=== PATIENT | male | born 1950 ===

== ENCOUNTER → 2018-10-03 13:18 | Outpatient (CLI) | payer MEDICARE, SELFPAY ==
[2018-10-03 13:56] LABS: Add Manual Diff / Slide Review NO; Basophils Absolute Auto 100 /uL (0-100); Basophils Percent Auto 0.8 % (0-2); Eosinophils Absolute Auto 100 /uL (0-450); Hematocrit 41.2 % (41-53); Hemoglobin 13.7 g/dL (13.5-17.5); Lymphocytes Absolute Auto 2300 /uL (1100-4500); Lymphocytes Percent Auto 23.7 % (25-40); Mean Corpuscular HGB Conc 33.4 % (30-36); Mean Corpuscular Hemoglobin 29.2 PG (26-34); Mean Corpuscular Volume 87.5 fL (80-100); Monocytes Absolute Auto 800 /uL (0-900); Monocytes Percent Auto 8.2 % (3-14); Neutrophils Absolute Auto 6500 /uL (1500-7000); Neutrophils Percent Auto 66.3 % (50-75); Platelet Count 259 X10^3/uL (150-400); Red Cell Distribution Width 14.9 % (11.6-14.8); White Blood Cell Count 9.8 X10^3/uL (4.5-11.0)
[2018-10-03 15:31] LABS: Hemoglobin A1C% w Est Avg Glu 5.5 % (4.0-6.0)
[2018-10-03 15:42] LABS: Free T3, Triiodothyronine Free 5.22 pg/mL (2.77-5.27); Free T4, Direct Thyroxine 1.14 ng/dL (0.78-2.19)
[2018-10-03 15:55] LABS: Thyroid Stimulating Hormone 4.73 uIU/mL (0.47-4.68)
[2018-10-03 15:56] LABS: Alanine Aminotransferase 17 IU/L (21-72); Albumin 4.3 g/dL (3.5-5.0); Albumin Globulin Ratio 1.2 (1.0-2.8); Alkaline Phosphatase 105 U/L (38-126); Aspartate Aminotransferase 33 IU/L (17-59); BUN Creatinine Ratio 17.3 (6-22); Bilirubin Total 0.5 mg/dL (0.2-1.3); Blood Urea Nitrogen 19 mg/dL (9-20); Calcium 9.8 mg/dL (8.4-10.2); Carbon Dioxide 24 mmol/L (22-32); Chloride 95 mmol/L (98-107); Estimated Glomerular Filt Rate > 60.0 mL/min (>60); Globulin 3.5 g/dL (1.7-4.1); Glucose 121 mg/dL (80-110); HEMOLYSIS < 15 (0-50); Potassium 4.7 mmol/L (3.4-5.1); Sodium 134 mmol/L (137-145); Total Protein 7.8 g/dL (6.3-8.2)
== END ==
PROVIDERS: PCP Internal Medicine; Visit Provider Internal Medicine
DX: E11.9 Type 2 diabetes mellitus without complications (principal); E03.9 Hypothyroidism, unspecified; I10 Essential (primary) hypertension; F10.20 Alcohol dependence, uncomplicated
CPT/HCPCS: 36415; 80053; 83036; 84439; 84443; 84481; 85025

== ENCOUNTER → 2019-01-02 11:13 | Outpatient (CLI) | payer MEDICARE, SELFPAY ==
[2019-01-02 14:20] LABS: TSH w/ Reflex to FT4 4.22 uIU/mL (0.47-4.68)
== END ==
PROVIDERS: PCP Internal Medicine; Visit Provider Internal Medicine
DX: E03.9 Hypothyroidism, unspecified (principal)
CPT/HCPCS: 36415; 84443

== ENCOUNTER → 2019-05-14 10:44 | Outpatient (CLI) | payer MEDICARE, SELFPAY ==
[2019-05-14 11:40] LABS: Blood Urea Nitrogen 17 mg/dL (9-20); Calcium 10.1 mg/dL (8.4-10.2); Carbon Dioxide 29 mmol/L (22-32); Chloride 92 mmol/L (98-107); Cholesterol 223 mg/dL (140-199); Estimated Glomerular Filt Rate > 60.0 mL/min (>60); Glucose 89 mg/dL (80-110); HDL Cholesterol 52 mg/dL (40-60); HEMOLYSIS < 15 (0-50); LDL Cholesterol Calculated 142 mg/dL (<100); Sodium 133 mmol/L (137-145); Triglycerides 144 mg/dL (35-150)
[2019-05-14 11:49] LABS: Hemoglobin A1C% w Est Avg Glu 5.8 % (4.0-6.0)
== END ==
PROVIDERS: PCP Internal Medicine; Referring Provider Internal Medicine; Visit Provider Internal Medicine
DX: E11.9 Type 2 diabetes mellitus without complications (principal); I10 Essential (primary) hypertension
CPT/HCPCS: 36415; 80048; 80061; 83036

== ENCOUNTER → 2019-07-03 15:21 | Outpatient (CLI) | payer MEDICARE, SELFPAY ==
--- NOTE | 2019-07-03 | DI.US.S_ITS ---
PROCEDURE: US PERIPH VENOUS LOW EXTREM RT INDICATIONS: SWELLING IN RIGHT LOWER LEG TECHNIQUE: Real-time imaging, as well as color and pulse Doppler interrogation, were performed of the lower extremity deep veins from the inguinal ligament to the popliteal fossa. COMPARISON: None. FINDINGS: The common femoral, femoral and popliteal veins are normally compressible, and free of intraluminal thrombus. Color and pulse Doppler demonstrate normal phasic intraluminal flow. There is normal augmentation response to distal compression maneuver. IMPRESSION: Negative for deep venous thrombosis. Dictated by: Ji Modi M.D. on 07/03/2019 at 15:04 Approved by: Ji Modi M.D. on 07/03/2019 at 15:04
== END ==
PROVIDERS: PCP Internal Medicine; Referring Provider Physician Assistant; Visit Provider Physician Assistant
DX: M79.89 Other specified soft tissue disorders (principal)
CPT/HCPCS: 93971

== ENCOUNTER → 2020-01-09 08:05 | Outpatient (CLI) | payer MEDICARE, SELFPAY ==
[2020-01-09 09:58] LABS: TSH w/ Reflex to FT4 3.69 uIU/mL (0.47-4.68)
[2020-01-09 11:27] LABS: Cholesterol 166 mg/dL (140-199); HDL Cholesterol 47 mg/dL (40-60); LDL Cholesterol Calculated 100 mg/dL (<100); Triglycerides 95 mg/dL (35-150)
[2020-01-09 11:38] LABS: Alanine Aminotransferase 20 IU/L (<50); Albumin 4.4 g/dL (3.5-5.0); Albumin Globulin Ratio 1.2 (1.0-2.8); Alkaline Phosphatase 108 U/L (38-126); Aspartate Aminotransferase 27 IU/L (17-59); BUN Creatinine Ratio 15.5 (6-22); Bilirubin Total 0.6 mg/dL (0.2-1.3); Blood Urea Nitrogen 17 mg/dL (9-20); Calcium 9.4 mg/dL (8.4-10.2); Carbon Dioxide 27 mmol/L (22-32); Chloride 97 mmol/L (98-107); Estimated Glomerular Filt Rate > 60.0 mL/min (>60); Globulin 3.8 g/dL (1.7-4.1); Glucose 117 mg/dL (80-110); HEMOLYSIS < 15 (0-50); Potassium 4.2 mmol/L (3.4-5.1); Sodium 134 mmol/L (137-145); Total Protein 8.2 g/dL (6.3-8.2)
== END ==
PROVIDERS: PCP Internal Medicine; Referring Provider Internal Medicine; Visit Provider Internal Medicine
DX: E11.9 Type 2 diabetes mellitus without complications (principal); E03.9 Hypothyroidism, unspecified
CPT/HCPCS: 36415; 80053; 80061; 84443

== ENCOUNTER → 2020-01-30 12:11 | Outpatient (CLI) | payer MEDICARE, SELFPAY ==
[2020-01-30 13:08] LABS: Hemoglobin A1C% w Est Avg Glu 5.9 % (4.0-6.0)
== END ==
PROVIDERS: PCP Internal Medicine; Referring Provider Podiatrist; Visit Provider Podiatrist
DX: Z01.818 Encounter for other preprocedural examination (principal); R73.9 Hyperglycemia, unspecified
CPT/HCPCS: 36415; 83036; 93005

== ENCOUNTER → 2020-02-04 09:20 | Outpatient (CLI) | payer MEDICARE, SELFPAY ==
[2020-02-04 11:11] LABS: COVID19 -Nasal RAPID Negative (Negative)
== END ==
PROVIDERS: PCP Internal Medicine; Visit Provider Physician Assistant
DX: Z11.59 Encounter for screening for other viral diseases (principal)
CPT/HCPCS: 87635

== ENCOUNTER 2020-02-06 06:34 | Day surgery (SDC) | payer MEDICARE, SELFPAY ==
[2020-02-06] VITALS (7 sets, daily range): BP systolic 99–160; BP diastolic 65–98; PULSE 70–83; RESP 12–22; TEMP 36.2–36.7; O2SAT 96–99; BMI 37.0
[2020-02-06] MEDS: LACTATED RINGERS 1,000 ML 100 ML IV (07:10)
--- NOTE | 2020-02-06 07:43 | P.OP_ITS ---
Operative Date/Time/Diagnoses Date of procedure: 02/06/20 Time of procedure: 07:44 Pre-op diagnosis: Right second hammertoe with chronic ulceration Post-op diagnosis: same Procedure & Clinicians Procedure: Right second metatarsophalangeal joint amputation Same procedure as scheduled: Yes Indications: Ongoing wound to the right second rigid hammertoe. Conservative measures failed to heal it and surgical intervention is warranted. We spoke of the risks, potential complications and expected outcomes. Consent was signed and no contraindications to the procedure at this time. Surgeon: Abbey Martinez Click Yes if Unassisted: Yes Anesthesia Type: MAC +/- and Sedation Operative Notes Closure Type: primary Specimen(s): other (Second metatarsophalangeal deep culture performed on right foot) Estimated Blood Loss (mL): 10 Blood products transfused: none Tourniquet time (min): 11 Procedure in detail: The patient was brought to the operating room and placed on the operating table in the supine position. The tourniquet was placed about the right ankle. Well-padded, appropriately aligned. After induction of anesthesia the foot and ankle were prepped and draped in the usual aseptic manner. The tourniquet was inflated. After check of anesthesia a full-thickness circumfere ntial incision was made around the 2nd toe. This was then continued into the metatarsophalangeal joint linearly. The toe was carefully disarticulated. Deep swabs performed for culture at the metatarsophalangeal joint. The area was irrigated with copious amounts of normal sterile saline. No necrotic tissue or abscesses were noted. Skin and tissue was revised to allow for appropriate closure. Vessels were cauterized and ligated as necessary. 4-0 Vicryl was used subcutaneously for closure and 3-0, 4-0 nylon for the skin. The area was dressed with a sterile lightly compressive dressing. Complications: none Post-operative Condition: stable Disposition: PACU Plan for aftercare: Following a period of postoperative monitoring, the patient will be discharged to home on written and oral postoperative instructions including keeping the dressing dry and intact, avoiding significant ambulation on the foot, and elevating the foot when seated home. DVT prevention techniques have been reviewed. For the 1st postoperative visit the dressing will be changed and close to the 3rd postoperative week we will likely remove the sutures.
--- NOTE | 2020-02-06 07:43 | PM.PREOP ---
Pre-operative Note COVID-19 COVID-19 status: Negative Result date/Date tested (Pos, Neg/Pending): 02/04/20 Interval Note History & Physical reviewed/Exam performed by Physician: Yes Changes to H&P: No
[2020-02-06] MEDS: CEFAZOLIN 2 GM/100 ML FROZ.PIGGY IV (08:16)
--- NOTE | 2020-02-06 08:19 | SUR.OPER ---
Supine on padded OR bed, head on pillow, arms secured on padded arm boards at <90 degrees abduction, legs uncrossed, right leg under control of surgeon, bump under right hip, safety belt at abdomen, tape over blanket over left legs.
[2020-02-06] MEDS: LIDOCAINE 2% INJ MDV 20 ML INJ (08:33)
[2020-02-06] MEDS: BUPIVACAINE 0.5% (PF) VIAL 30 ML INJ (08:34)
== END 2020-02-06 09:40 | disposition home or self-care (01) ==
LOC: OR 06:37
PROVIDERS: PCP Internal Medicine; Referring Provider Podiatrist; Visit Provider Podiatrist
PROC: (CPT 28820; principal; 2020-02-06 07:45)
DX: E11.621 Type 2 diabetes mellitus with foot ulcer (principal); L97.522 Non-pressure chronic ulcer of other part of left foot with fat layer exposed; M20.41 Other hammer toe(s) (acquired), right foot; E11.49 Type 2 diabetes mellitus with other diabetic neurological complication; L60.3 Nail dystrophy; Z79.84 Long term (current) use of oral hypoglycemic drugs; K21.9 Gastro-esophageal reflux disease without esophagitis; I10 Essential (primary) hypertension; E78.5 Hyperlipidemia, unspecified; E03.9 Hypothyroidism, unspecified; G47.33 Obstructive sleep apnea (adult) (pediatric)
CPT/HCPCS: 28820; 87070; 87205; J0690; J2250; J2405; J2704; J3010

== ENCOUNTER → 2020-05-23 10:15 | Outpatient (CLI) | payer MEDICARE, SELFPAY ==
[2020-05-23] MEDS: COVID-19 VACC, Ad26(JANSSEN)/PF 0.5 ML IM (10:25)
== END ==
PROVIDERS: PCP Internal Medicine; Visit Provider Internal Medicine
DX: Z23 Encounter for immunization (principal)
CPT/HCPCS: 0031A; 91303

== ENCOUNTER → 2020-06-30 06:41 | Outpatient (CLI) | payer OTHER, SELFPAY ==
--- NOTE | 2020-06-30 06:59 | DI.CT.S_ITS ---
PROCEDURE: CT SINUS SCREEN WO CON INDICATIONS: Cough, post-nasal drip TECHNIQUE: Noncontrast 3.0 mm axial images acquired from the frontal sinuses to the mid-sella, with coronal and sagittal reformats. For radiation dose reduction, the following was used: automated exposure control, adjustment of mA and/or kV according to patient size. COMPARISON: None. FINDINGS: Image quality: Excellent. Maxillary Sinuses: No bony remodeling or destruction. There is minimal to mild mucosal thickening seen within the inferior aspect of the right maxillary sinus. Ethmoid Air Cells: No bony remodeling or destruction. Sinuses are clear. Sphenoid Sinuses: No bony remodeling or destruction. Sinuses are clear. Frontal Sinuses: No bony remodeling or destruction. Sinuses are clear. Ostiomeatal Complexes: Ostiomeatal complexes are patent, yet there constitutionally narrowed, with bilateral Yasmeen cells. Miscellaneous: Visualized intra-orbital contents are normal. No veronika bullosa or paradoxical turbinate curvature. There is moderate leftward nasal septal deviation seen, with a leftward directed bony nasal septal spur. Incidental note is made of hyperostosis frontalis. This is not considered to be pathologic in a woman of this age. IMPRESSION: Minimal to mild mucosal thickening seen within the inferior right maxillary sinus. Narrowed ostiomeatal complexes, with bilateral Yasmeen cells. Moderate leftward nasal septal deviation, with a leftward directed bony nasal septal spur. Dictated by: Ji Modi M.D. on 06/30/2020 at 10:15 Approved by: Ji Modi M.D. on 06/30/2020 at 10:17
== END ==
PROVIDERS: PCP Internal Medicine; Referring Provider Otolaryngology; Visit Provider Otolaryngology
DX: J32.4 Chronic pansinusitis (principal); R05 Cough; R09.82 Postnasal drip; J34.2 Deviated nasal septum
CPT/HCPCS: 70486

== ENCOUNTER 2020-10-08 17:16 | Inpatient (IN) | payer OTHER, SELFPAY ==
[2020-10-08] VITALS (13 sets, daily range): BP systolic 76–136; BP diastolic 51–68; PULSE 79–98; RESP 18; TEMP 36.8; O2SAT 91–98; BMI 39.0
[2020-10-08 19:18] LABS: Add Manual Diff / Slide Review NO; Basophils Absolute Auto 200 /uL (0-100); Basophils Percent Auto 1.3 % (0-2); Eosinophils Absolute Auto 100 /uL (0-450); Eosinophils Percent Auto 0.6 % (2-4); Hematocrit 37.5 % (41-53); Hemoglobin 12.5 g/dL (13.5-17.5); Lymphocytes Absolute Auto 2600 /uL (1100-4500); Lymphocytes Percent Auto 15.7 % (25-40); Mean Corpuscular HGB Conc 33.3 % (30-36); Mean Corpuscular Hemoglobin 28.9 PG (26-34); Mean Corpuscular Volume 86.7 fL (80-100); Monocytes Absolute Auto 1100 /uL (0-900); Monocytes Percent Auto 6.4 % (3-14); Neutrophils Absolute Auto 12800 /uL (1500-7000); Platelet Count 248 X10^3/uL (150-400); Red Blood Cell Count 4.32 X10^6/uL (4.5-5.9); Red Cell Distribution Width 14.1 % (11.6-14.8); White Blood Cell Count 16.8 X10^3/uL (4.5-11.0)
[2020-10-08 19:20] LABS: Lactate (Lactic Acid) 1.8 mmol/L (0.7-2.1)
[2020-10-08 19:22] LABS: Alanine Aminotransferase 19 IU/L (<50); Albumin 4.2 g/dL (3.5-5.0); Albumin Globulin Ratio 1.2 (1.0-2.8); Alkaline Phosphatase 89 U/L (38-126); Aspartate Aminotransferase 25 IU/L (17-59); BUN Creatinine Ratio 16.5 (6-22); Bilirubin Total 0.8 mg/dL (0.2-1.3); Blood Urea Nitrogen 18 mg/dL (9-20); Calcium 9.2 mg/dL (8.4-10.2); Carbon Dioxide 20 mmol/L (22-32); Chloride 91 mmol/L (98-107); Estimated Glomerular Filt Rate > 60.0 mL/min (>60); Globulin 3.4 g/dL (1.7-4.1); Glucose 125 mg/dL (80-110); HEMOLYSIS < 15 (0-50); Lipase 80 U/L (23-300); Potassium 4.7 mmol/L (3.4-5.1); Sodium 125 mmol/L (137-145); Total Protein 7.6 g/dL (6.3-8.2)
[2020-10-08 19:38] LABS: Procalcitonin 0.08 ng/mL (<0.5)
--- NOTE | 2020-10-08 21:37 | ED_ITS ---
HPI - Wound/Laceration General Chief Complaint: Wound/Laceration Stated Complaint: sent for injection Time Seen by Provider: 10/08/20 21:13 Source: patient Mode of arrival: Ambulatory Limitations: no limitations History of Present Illness HPI narrative: Patient sent in by his static balancer Dr. Martinez. Seen in the off ice today. Has chronic wound infection to the great toe. Ulceration. With dressing changes. However today has red streaking to the proximal half of the leg. Anteriorly. No fever chills. Patient has decreased sensation from the diabetic neuropathy. Related Data Home Medications Medication Instructions Recorded Confirmed insulin human U-100 NPH-regulr 20 unit SUBCUT BID 06/02/18 10/09/20 70-30 mix 100 unit/mL subcutaneous susp (Novolin 70/30 U-100 Insulin) levothyroxine 25 mcg capsule 25 mcg PO DAILY 06/02/18 10/09/20 metformin 500 mg tablet 500 mg PO BID 06/02/18 10/09/20 omeprazole 20 mg tablet,delayed 20 mg PO DAILY 06/02/18 10/09/20 release Respironics Dreamstation CPAP #1 ea 10/09/18 10/09/20 atorvastatin 20 mg tablet 20 mg PO DAILY 02/06/20 10/09/20 lisinopril 20 mg tablet 20 mg PO DAILY 02/06/20 10/09/20 Allergies Allergy/AdvReac Type Severity Reaction Status Date / Time No Known Drug Allergies Allergy Verified 02/06/20 06:47 Review of Systems Review of Systems Narrative: GENERAL: Denies chills, fatigue, malaise, fever, sweats. HEENT: Denies sinus pain, ear pain, sore throat RESPIRATORY: Denies dyspnea, cough CARDIOVASCULAR: Denies chest pain, palpitations GASTROINTESTINAL: Denies nausea, vomiting, abdominal pain : Denies dysuria, frequency, hematuria MUSCULOSKELETAL: denies muscle or bony pain SKIN: Complains of rash/skin wound. 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) Hypertension Insomnia due to medical condition Nocturnal hypoxemia Obesity (BMI 30-39.9) Obstructive sleep apnea, adult Snoring Type 2 diabetes mellitus without complications Surgical History Amputated toe of right foot H/O partial thyroidectomy History of bowel resection Family History Other Diabetes mellitus Family history of bowel cancer Social History marital status: household members: spouse Smoking Status: Former smoker alcohol intake: current Smoking Status: Former smoker alcohol intake frequency: 0-2 drinks per day Substance Use Type: does not use Exam Narrative Exam Narrative: GENERAL: in no distress, not toxic not dyspneic HEAD: Normocephalic. EXTREMITIES: Examination right lower extremity. There is a wound to the tip of the great toe. Small amount of bone exposure seen. No oozing or discharge. Patient has chronic decreased sensation due to diabetic neuropathy. No foul odor. Dressing removed. There is red streaking up the dorsum of the foot radiating up to proximal leg. Does not involve the knee. No abscess NEURO: AOx4. SKIN: Warm and dry PSYCH: Not anxious, is cooperative Initial Vital Signs Initial Vital Signs: Vital Signs Temperature 98.3 F 10/08/20 17:33 Pulse Rate 98 H 10/08/20 17:33 Respiratory Rate 18 10/08/20 17:33 Blood Pressure 119/67 10/08/20 17:33 Pulse Oximetry 96 10/08/20 17:33 Course Course Course Narrative: No new issues during course of stay Orders Ordered: Atorvastatin Calcium (Atorvastatin 20 Mg Tablet) 20 mg PO DAILY [facility] Last Admin: 10/11/20 08:32 Dose: 20 mg Documented by: Admin: 10/10/20 09:48 Dose: 20 mg Documented by: Admin: 10/09/20 08:39 Dose: 20 mg Documented by: DEBRA Dextrose (Dextrose 50 % In Water 25 Gm/50 Ml Syringe) 25 gm IV PRN PRN PRN Reason: Hypoglycemia Enoxaparin Sodium (Enoxaparin 40 Mg/0.4 Ml Syringe) 40 mg SUBCUT DAILY [facility] Last Admin: 10/11/20 08:33 Dose: 40 mg Documented by: Admin: 10/10/20 15:32 Dose: 40 mg Documented by: DEBRA Hydromorphone HCl (Hydromorphone 0.5 Mg Inj) 0.5 mg IV Q6H PRN PRN Reason: Pain, Moderate (4-6) Vancomycin HCl (Vancomycin) 1,250 mg in 250 mls @ 250 mls/hr IV Q12H [facility] Last Admin: 10/11/20 08:33 Dose: 250 mls/hr Documented by: Infusion: 10/10/20 23:28 Dose: 250 mls/hr Documented by: Admin: 10/10/20 21:41 Dose: 250 mls/hr Documented by: Infusion: 10/10/20 10:45 Dose: 250 mls/hr Documented by: Admin: 10/10/20 09:45 Dose: 250 mls/hr Documented by: Infusion: 10/09/20 21:22 Dose: 250 mls/hr Documented by: Admin: 10/09/20 20:22 Dose: 250 mls/hr Documented by: Infusion: 10/09/20 09:40 Dose: 0 mls/hr Documented by: Admin: 10/09/20 08:39 Dose: 250 mls/hr Documented by: DEBRA Sodium Chloride (Normal Saline 0.9%) 250 mls @ 21 mls/hr IV Q24H PRN PRN Reason: Flush Last Admin: 10/10/20 22:54 Dose: 21 mls/hr Documented by: MEAGAN Insulin Human Isoph/Insulin Regular (Insulin Nph/Reg 70-30 100 Unit/Ml 3ml Vial) 20 unit SUBCUT BIDAC [facility] Last Admin: 10/11/20 08:31 Dose: 20 unit Documented by: DEBRA Cosigned by: FLORESITA Insulin Human Lispro (Insulin Lispro 100 Unit/Ml 3ml Vial) [facility]; Protocol Last Admin: 10/11/20 08:32 Dose: Not Given Documented by: Admin: 10/10/20 20:30 Dose: Not Given Documented by: Admin: 10/10/20 16:45 Dose: 2 unit Documented by: MEAGAN Cosigned by: HERBER Admin: 10/10/20 12:06 Dose: 1 unit Documented by: DEBRA Cosigned by: HOA Admin: 10/10/20 09:44 Dose: 1 unit Documented by: DEBRA Cosigned by: ALISHA Admin: 10/09/20 20:23 Dose: 1 unit Documented by: MELVIN Cosigned by: HERBER Admin: 10/09/20 16:18 Dose: 1 unit Documented by: MELVIN Cosigned by: HERBER Ketorolac Tromethamine (Ketorolac 30 Mg/Ml Vial) 30 mg IV Q6HR PRN PRN Reason: Pain, Severe (7-10), fever Stop: 10/14/20 01:01 Levothyroxine Sodium (Levothyroxine 25 Mcg Tablet) 25 mcg PO 0600 [facility] Last Admin: 10/11/20 05:59 Dose: 25 mcg Documented by: Admin: 10/10/20 06:00 Dose: 25 mcg Documented by: Admin: 10/09/20 07:07 Dose: 25 mcg Documented by: JAY Lisinopril (Lisinopril 20 Mg Tablet) 20 mg PO DAILY [facility] Last Admin: 10/11/20 08:32 Dose: 20 mg Documented by: DEBRA Magnesium Hydroxide (Magnesium Hydroxide 30 Ml Udc) 30 ml PO DAILY PRN PRN Reason: Reflux Naloxone HCl (Naloxone 0.4 Mg/Ml Vial) 0.2 mg IV Q2MIN PRN PRN Reason: Opiate Reversal Ondansetron HCl (Ondansetron 4 Mg/2 Ml Inj) 4 mg IV Q8HR PRN PRN Reason: Nausea And Vomiting Pantoprazole Sodium (Pantoprazole Dr 20 Mg Tablet) 20 mg PO 0600 [facility] Last Admin: 10/11/20 05:59 Dose: 20 mg Documented by: VILMA Sennosides (Sennosides 8.6 Mg Tablet) 17.2 mg PO BEDTIME [facility] Last Admin: 10/10/20 21:18 Dose: Not Given Documented by: Admin: 10/09/20 20:22 Dose: 17.2 mg Documented by: MELVIN Sodium Biphosphate/Sodium Phosphate (Fleets Enema) [address] PRN PRN PRN Reason: Constipation Sodium Chloride (Sodium Chloride 0.9% Flush) 10 ml IV PRN PRN PRN Reason: Flush Sodium Chloride (Sodium Chloride 0.9% Flush) 10 ml IV BID [facility] Last Admin: 10/11/20 08:33 Dose: 10 ml Documented by: Admin: 10/10/20 21:41 Dose: 10 ml Documented by: Admin: 10/10/20 09:45 Dose: 10 ml Documented by: DEBRA Discontinued Medications Vancomycin HCl (Vancomycin) 1,000 mg in 200 mls @ 200 mls/hr IV NOW ONE Stop: 10/08/20 22:42 Last Infusion: 10/08/20 23:39 Dose: 0 mls/hr Documented by: Admin: 10/08/20 21:54 Dose: 200 mls/hr Documented by: ARACELI Sodium Chloride (Normal Saline 0.9%) 1,000 mls @ 125 mls/hr IV CONT [facility] Last Admin: 10/09/20 13:17 Dose: 125 mls/hr Documented by: Infusion: 10/09/20 11:26 Dose: 125 mls/hr Documented by: Admin: 10/09/20 03:26 Dose: 125 mls/hr Documented by: JAY Sodium Chloride (Normal Saline 0.9%) 1,000 mls @ 1,000 mls/hr IV BOLUS ONE Stop: 10/09/20 04:19 Last Admin: 10/09/20 03:35 Dose: Not Given Documented by: ANDRESRSTA Sodium Chloride (Normal Saline 0.9%) 1,000 mls @ 1,000 mls/hr IV BOLUS ONE Stop: 10/09/20 03:19 Last Admin: 10/09/20 03:34 Dose: Not Given Documented by: AHARSTA Sodium Chloride (Normal Saline 0.9%) 1,000 mls @ 1,000 mls/hr IV BOLUS ONE Stop: 10/09/20 02:17 Last Infusion: 10/09/20 03:26 Dose: 0 mls/hr Documented by: Admin: 10/09/20 02:10 Dose: 1,000 mls/hr Documented by: TOBY Insulin Human Lispro (Insulin Lispro 100 Unit/Ml 3ml Vial) 0 unit SUBCUT ACHS [facility]; Protocol Insulin Human Lispro (Insulin Lispro 100 Unit/Ml 3ml Vial) 0 unit SUBCUT Q6H [facility]; Protocol Last Admin: 10/09/20 12:10 Dose: 1 unit Documented by: DEBRA Cosigned by: TORI Admin: 10/09/20 06:39 Dose: 1 unit Documented by: JAY Cosigned by: TOBY Pantoprazole Sodium (Pantoprazole 40 Mg Vial) 20 mg IV DAILY [facility] Stop: 10/11/20 08:59 Last Admin: 10/10/20 09:45 Dose: 20 mg Documented by: Admin: 10/09/20 08:39 Dose: 20 mg Documented by: DEBRA Pantoprazole Sodium (Pantoprazole Dr 20 Mg Tablet) 20 mg PO DAILY [facility] Vancomycin HCl (Vancomycin Per Pharmacy) 1 request MISC NOW ONE Stop: 10/09/20 01:11 Last Admin: 10/09/20 02:32 Dose: Not Given Documented by: TOBY Vancomycin HCl (Vancomycin Trough) 1 request MIS 2030 [facility] Stop: 10/10/20 20:31 Last Admin: 10/10/20 21:14 Dose: Not Given Documented by: MEAGAN Reevaluation(s) Reevaluation #1: Patient understands need for admission to hospital Time: 21:51 Consultations Consultation #1: Spoke with Orthopedics Dr. Mcneil, on-call for Dr. Martinez. Patient to be admitted to hospitalist. Scheduled for MRI with and without contrast for the foot tomorrow. Keep patient NPO tomorrow, she will speak with Dr. Martinez as far as debridement of toe Time: 21:51 Consultation #2: Spoke with hospitalist, nurse practitioner, will admit Time: 00:46 Vital Signs Vital signs: Vital Signs - 8 hr 10/08/20 17:33 Temperature 98.3 F Pulse Rate 98 H Respiratory Rate 18 Blood Pressure 119/67 Pulse Oximetry 96 MDM - Wound/Laceration Differential Diagnosis Differential diagnosis: Likely other (Diabetic foot wound infection. Osteo myelitis) Lab Data Result diagrams: 10/10/20 11:05 10/10/20 11:05 Labs: Lab Results 10/08/20 10/08/20 10/08/20 Range/Units 18:58 18:58 18:58 WBC 16.8 H (4.5-11.0) X10^3/uL RBC 4.32 L (4.5-5.9) X10^6/uL Hgb 12.5 L (13.5-17.5) g/dL Hct 37.5 L (41-53) % MCV 86.7 (80-100) fL MCH 28.9 (26-34) PG MCHC 33.3 (30-36) % RDW 14.1 (11.6-14.8) % Plt Count 248 (150-400) X10^3/uL Neut % (Auto) 76.0 H (50-75) % Lymph % (Auto) 15.7 L (25-40) % [place] % (Auto) 6.4 (3-14) % Eos % (Auto) 0.6 L (2-4) % Baso % (Auto) 1.3 (0-2) % Neut # (Auto) 54834 H (5000-8854) /uL Lymph # (Auto) 2600 (3825-8536) /uL [place] # (Auto) 1100 H (0-900) /uL Eos # (Auto) 100 (0-450) /uL Baso # (Auto) 200 H (0-100) /uL ESR (0-15) MM/HR Sodium 125 L (137-145) mmol/L Potassium 4.7 (3.4-5.1) mmol/L Chloride 91 L (98-107) mmol/L Carbon Dioxide 20 L (22-32) mmol/L BUN 18 (9-20) mg/dL Creatinine 1.09 (0.66-1.25) mg/dL Estimated GFR > 60.0 (>60) mL/min BUN/Creatinine Ratio 16.5 (6-22) Glucose 125 H (80-110) mg/dL Hemoglobin A1c (4.0-6.0) % Lactate 1.8 (0.7-2.1) mmol/L Calcium 9.2 (8.4-10.2) mg/dL Magnesium (1.6-2.3) mg/dL Total Bilirubin 0.8 (0.2-1.3) mg/dL AST 25 (17-59) IU/L ALT 19 (<50) IU/L Alkaline Phosphatase 89 (38-126) U/L C-Reactive Protein (<1.0) mg/dL Total Protein 7.6 (6.3-8.2) g/dL Albumin 4.2 (3.5-5.0) g/dL Globulin 3.4 (1.7-4.1) g/dL Albumin/Globulin Ratio 1.2 (1.0-2.8) Lipase 80 (23-300) U/L Procalcitonin 0.08 (<0.5) ng/mL SARS-CoV-2 (PCR) (Negative) 10/08/20 10/08/20 10/08/20 Range/Units 18:58 18:58 18:58 WBC (4.5-11.0) X10^3/uL RBC (4.5-5.9) X10^6/uL Hgb (13.5-17.5) g/dL Hct (41-53) % MCV (80-100) fL MCH (26-34) PG MCHC (30-36) % RDW (11.6-14.8) % Plt Count (150-400) X10^3/uL Neut % (Auto) (50-75) % Lymph % (Auto) (25-40) % [place] % (Auto) (3-14) % Eos % (Auto) (2-4) % Baso % (Auto) (0-2) % Neut # (Auto) (0878-3385) /uL Lymph # (Auto) (1574-3347) /uL [place] # (Auto) (0-900) /uL Eos # (Auto) (0-450) /uL Baso # (Auto) (0-100) /uL ESR 37 H (0-15) MM/HR Sodium (137-145) mmol/L Potassium (3.4-5.1) mmol/L Chloride (98-107) mmol/L Carbon Dioxide (22-32) mmol/L BUN (9-20) mg/dL Creatinine (0.66-1.25) mg/dL Estimated GFR (>60) mL/min BUN/Creatinine Ratio (6-22) Glucose (80-110) mg/dL Hemoglobin A1c (4.0-6.0) % Lactate (0.7-2.1) mmol/L Calcium (8.4-10.2) mg/dL Magnesium 1.7 (1.6-2.3) mg/dL Total Bilirubin (0.2-1.3) mg/dL AST (17-59) IU/L ALT (<50) IU/L Alkaline Phosphatase (38-126) U/L C-Reactive Protein 8.1 H (<1.0) mg/dL Total Protein (6.3-8.2) g/dL Albumin (3.5-5.0) g/dL Globulin (1.7-4.1) g/dL Albumin/Globulin Ratio (1.0-2.8) Lipase (23-300) U/L Procalcitonin (<0.5) ng/mL SARS-CoV-2 (PCR) (Negative) 10/08/20 10/08/20 Range/Units 18:58 21:45 WBC (4.5-11.0) X10^3/uL RBC (4.5-5.9) X10^6/uL Hgb (13.5-17.5) g/dL Hct (41-53) % MCV (80-100) fL MCH (26-34) PG MCHC (30-36) % RDW (11.6-14.8) % Plt Count (150-400) X10^3/uL Neut % (Auto) (50-75) % Lymph % (Auto) (25-40) % [place] % (Auto) (3-14) % Eos % (Auto) (2-4) % Baso % (Auto) (0-2) % Neut # (Auto) (7531-6700) /uL Lymph # (Auto) (9250-6910) /uL [place] # (Auto) (0-900) /uL Eos # (Auto) (0-450) /uL Baso # (Auto) (0-100) /uL ESR (0-15) MM/HR Sodium (137-145) mmol/L Potassium (3.4-5.1) mmol/L Chloride (98-107) mmol/L Carbon Dioxide (22-32) mmol/L BUN (9-20) mg/dL Creatinine (0.66-1.25) mg/dL Estimated GFR (>60) mL/min BUN/Creatinine Ratio (6-22) Glucose (80-110) mg/dL Hemoglobin A1c 6.5 H (4.0-6.0) % Lactate (0.7-2.1) mmol/L Calcium (8.4-10.2) mg/dL Magnesium (1.6-2.3) mg/dL Total Bilirubin (0.2-1.3) mg/dL AST (17-59) IU/L ALT (<50) IU/L Alkaline Phosphatase (38-126) U/L C-Reactive Protein (<1.0) mg/dL Total Protein (6.3-8.2) g/dL Albumin (3.5-5.0) g/dL Globulin (1.7-4.1) g/dL Albumin/Globulin Ratio (1.0-2.8) Lipase (23-300) U/L Procalcitonin (<0.5) ng/mL SARS-CoV-2 (PCR) Negative (Negative) Imaging Data US - DVT: Radiologist's Impression: Read by overnight radiologist negative for DVT. MDM Narrative Medical decision making narrative: Appropriate for admission for IV therapy as well as orthopedic consult. White count noted. Not toxic. Discharge Plan Departure Patient Disposition: Admitted as Observation Clinical Impression: Complicated wound infection Admit Date/Time: 10/09/20 00:48 Admit Provider: Cathy Castillo
--- NOTE | 2020-10-08 21:44 | DI.US.S_ITS ---
PROCEDURE: US PERIPH VENOUS LOW EXTREM RT INDICATIONS: PAIN, EDEMA TECHNIQUE: Real-time imaging, as well as color and pulse Doppler interrogation, were performed of the lower extremity deep veins from the inguinal ligament to the popliteal fossa. COMPARISON: None. FINDINGS: The common femoral, femoral and popliteal veins are normally compressible, and free of intraluminal thrombus. Color and pulse Doppler demonstrate normal phasic intraluminal flow. There is normal augmentation response to distal compression maneuver. IMPRESSION: No evidence of deep vein thrombosis involving the right lower extremity. Dictated by: Monika Bishop MD, PhD on 10/09/2020 at 8:37 Approved by: Monika Bishop MD, PhD on 10/09/2020 at 8:37
[2020-10-08] MEDS: VANCOMYCIN 1,000 MG/200 ML PIGGYBACK 200 MG IV (21:54)
[2020-10-08 22:17] LABS: Erythrocyte Sedimentation Rate 37 MM/HR (0-15)
[2020-10-08 22:31] LABS: C-Reactive Protein Quant 8.1 mg/dL (<1.0)
[2020-10-08 22:48] LABS: COVID19 - ADMIT (NP swab/PCR) Negative (Negative)
[2020-10-09] VITALS (14 sets, daily range): BP systolic 118–145; BP diastolic 58–88; PULSE 75–95; RESP 17–18; TEMP 35.6–36.6; O2SAT 92–99; BMI 39.6
--- NOTE | 2020-10-09 01:10 | DI.MRI.S_ITS ---
PROCEDURE: MR FOOT RT WO/W CON INDICATIONS: Rt great toe DM ulceration r/o Osteo TECHNIQUE: Noncontrast coronal T1 spin echo and STIR, sagittal T1 spin echo with fat saturation and STIR, axial T1 spin echo and T2 fast spin echo with fat saturation. After the administration of contrast, axial/sagittal/coronal T1 spin echo with fat saturation through the right foot. COMPARISON: [facility], MR, FOOT W&WO CONTRAST, 01/21/2016, 19:24. [facility], CR, XR TOE(S) RIGHT, 10/08/2020, 15:56. FINDINGS: Image quality: Exam is severely motion degraded. Incidentally noted amputation of the 2nd toe at the level of the MTP joint. No abnormal intraosseous enhancement. There is preservation of the fat signal intensity on T1 weighted pulse sequences of the great toe. However the axial T1 weighted pulse sequences are severely motion degraded. There is severe 1st MTP and great toe interphalangeal joint degeneration. Marginal erosion involving the medial aspect of the 1st metatarsal head. Sesamoid signal intensity within normal limits. Soft tissues: Great toe soft tissue swelling is present. No definite rim enhancing fluid collection to suggest abscess. Grossly unremarkable appearance of the flexor and extensor tendons where visualized. Muscle signal intensity is within normal limits. IMPRESSION: Motion degraded examination however no specific marrow signal changes within the great toe to suggest osteomyelitis. No suspicious marrow enhancement or soft tissue abscess seen. Great toe soft tissue swelling/cellulitis. Incidentally noted marginal erosion at the medial aspect of the 1st metatarsal head. Dictated by: Marco Macedo M.D. on 10/09/2020 at 11:31 Approved by: Marco Macedo M.D. on 10/09/2020 at 11:41
[2020-10-09 01:43] LABS: Magnesium 1.7 mg/dL (1.6-2.3)
--- NOTE | 2020-10-09 01:52 | PM.HP.1 ---
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 Patient states that this began 1 month ago with some mild redness at the base of the nail than approximately 4 days ago on Tuesday noted increased redness with splitting open of the ulceration to the medial side of the right great toe. He was seen by his fill plant operator Dr. Martinez yesterday for his Right great toe chronic wound infection/ulceration and dressing change,. Today he presented with new onset red streaking medial calf mid-shaft, worsening erythema/ inflammation and was sent to the ED by Dr. Martinez. Patient denies fever, body aches, chills, nausea, vomiting, dizziness, weakness, chest pain, or shortness of breath. Patient also denies hemataemesis, hematochezia, or hematuria. Patient has a history hypothyroidism, hyperlipidemia, insulin-dependent type 2 diabetes with polyneuropathy, essential hypertension, history of alcohol abuse, alcohol hepatitis, liver disease, diverticulosis with Ralph's esophagus, EVERT, and obesity. Patient's vitals upon admit were stable BP 119/67 common HR 98, R 18, O2 saturation 96% on room air. It should be noted after reviewing patient's vital signs in the chart in 2019 on last admit systolic blood pressures ran between 135-160 predominantly staying in the 150-160 range. Suggesting that patient's blood pressure today is likely reflecting the development of early sepsis possibly resulting from osteomyelitis. Patient's WBCs were elevated at 16.8 with a left shift neutrophils 12,800, ESR 37, CRP 8.1, lipase and procalcitonin were both unremarkable. HGB 12.5 HCT 37.5, hyponatremia mild at 1:25 a.m., chloride 91, HC03 of 20, and a glucose of 125. Patient's Sofa score: 1 upon admit. Vascular ultrasound leg and foot negative for DVT. Dr. Underwood orthopedic/ taking call for Dr. Martinez (fill plant operator) consulted on the case. Dr. Mcneil recommended patient be admitted for MRI with and without contrast of the right foot, NPO for possible surgical I&D tomorrow. Patient started on vancomycin per pharmacy in ED. Patient admitted for right foot great toe diabetic wound ulceration. Patient History Medical History Acquired hypothyroidism Allergic rhinosinusitis Diverticulosis Excessive daytime sleepiness GERD (gastroesophageal reflux disease) History of alcohol dependence History of alcoholic hepatitis History of thyrotoxicosis (~1971) Hypertension Insomnia due to medical condition Nocturnal hypoxemia Obesity (BMI 30-39.9) Obstructive sleep apnea, adult Snoring Type 2 diabetes mellitus without complications Surgical History (Updated 10/09/20 @ 02:13 by HALEY Carbajal-LILLI) Amputated toe of right foot H/O partial thyroidectomy History of bowel resection Family & Social History Family History Other Diabetes mellitus Family history of bowel cancer Social History: household members spouse, patient is mostly retired but 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 Safety & Behavioral: Feels Safe in Current Yes Environment Tobacco & Substance use: Smoking Status Former smoker alcohol intake current alcohol intake frequency 0-2 drinks per day Substance Use Type does not use Meds Home Medications and Allergies Home Medications Medication Instructions Recorded Confirmed Type insulin human U-100 NPH-regulr 20 unit SUBCUT BID 06/02/18 10/09/20 History 70-30 mix 100 unit/mL subcutaneous susp (Novolin 70/30 U-100 Insulin) levothyroxine 25 mcg capsule 25 mcg PO DAILY 06/02/18 10/09/20 History metformin 500 mg tablet 500 mg PO BID 06/02/18 10/09/20 History omeprazole 20 mg tablet,delayed 20 mg PO DAILY 06/02/18 10/09/20 History release Respironics Dreamstation CPAP #1 ea 10/09/18 10/09/20 History atorvastatin 20 mg tablet 20 mg PO DAILY 02/06/20 10/09/20 History lisinopril 20 mg tablet 20 mg PO DAILY 02/06/20 10/09/20 History Allergies Allergy/AdvReac Type Severity Reaction Status Date / Time No Known Drug Allergies Allergy Verified 02/06/20 06:47 Review of Systems Review of Systems Narrative: All systems reviewed with the patient and are negative except otherwise documented. Exam Vital Signs (past 8 hours): - 10/08/20 19:18 10/08/20 19:30 10/08/20 20:00 Temperature Pulse Rate 91 H 90 87 Respiratory Rate Blood Pressure 109/59 L 112/62 Pulse Oximetry 95 92 93 10/08/20 20:30 10/08/20 21:00 10/08/20 21:30 Temperature Pulse Rate 84 88 86 Respiratory Rate Blood Pressure 121/58 L 118/62 116/56 L Pulse Oximetry 91 93 94 10/08/20 22:00 10/08/20 22:30 10/08/20 22:31 Temperature Pulse Rate 84 79 79 Respiratory Rate Blood Pressure 116/59 L 76/51 L Pulse Oximetry 94 97 95 10/08/20 22:35 10/08/20 23:00 10/08/20 23:30 Temperature Pulse Rate 81 83 89 Respiratory Rate Blood Pressure 133/66 136/68 100/53 L Pulse Oximetry 98 97 93 10/09/20 00:00 10/09/20 00:30 10/09/20 01:00 Temperature Pulse Rate 95 H 94 H 93 H Respiratory Rate Blood Pressure 118/71 129/59 L 127/58 L Pulse Oximetry 97 94 95 10/09/20 01:20 Temperature 97.7 F Pulse Rate 82 Respiratory Rate 18 Blood Pressure 122/78 Pulse Oximetry 97 Oxygen Delivery Method Room Air Oxygen Flow Rate 0 Narrative Exam Narrative: General: Patient is a well-developed, well-nourished in no distress at this time. HEENT: Normocephalic, atraumatic, extraocular muscles intact, oral pharynx is clear and mucous membranes are moist. Neck is supple and symmetric, trachea is midline, no adenopathy, no thyroid enlargement, nontender, no masses palpated. Negative for JVD Chest: Normal AP diameter and contour without kyphoscoliosis, no nasal flaring, retractions, or tachypneic labored Lungs: Auscultation of all lung mejia are clear without adventitious sounds, wheezes, rhonchi, or rales. Cardio: S1 & S2 with regular rate and rhythm without murmur, rubs, or gallops, no carotid bruit, no cardiac pulsations present. Abdomen: Soft nontender, negative for organomegaly, or masses. Bowel sounds are present in all 4 quadrants without guarding or rebound, no CVA tenderness. Musculoskeletal: Muscle strength and tone are equal within normal limits, no deformity, crepitus, effusions, cyanosis, clubbing or edema present. Full range of motion intact radial and pedal pulses are normal. With the exception of right lower extremity- There is a wound to the tip of the great toe, medial side. Small amount of bone exposure seen, appears as bloody exposed tissue without oozing or discharge. Patient has chronic decreased sensation due to diabetic polyneuropathy No foul odor. There is red streaking up the dorsum of the foot radiating up to medial proximal leg. Does not involve the knee. No abscess. Erythema around the base of the right toe has decreased fom Dr. Balderas markings yesterday, red streaking remains up to midshaft marking. patient has no pain with palpation, pedal pulse intact, pt able to feel sensation of touch. Skin: Warm dry and intact without rashes, ulcerations or petechiae. see right extremity above. Neuro: Alert and orientated x3, sensation to touch intact, no gross deficits noted of cranial nerves. Psych: Patient has a well-kept appearance, appropriate affect, mental status attitude thought context and judgment are appropriate for age. Objective Labs Result Diagrams: 10/09/20 06:03 10/08/20 18:58 Labs: Laboratory Results - last 24 hr 10/08/20 10/08/20 10/08/20 18:58 18:58 18:58 WBC 16.8 H RBC 4.32 L Hgb 12.5 L Hct 37.5 L MCV 86.7 MCH 28.9 MCHC 33.3 RDW 14.1 Plt Count 248 Neut % (Auto) 76.0 H Lymph % (Auto) 15.7 L [place] % (Auto) 6.4 Eos % (Auto) 0.6 L Baso % (Auto) 1.3 Neut # (Auto) 65690 H Lymph # (Auto) 2600 [place] # (Auto) 1100 H Eos # (Auto) 100 Baso # (Auto) 200 H ESR Sodium 125 L Potassium 4.7 Chloride 91 L Carbon Dioxide 20 L BUN 18 Creatinine 1.09 Estimated GFR > 60.0 BUN/Creatinine Ratio 16.5 Glucose 125 H Lactate 1.8 Calcium 9.2 Magnesium Total Bilirubin 0.8 AST 25 ALT 19 Alkaline Phosphatase 89 C-Reactive Protein Total Protein 7.6 Albumin 4.2 Globulin 3.4 Albumin/Globulin Ratio 1.2 Lipase 80 Procalcitonin 0.08 SARS-CoV-2 (PCR) 10/08/20 10/08/20 10/08/20 18:58 18:58 18:58 WBC RBC Hgb Hct MCV MCH MCHC RDW Plt Count Neut % (Auto) Lymph % (Auto) [place] % (Auto) Eos % (Auto) Baso % (Auto) Neut # (Auto) Lymph # (Auto) [place] # (Auto) Eos # (Auto) Baso # (Auto) ESR 37 H Sodium Potassium Chloride Carbon Dioxide BUN Creatinine Estimated GFR BUN/Creatinine Ratio Glucose Lactate Calcium Magnesium 1.7 Total Bilirubin AST ALT Alkaline Phosphatase C-Reactive Protein 8.1 H Total Protein Albumin Globulin Albumin/Globulin Ratio Lipase Procalcitonin SARS-CoV-2 (PCR) 10/08/20 21:45 WBC RBC Hgb Hct MCV MCH MCHC RDW Plt Count Neut % (Auto) Lymph % (Auto) [place] % (Auto) Eos % (Auto) Baso % (Auto) Neut # (Auto) Lymph # (Auto) [place] # (Auto) Eos # (Auto) Baso # (Auto) ESR Sodium Potassium Chloride Carbon Dioxide BUN Creatinine Estimated GFR BUN/Creatinine Ratio Glucose Lactate Calcium Magnesium Total Bilirubin AST ALT Alkaline Phosphatase C-Reactive Protein Total Protein Albumin Globulin Albumin/Globulin Ratio Lipase Procalcitonin SARS-CoV-2 (PCR) Negative Assessment & Plan Assessment & Plan narrative: 1. Wound ulceration to right great toe, secondary to insulin-dependent type 2 diabetes with polyneuropathy, with decreased blood pressure from baseline, with a history of osteomyelitis of right 2nd metatarsal joint resulting in amputation, acute on chronic, present on admission, nonpurulent -rule out osteomyelitis, gas gangrene necrotizing fasciitis. Staph, MRSA, sepsis, septic shock, ELINOR, -patient presented with red streaking up leg and with progressive worsening clinical findings and signs/symptoms. -blood & wound cultures pending -ESR:37 and CRP:8.1 are elevated -suspicion is high for osteomyelitis ordered: MRI with & without contrast Tomorrow -elevate affected leg, ice as tolerated, manage pain. -lower leg ultrasound in the ED negative for DVT-may consider CT with contrast to rule out abscess or deep infection. -monitor for hyponatremia elevated CPK &/or AST -wells criteria score: 4.5 , Sofa score: 0 -patient for observation, vital signs q.4 hours, intake and output monitored Q shift, weight measure daily. -diet: NPO for possible surgery tomorrow -monitor for SBP<100, MAP <65, urine output <65 cc/hr -IV fluids: 1L Bolus NS x2 ordered: BP 119/67, HR 98, R 18, O2 saturation 96% on room air. It should be noted after reviewing patient's vital signs in the chart in 2019 on last admit systolic blood pressures ran between 135-160 predominantly staying in the 150-160 range. Suggesting that patient's blood pressure today is likely reflecting the development of early sepsis possibly resulting from osteomyelitis. -vancomycin in the ED, ordered vancomycin per pharmacy (WBCs 16.8/neutrophils 12,800) -daily labs ordered CBC, CMP IN AM:PT/INR, Lactate -PT Evaluation -patient to be evaluated by Dr. Underwood in a.m. after consulting with Dr. Martinez podiatry-patient likely to go to surgery tomorrow for I&D -patient admitted under diabetic protocol, monitor for hyperglycemia, BS checks q.6 hours while NPO then ACHS -patient placed on low-dose sliding scale, A1c ordered -holding patient's NPH, and metformin while NPO 2. Mild hyponatremia, acute, present on admission -as evidence by sodium 125-1 L bolus NS x3 -Monitor for fluid overload-Lungs/edema/SOB. -monitor for worsening hyponatremia-signs & symptoms 3. Hypothyroidism, surgical secondary to thyroidectomy, chronic, present on admission -TSH ordered in a.m. -continue patient's levothyroxine 4. Hypertension, essential, chronic, present on admission -due to patient's decreased blood pressure and concern for sepsis will hold lisinopril at this time. 5. Hyperlipidemia secondary to diabetes, chronic, present on admission -Continue patient's Lipitor 6. GERD with Ralph's esophagus, chronic, present on admission, stability unknown -patient placed on IV Protonix x2 days while NPO, will continue patient's omeprazole postoperatively 7. Sleep apnea, chronic CPAP use, chronic, present on admission -ordered respiratory consult for possible CPAP evaluation 8. Obesity as evidence by BMI 39.7, acute on chronic, present on admission -consideration will be given to dietary counseling. Code status: Full code COVID PCR: Negative COVID vaccination: Dipesh & Dipesh May 2020 Designated surrogate decision maker: Sherice Mendez () DVT/VTE prophylaxis: Medication held for surgery, SCDs(on Left ONLY) Estimated length of stay: Less than 2 midnights Scores GCS [place] coma scale eye opening: Spontaneous Liya coma scale verbal response: Orientated Liya coma scale motor response: Obey commands [place] coma scale total score: 15 SOFA PaO2/FIO2: >=400 mmHg Platelets: >= 150 Bilirubin: < 1.2 mg/dL Hypotension: MAP >= 70 mmHg Liya Coma Scale: 15 Renal: < 1.2 mg/dL SOFA Score: 0 Wells' Criteria for PE Clinical signs and symptoms of DVT: Yes PE is #1 Dx or equally likely: No Heart rate > 100: No Immobilization at least 3 days or surg in previous 4 weeks: Yes History of PE or DVT: No Hemoptysis: No Malignancy w/Treatment within 6 months or palliative: No Wells' PE Score total: 4.5 Quality MIPS - Admit I confirm the patient?s Advance Care Plan is present, Code status is documented, Surrogate decision maker is in patient?s record [If Yes, STOP here]: Yes
[2020-10-09 02:04] LABS: Hemoglobin A1C% w Est Avg Glu 6.5 % (4.0-6.0)
[2020-10-09] MEDS: SODIUM CHLORIDE 0.9% 1,000 ML 1000 ML IV (02:10)
[2020-10-09] MEDS: SODIUM CHLORIDE 0.9% 1,000 ML 125 ML IV ×2 (03:26→13:17)
[2020-10-09 06:36] LABS: Add Manual Diff / Slide Review NO; Basophils Absolute Auto 100 /uL (0-100); Eosinophils Absolute Auto 200 /uL (0-450); Eosinophils Percent Auto 1.6 % (2-4); Hematocrit 36.7 % (41-53); Hemoglobin 12.2 g/dL (13.5-17.5); Lymphocytes Absolute Auto 1900 /uL (1100-4500); Lymphocytes Percent Auto 15.4 % (25-40); Mean Corpuscular HGB Conc 33.3 % (30-36); Mean Corpuscular Hemoglobin 28.8 PG (26-34); Mean Corpuscular Volume 86.7 fL (80-100); Monocytes Absolute Auto 1100 /uL (0-900); Monocytes Percent Auto 8.8 % (3-14); Neutrophils Absolute Auto 9000 /uL (1500-7000); Neutrophils Percent Auto 73.2 % (50-75); Platelet Count 260 X10^3/uL (150-400); Red Blood Cell Count 4.24 X10^6/uL (4.5-5.9); Red Cell Distribution Width 13.9 % (11.6-14.8); White Blood Cell Count 12.3 X10^3/uL (4.5-11.0)
[2020-10-09] MEDS: INSULIN LISPRO 100 UNIT/ML 3ML VIAL SUBCUT ×4 (06:39→20:23)
[2020-10-09 06:40] LABS: INR 1.1 (0.9-1.3); Prothrombin Time 12.6 SECONDS (10.1-12.7)
[2020-10-09 06:44] LABS: Lactate (Lactic Acid) 0.7 mmol/L (0.7-2.1)
[2020-10-09 06:46] LABS: Alanine Aminotransferase 16 IU/L (<50); Albumin 3.6 g/dL (3.5-5.0); Albumin Globulin Ratio 1.1 (1.0-2.8); Alkaline Phosphatase 88 U/L (38-126); Aspartate Aminotransferase 21 IU/L (17-59); Bilirubin Total 0.9 mg/dL (0.2-1.3); Blood Urea Nitrogen 23 mg/dL (9-20); Calcium 8.9 mg/dL (8.4-10.2); Carbon Dioxide 23 mmol/L (22-32); Chloride 95 mmol/L (98-107); Estimated Glomerular Filt Rate > 60.0 mL/min (>60); Globulin 3.4 g/dL (1.7-4.1); Glucose 148 mg/dL (80-110); HEMOLYSIS < 15 (0-50); Potassium 4.6 mmol/L (3.4-5.1); Sodium 126 mmol/L (137-145)
--- NOTE | 2020-10-09 07:06 | P.CONS_ITS ---
History of Present Illness Consult details Date Patient Seen: 10/09/20 Time Patient Seen: 07:07 Chief complaint: Right great toe ulcer with infection, diabetes Reason for consult: Possible need for surgical intervention diabetic foot ulcer Requesting provider: Seb Gonzales Narrative: Hunter is a 70-year-old diabetic male on long-term insulin most recent hemoglobin A1c last week 6.3 previously in the high 5s. He is a diabetic neuropathic and has multiple toe diabetic infection in. He is primarily cared for regarding his feet with Dr. Martinez supervisor intermediates at [facility]. He previously had a right 2nd toe amputation with her last year for infection. He has had a callus along the medial aspect of his great toe for a while now and had some paring of this about a month ago. 3-4 days ago he noticed that the area split open and had increasing redness over the last 2 days. He was seen in clinic by Dr. Martinez yesterday noted to have cellulitis at the ulcer site as well as streaking up the medial tibia. He was sent to the emergency room for evaluation likely IV antibiotics. X-rays were taken in the office yesterday do not show any obvious bony destruction. In the emergency room white count was 17 and CRP was 8.1. He was started on vancomycin wound cultures and blood cultures were taken. Wound culture demonstrated Gram- positive cocci. Was admitted to the hospitalist service. Overnight they have noted improvement in his cellulitis demarcation. White count this morning is 12 . He remains afebrile. His is a former nurse an occupational therapist. Meds Home Medications and Allergies Home Medications Medication Instructions Recorded Confirmed Type insulin human U-100 NPH-regulr 20 unit SUBCUT BID 06/02/18 10/09/20 History 70-30 mix 100 unit/mL subcutaneous susp (Novolin 70/30 U-100 Insulin) levothyroxine 25 mcg capsule 25 mcg PO DAILY 06/02/18 10/09/20 History metformin 500 mg tablet 500 mg PO BID 06/02/18 10/09/20 History omeprazole 20 mg tablet,delayed 20 mg PO DAILY 06/02/18 10/09/20 History release Respironics Dreamstation CPAP #1 ea 10/09/18 10/09/20 History atorvastatin 20 mg tablet 20 mg PO DAILY 02/06/20 10/09/20 History lisinopril 20 mg tablet 20 mg PO DAILY 02/06/20 10/09/20 History Allergies Allergy/AdvReac Type Severity Reaction Status Date / Time No Known Drug Allergies Allergy Verified 02/06/20 06:47 Review of Systems Review of Systems Narrative: Positive for high blood pressure. Diabetes and neuropathy. Denies current fevers chills nausea or vomiting. Endorses swelling and redness of the great toe. Exam Vital Signs (past 8 hours): - 10/08/20 23:30 10/09/20 00:00 10/09/20 00:30 Temperature Pulse Rate 89 95 H 94 H Respiratory Rate Blood Pressure 100/53 L 118/71 129/59 L Pulse Oximetry 93 97 94 10/09/20 01:00 10/09/20 01:20 10/09/20 03:52 Temperature 97.7 F Pulse Rate 93 H 82 91 H Respiratory Rate 18 17 Blood Pressure 127/58 L 122/78 Pulse Oximetry 95 97 96 10/09/20 04:19 10/09/20 06:20 Temperature 97.9 F Pulse Rate 89 Respiratory Rate 18 Blood Pressure 145/85 H Pulse Oximetry 95 95 Oxygen Delivery Method Room Air Oxygen Flow Rate 0 Narrative Exam Narrative: Alert oriented male lying in bed. HEENT normocephalic atraum atic Respiratory unlabored on room air Heart regular rate and rhythm No acute distress Moving bilateral upper and lower extremities without limitation. Right lower extremity demonstrates great toe a medial callus with central ulceration at the medial distal phalanx. There is no exposed bone. . The central as soft ulceration. No purulence drainage. There are small but 1 cm bulla the plantar aspect of the distal phalanx pulp. This is drain today thin cloudy fluid. No deeper abscess apparent. Arthritic flexed and hallux valgus interphalangeus deformity of the great toe. Previous 2nd toe amputation site well healed. There are lesser hammertoes. Palpable dorsalis pedis pulse. There is stocking-glove neuropathy. Faint erythematous streaking along the medial tibia with in the demarcation sites. There is also a demarcation along the dorsum of the foot where the erythema extended off the great toe yesterday erythema has receded within this adjust to the great toe. There is no fluc tuance with the exception of a small bulla. There is some red flags from the contralateral sock over the medial ulceration. This was sterilized and then pared down again using a blade to clean up the area revealing the callus with central ulceration. No obvious bone involvement.. Demonstrates active dorsiflexion and plantar flexion. Objective Imaging Right toes x-ray: My impression: Right toes x-ray AP oblique and lateral from [facility] office on 10/08/2000 demonstrates the previous 2nd toe amputation through the metatarsophalangeal joint. There are degenerative changes throughout the toes and midfoot. There is a hallux valgus interphalangeus deformity of the right great toe with soft tissue irregularity along the medial aspect of the distal phalanx consistent with the location of the callus and ulcer. There is no clear osteolysis. There hammertoe deformities and interdigital and midfoot degenerative changes. Labs Result Diagrams: 10/09/20 06:03 10/09/20 06:03 Labs: Laboratory Results - last 24 hr 10/08/20 10/08/20 10/08/20 18:58 18:58 18:58 WBC 16.8 H RBC 4.32 L Hgb 12.5 L Hct 37.5 L MCV 86.7 MCH 28.9 MCHC 33.3 RDW 14.1 Plt Count 248 Neut % (Auto) 76.0 H Lymph % (Auto) 15.7 L [place] % (Auto) 6.4 Eos % (Auto) 0.6 L Baso % (Auto) 1.3 Neut # (Auto) 85290 H Lymph # (Auto) 2600 [place] # (Auto) 1100 H Eos # (Auto) 100 Baso # (Auto) 200 H ESR PT INR Sodium 125 L Potassium 4.7 Chloride 91 L Carbon Dioxide 20 L BUN 18 Creatinine 1.09 Estimated GFR > 60.0 BUN/Creatinine Ratio 16.5 Glucose 125 H Hemoglobin A1c Lactate 1.8 Calcium 9.2 Magnesium Total Bilirubin 0.8 AST 25 ALT 19 Alkaline Phosphatase 89 C-Reactive Protein Total Protein 7.6 Albumin 4.2 Globulin 3.4 Albumin/Globulin Ratio 1.2 Lipase 80 Procalcitonin 0.08 SARS-CoV-2 (PCR) 10/08/20 10/08/20 10/08/20 18:58 18:58 18:58 WBC RBC Hgb Hct MCV MCH MCHC RDW Plt Count Neut % (Auto) Lymph % (Auto) [place] % (Auto) Eos % (Auto) Baso % (Auto) Neut # (Auto) Lymph # (Auto) [place] # (Auto) Eos # (Auto) Baso # (Auto) ESR 37 H PT INR Sodium Potassium Chloride Carbon Dioxide BUN Creatinine Estimated GFR BUN/Creatinine Ratio Glucose Hemoglobin A1c Lactate Calcium Magnesium 1.7 Total Bilirubin AST ALT Alkaline Phosphatase C-Reactive Protein 8.1 H Total Protein Albumin Globulin Albumin/Globulin Ratio Lipase Procalcitonin SARS-CoV-2 (PCR) 10/08/20 10/08/20 10/09/20 18:58 21:45 06:03 WBC 12.3 H RBC 4.24 L Hgb 12.2 L Hct 36.7 L MCV 86.7 MCH 28.8 MCHC 33.3 RDW 13.9 Plt Count 260 Neut % (Auto) 73.2 Lymph % (Auto) 15.4 L [place] % (Auto) 8.8 Eos % (Auto) 1.6 L Baso % (Auto) 1.0 Neut # (Auto) 9000 H Lymph # (Auto) 1900 [place] # (Auto) 1100 H Eos # (Auto) 200 Baso # (Auto) 100 ESR PT INR Sodium Potassium Chloride Carbon Dioxide BUN Creatinine Estimated GFR BUN/Creatinine Ratio Glucose Hemoglobin A1c 6.5 H Lactate Calcium Magnesium Total Bilirubin AST ALT Alkaline Phosphatase C-Reactive Protein Total Protein Albumin Globulin Albumin/Globulin Ratio Lipase Procalcitonin SARS-CoV-2 (PCR) Negative 10/09/20 10/09/20 10/09/20 06:03 06:03 06:03 WBC RBC Hgb Hct MCV MCH MCHC RDW Plt Count Neut % (Auto) Lymph % (Auto) [place] % (Auto) Eos % (Auto) Baso % (Auto) Neut # (Auto) Lymph # (Auto) [place] # (Auto) Eos # (Auto) Baso # (Auto) ESR PT 12.6 INR 1.1 Sodium 126 L Potassium 4.6 Chloride 95 L Carbon Dioxide 23 BUN 23 H Creatinine 0.96 Estimated GFR > 60.0 BUN/Creatinine Ratio 24.0 H Glucose 148 H Hemoglobin A1c Lactate 0.7 Calcium 8.9 Magnesium Total Bilirubin 0.9 AST 21 ALT 16 Alkaline Phosphatase 88 C-Reactive Protein Total Protein 7.0 Albumin 3.6 Globulin 3.4 Albumin/Globulin Ratio 1.1 Lipase Procalcitonin SARS-CoV-2 (PCR) Assessment & Plan Assessment and plan (1) Diabetic foot ulcer associated with diabetes mellitus due to underlying condition: Status: Acute Assessment & Plan narrative: Patient has a right diabetic foot ulcer distal phalanx medial sign. This was a callus with a central ulceration. There is exposed fat layer. There was no clear underlying bone involvement. Will get MRI with and without contrast today to assess for osteomyelitis as this can help us determine duration of antibiotics. I do not see any clear abscess or indication for surgical debridement at this time but the MRI will be helpful in that. Patient may eat breakfast today will get MRI throughout the day and would not have any surgical intervention prior to 530 or 6:00 p.m. some making him NPO after breakfast would be appropriate. Based on the appearance of the MRI and his response to IV antibiotics throughout the day would consider debridement versus observation and IV antibiotic treatment until the cultures are returned then these antibiotics can be narrowed and at outpatient therapy initiated. The patient understands and agrees with the plan. Time Spent With Patient Time with patient: 15-24 minutes
[2020-10-09] MEDS: LEVOTHYROXINE 25 MCG TABLET PO (07:07)
[2020-10-09 07:15] LABS: TSH w/ Reflex to FT4 3.56 uIU/mL (0.47-4.68)
--- NOTE | 2020-10-09 07:20 | PM.PROC.1 ---
Procedures Date/Time Date of procedure: 10/09/20 Time of procedure: 07:20 General Procedure description: Excisional debridement/callus paring right great toe diabetic ulcer x 1. Area was prepped with chlorhexidine. Consent was obtained. A 15 blade was used to Pare down surrounding callus remove callus and expose central area of ulceration. No purulence was noted. A separate superficial bulla plantar distal phalanx right great toe was drained. Xeroform dressing was placed followed by gauze and Cintia wrap. Patient tolerated procedure well. Complications: none
[2020-10-09] MEDS: ATORVASTATIN 20 MG TABLET PO (08:39)
[2020-10-09] MEDS: PANTOPRAZOLE 40 MG VIAL 20 MG IV (08:39)
[2020-10-09] MEDS: VANCOMYCIN 1,250 MG/250 ML PIGGYBACK 250 MG IV ×2 (08:39→20:22)
--- NOTE | 2020-10-09 10:06 | PC.NURSE ---
Patient off unit for MRI. Wrist watch removed and left in room. Patient saline locked for transfer. RLE remains dressed with gauze, CDI, patient denies pain.
--- NOTE | 2020-10-09 11:48 | CM.DANOTE ---
Discharge Planning/Care Management DCP: assessment: case received, EMR reviewed and met with pt. Intoduced self and role. Pt is a 70 year old male who admitted early this morning after many hours in the ER to care of hospitalist team. Consulting: Dr. Yajaira Brown PCP: Dr. Jennifer Jones Signal Operator Technical: Dr. Martinez Payer: [facility] Pt is admitted for R great toe ulcer infection. He is a long time Insulin dependent diabetic and with severe neuropathy in his feet. He confirms that Dr. Brown was at beside early this morning to examine the area and did some debridement. MRI is next for today and then he says Dr. Brown will decide from their the POC. He states amputation of the toe is being considered. Pt does confirm that he has a history of osteomylitis in another toe in 2019 which resulted in an amputation. He says he has never needed IV antibiotics in any setting but the hospital. P: POC remains in process. Pt says he is well supported by his who has worked in the past as an RN and OT. She is not currently working. DCP team will be following. CM Discharge Assessment Start: 10/09/20 11:45 Freq: Status: Active Protocol: Document 10/09/20 11:46 ITV (Rec: 10/09/20 11:47 ITV [id number]) Discharge Planning Assessment Advance Directives? No History Provided By Patient,Medical Record Prior Living Arrangements Apartment/Condo Household Members spouse Independent with ADL's Yes Is patient alert and oriented? Yes Review Status In Process
--- NOTE | 2020-10-09 13:47 | PT-IP ANOTE ---
per Dr. Ac during rounds: PT eval on hold pending MRI result to determine if pt is needing surgery. will f/u.
--- NOTE | 2020-10-09 18:18 | PM.CALLCOV.1 ---
Call Coverage Note Note Narrative of Care Provided: 70-year-old male admitted to the hospital for right lower extremity cellulitis, MRI showed no evidence of osteomyelitis. The erythema of the right lower extremity improving. Anticipate no surgical intervention at this time. Will continue IV antibiotics with anticipation of switching to oral within 1-2 days.
[2020-10-09] MEDS: SENNOSIDES 8.6 MG TABLET 17.2 MG PO (20:22)
[2020-10-10] VITALS (9 sets, daily range): BP systolic 141–161; BP diastolic 73–89; PULSE 17–78; RESP 16–20; TEMP 36.1–36.4; O2SAT 96–99
[2020-10-10] MEDS: LEVOTHYROXINE 25 MCG TABLET PO (06:00)
[2020-10-10] MEDS: INSULIN LISPRO 100 UNIT/ML 3ML VIAL SUBCUT ×3 (09:44→16:45)
[2020-10-10] MEDS: SODIUM CHLORIDE 0.9% FLUSH 10 ML IV ×2 (09:45→21:41)
[2020-10-10] MEDS: VANCOMYCIN 1,250 MG/250 ML PIGGYBACK 250 MG IV ×2 (09:45→21:41)
[2020-10-10] MEDS: PANTOPRAZOLE 40 MG VIAL 20 MG IV (09:45)
[2020-10-10] MEDS: ATORVASTATIN 20 MG TABLET PO (09:48)
--- NOTE | 2020-10-10 10:28 | PT.IIE ---
Current Diagnoses Diabetes mellitus due to underlying condition with foot ulcer (10/09/20) Non-pressure chronic ulcer of other part of unspecified foot with unspecified severity (10/09/20) Surgical History (Last Reviewed 10/09/20 @ 07:11 by Johana Brown MD) Amputated toe of right foot Medical History (Last Reviewed 10/09/20 @ 07:11 by Johana Brown MD) Acquired hypothyroidism Allergic rhinosinusitis Diverticulosis Excessive daytime sleepiness GERD (gastroesophageal reflux disease) History of alcohol dependence History of alcoholic hepatitis History of thyrotoxicosis (~1970) Hypertension Insomnia due to medical condition Nocturnal hypoxemia Obesity (BMI 30-39.9) Obstructive sleep apnea, adult Snoring Type 2 diabetes mellitus without complications Physical Therapy Inpatient Evaluation/Re-Eval M1 PT/OT-IP Prior Functional Status Start: 10/10/20 13:56 Freq: NEEDED Status: Active Protocol: Document 10/10/20 10:28 AB (Rec: 10/10/20 14:10 AB [email or web address]) Medical Review Prior Functional Status Medical History Reviewed Yes Communication able to make needs known Mobility and Gait pt stated that he is independent with all mobilities and ambulation without AD Social History Household Members spouse Living Arrangements Apartment/Condo Number of Floors (Floors) One Floor Number of Stairs To Enter/Railing? 2nd level condo with an elevator to enter Home Environment Standard Height Toilet,Tub/ Shower,Elevator Home Equipment Front Wheel Walker,Four Wheel Walker,Straight Cane,Manual Wheelchair,Tub Transfer Bench, Hand Held Shower,Grab Bars Near Toilet,Grab Bars In Shower Employment Status [employer] Employed Additional Social History Comment pt stated that spouse is a retired nurse/OT pt stated that he works once a week at a [employer]. M2 PT-IP Current Condition Start: 10/10/20 13:56 Freq: NEEDED Status: Active Protocol: Document 10/10/20 10:28 AB (Rec: 10/10/20 14:10 AB [email or web address]) Physical Therapy Current Condition Current Condition Evaluation Date 10/10/20 Treatment Diagnosis R great toe ulcer; difficulty in walking Onset Date 10/09/20 M3 PT-IP Subjective Start: 10/10/20 13:56 Freq: NEEDED Status: Active Protocol: Document 10/10/20 10:28 AB (Rec: 10/10/20 14:10 [email or web address]) Subjective Physical Therapy Visit Type Type Initial Evaluation Visit Start Time 10:28 Visit Stop Time 10:51 Total Visit Minutes 23 Notes Pt was on hold for PT eval yesterday pending MRI result. MRI result is unremarkable for osteomyelitis. Doctor cleared pt for PT eval. Number of DECOMMISSIONING WELL SITE MANAGER Visits 0 Physical Therapy Visit Comments Patient Comments pt agreed to do PT Therapy Pain Assessment Pain Present Pain Present Denied Pain M4 PT-IP Mobility and Gait Start: 10/10/20 13:56 Freq: NEEDED Status: Active Protocol: Document 10/10/20 10:28 AB (Rec: 10/10/20 14:10 [email or web address]) PT-Bed Mobility Assessment Supine to Sit Supine to Sit Standby Assistance Sit to Supine Sit to Supine Standby Assistance PT-Transfer Assessment Sit to and From Stand Sit to and from Stand Independent Equipment Transfer Assistive Device None,Gait Belt Orthotic/Prosthetic Devices or Brace: No Comments Mobility Comments pt supine in bed. demonstrated supine to sit SBA with increase time needed to complete task. assisted pt with donning of diabetic shoes . pt stated that he has a long handled shoe horn at home that he uses to put his shoes on. pt completed sit to stand independent and ambulated in room without AD mod I ~ 50 ft. presents with antalgic gait with increase lateral trunk lurching towards the R but without LOB. pt stated that he has been ambulating to the toilet by himself without difficulty. pt requested to go back to bed and completed sit to supine SBA. positioned in bed. call light and table placed within reach. pt is at OF and informed pt that no further PT intervention needed at this time and pt agreed. informed nurse. Gait Assessment Gait Gait Assistance Required: Independent Distance (Feet) 50 Able to Maintain Weight Bearing Status Yes During Gait Assistive Devices Assistive Device None,Gait Belt Orthotic/Prosthetic Devices or Brace: No Gait Deviations General Gait Pattern Antalgic,Wide Based Gait Factors Limiting Gait Function Factors Limiting Gait Function Decreased Activity Tolerance PT-Balance Assessment Sitting Balance and Reactions Static Sitting Balance Ability Normal Dynamic Sitting Balance Ability Normal Standing Balance and Reactions Static Standing Balance Ability Good Dynamic Standing Balance Ability Good Device Used without AD M5 PT-IP Objective Assessments Start: 10/10/20 13:56 Freq: NEEDED Status: Active Protocol: Document 10/10/20 10:28 AB (Rec: 10/10/20 14:10 AB [id number]) Orientation Orientation/Cognition Level of Alertness Alert Orientation Name,Age,Birthday,Month,Date, Year,Day of Week,Place, Situation Language Function Ability No Deficits Noted Safety Awareness Understands Safety Issues Memory Description No Deficits Noted Gross Range of Motion Lower Extremity ROM Assessment Within Functional Limits Strength Lower Extremity Strength Assessment Within Functional Limits Coordination Assessment Gross Coordination Gross Coordination WNL Sensation Assessment Sensation Gross Sensation Right LE Impaired,Left LE Impaired Light Touch Impaired Proprioception (Position) Impaired Sensation Description Numbness Comments Sensation Comments stated that he can feel light touch but not pain and that he has to look down on his feet during ambulation for balance Muscle Tone Muscle Tone WNL Yes M6 PT-IP Treatment Start: 10/10/20 13:56 Freq: NEEDED Status: Active Protocol: Document 10/10/20 10:28 AB (Rec: 10/10/20 14:10 AB [email or web address]) Physical Therapy Treatment Education Education Provided Safety M7 PT-IP Assessment and Plan Start: 10/10/20 13:56 Freq: NEEDED Status: Active Protocol: Document 10/10/20 10:28 AB (Rec: 10/10/20 14:10 AB [email or web address]) PT Summary Assessment and Plan Potential Rehabilitation Potential Good Status of Condition at Evaluation Stable Summary Impairments Pain,ROM,Strength,Balance, Coordination,Sensation,Tone, Cognition,Bed Mobility, Transfers,Gait,Activity Tolerance Progress Towards Goals Safe For Discharge Assessment Summary PT eval completed. no further PT intervention indicated at this time. Pt is at [facility] and will have his spouse to assist him as needed. Frequency of Treatment Frequency Of Treatment Discharge Recommendations To Nursing Amount of Assist Needed Standby Assistance Discharge Recommendations PT Discharge Recommendations Home Transportation Needs at Discharge Private Vehicle
--- NOTE | 2020-10-10 10:28 | PC.NURSE ---
Patient resting in bed this AM. RLE elevated. Dressing intact with minimal shadow drainage. Patient denies pain, endorses lack of sensation bilaterally, CMS intact, minimal erythema noted. Patient saline locked except for intermittent abx. Tolerating. Refuses LLE SCD, would like to ambulate independently. Patient instructed to call before getting OOB if he feels dizzy or lightheaded. Patient verbalizes understanding. Patient denies difficulty with urination, reports last BM was 10/09, BS active x 4. Patient denies further needs at this time. Call light in reach.
[2020-10-10 11:20] LABS: Add Manual Diff / Slide Review NO; Basophils Absolute Auto 100 /uL (0-100); Basophils Percent Auto 1.3 % (0-2); Eosinophils Absolute Auto 300 /uL (0-450); Eosinophils Percent Auto 2.3 % (2-4); Hematocrit 36.3 % (41-53); Hemoglobin 11.9 g/dL (13.5-17.5); Lymphocytes Absolute Auto 2200 /uL (1100-4500); Lymphocytes Percent Auto 18.6 % (25-40); Mean Corpuscular HGB Conc 32.9 % (30-36); Mean Corpuscular Hemoglobin 28.6 PG (26-34); Mean Corpuscular Volume 86.8 fL (80-100); Monocytes Absolute Auto 900 /uL (0-900); Monocytes Percent Auto 7.4 % (3-14); Neutrophils Absolute Auto 8200 /uL (1500-7000); Neutrophils Percent Auto 70.4 % (50-75); Platelet Count 294 X10^3/uL (150-400); Red Blood Cell Count 4.18 X10^6/uL (4.5-5.9); White Blood Cell Count 11.7 X10^3/uL (4.5-11.0)
--- NOTE | 2020-10-10 11:21 | CM.DPNOTE ---
DCP: continued: case discussed in Team Rounds with Dr. Ac. She stated that culture/sensitivities are still pending and should know what antibiotic will be needed for d/c on Tuesday/10/11 (expected to be oral). Pt today is up independently in his room per his request and RN ok. P: remains home with when stable for same.
[2020-10-10 11:26] LABS: BUN Creatinine Ratio 20.9 (6-22); Blood Urea Nitrogen 18 mg/dL (9-20); Calcium 9.3 mg/dL (8.4-10.2); Carbon Dioxide 23 mmol/L (22-32); Chloride 99 mmol/L (98-107); Estimated Glomerular Filt Rate > 60.0 mL/min (>60); Glucose 194 mg/dL (80-110); HEMOLYSIS < 15 (0-50); Potassium 4.6 mmol/L (3.4-5.1); Sodium 130 mmol/L (137-145)
--- NOTE | 2020-10-10 12:14 | P.PN_ITS ---
Subjective Subjective Date Patient Seen: 10/10/20 Time Patient Seen: 12:16 Interval history: Hospital day 2 or diabetic great toe infection, ulcer right foot and cellulitis. Cellulitic Demarcation on the skin have improved considerably on the IV antibiotics. Pain is controlled. No fevers or chills. No pain. Exam Vital Signs (past 8 hours): - 10/10/20 05:45 10/10/20 09:00 Temperature 96.9 F L 97.2 F L Pulse Rate 71 69 Respiratory Rate 20 18 Blood Pressure 152/81 H 142/87 H Pulse Oximetry 99 98 Oxygen Delivery Method Room Air Oxygen Flow Rate 0 Narrative Exam Narrative: Alert oriented male no acute distress lying in bed. HEENT exam normocephalic atraumatic. Musculoskeletal examination demonstrates right foot with up status post 2nd toe amputation. Great toe with erythema to the MTP joint. Previous marked outlined over the dorsum of the foot are resolved. There is still some faint erythema the medial tibia but within margin lines. There is a medial distal phalanx soft tissue ulcer. No drainage no malodor. Thick callused tissue. Brisk capillary refill. Neuropathy. Objective Labs Result Diagrams: 10/10/20 11:05 10/10/20 11:05 Labs: Laboratory Results - last 24 hr 10/10/20 10/10/20 11:05 11:05 WBC 11.7 H RBC 4.18 L Hgb 11.9 L Hct 36.3 L MCV 86.8 MCH 28.6 MCHC 32.9 RDW 14.0 Plt Count 294 Neut % (Auto) 70.4 Lymph % (Auto) 18.6 L [place] % (Auto) 7.4 Eos % (Auto) 2.3 Baso % (Auto) 1.3 Neut # (Auto) 8200 H Lymph # (Auto) 2200 [place] # (Auto) 900 Eos # (Auto) 300 Baso # (Auto) 100 Sodium 130 L Potassium 4.6 Chloride 99 Carbon Dioxide 23 BUN 18 Creatinine 0.86 Estimated GFR > 60.0 BUN/Creatinine Ratio 20.9 Glucose 194 H Calcium 9.3 PFSH Medical History Acquired hypothyroidism Allergic rhinosinusitis Diverticulosis Excessive daytime sleepiness GERD (gastroesophageal reflux disease) History of alcohol dependence History of alcoholic hepatitis History of thyrotoxicosis (~1971) Hypertension Insomnia due to medical condition Nocturnal hypoxemia Obesity (BMI 30-39.9) Obstructive sleep apnea, adult Snoring Type 2 diabetes mellitus without complications Surgical History Amputated toe of right foot H/O partial thyroidectomy History of bowel resection Family History Other Diabetes mellitus Family history of bowel cancer Social History marital status: household members: spouse Smoking Status: Former smoker alcohol intake: current Assessment & Plan Assessment and plan (1) Diabetic foot ulcer associated with diabetes mellitus due to underlying condition: Status: Acute Assessment & Plan narrative: Right foot great toe diabetic ulcer soft tissue involvement no evidence of osteomyelitis on MRI Recommend continue IV antibiotics until species and sensitivities come back. Appears to be Staph on culture. But not yet final. Appearance is improving. May require a couple more days of IV but if there is an available oral antibiotics once cultures are final can consider transition to oral antibiotics which should continue 2-4 weeks. Alternative would be PICC line and home infusions IV antibiotics for the same duration. If the patient is discharged he does have a appointment scheduled with Dr. Martinez on Tuesday--but if he is still inpatient this can be rescheduled. Encourage consultation and establishing care with [facility] [place] care COVID-19 COVID-19 status: Negative Time Spent With Patient Time with patient: less than 15 minutes Quality VTE Deep Vein Thrombosis/Pulmonary Embolism Present on Admission: No
[2020-10-10] MEDS: ENOXAPARIN 40 MG/0.4 ML SYRINGE SUBCUT (15:32)
--- NOTE | 2020-10-10 17:11 | P.PN_ITS ---
Subjective Subjective Interval history: 70-year-old male with type 2 diabetes admitted to the hospital for cellulitis of the right lower extremity. Patient reports diarrhea, this started with antibiotic therapy Exam Vital Signs (past 8 hours): - 10/10/20 12:56 10/10/20 14:00 10/10/20 15:44 Temperature 97 F L 97.6 F Pulse Rate 68 75 Respiratory Rate 18 18 Blood Pressure 148/88 H 161/73 H Pulse Oximetry 96 98 98 Oxygen Delivery Method Room Air Oxygen Flow Rate 0 Narrative Exam Narrative: Pleasant gentleman in no acute distress Resp Other: Lungs clear to auscultation Cardio Other: Cardiac exam: Regular rate and rhythm normal S1-S2 GI Other: Abdomen obese soft nontender nondistended Extrem Other: Extremity right foot, great toe with incision no erythema, the right leg shows decreasing erythema, decreasing edema, there is no warmth, or streaking. There is overall improvement of the cellulitis of the right lower extremity Objective Labs Result Diagrams: 10/10/20 11:05 10/10/20 11:05 Labs: Laboratory Results - last 24 hr 10/10/20 10/10/20 11:05 11:05 WBC 11.7 H RBC 4.18 L Hgb 11.9 L Hct 36.3 L MCV 86.8 MCH 28.6 MCHC 32.9 RDW 14.0 Plt Count 294 Neut % (Auto) 70.4 Lymph % (Auto) 18.6 L [place] % (Auto) 7.4 Eos % (Auto) 2.3 Baso % (Auto) 1.3 Neut # (Auto) 8200 H Lymph # (Auto) 2200 [place] # (Auto) 900 Eos # (Auto) 300 Baso # (Auto) 100 Sodium 130 L Potassium 4.6 Chloride 99 Carbon Dioxide 23 BUN 18 Creatinine 0.86 Estimated GFR > 60.0 BUN/Creatinine Ratio 20.9 Glucose 194 H Calcium 9.3 PFSH Medical History Acquired hypothyroidism Allergic rhinosinusitis Diverticulosis Excessive daytime sleepiness GERD (gastroesophageal reflux disease) History of alcohol dependence History of alcoholic hepatitis History of thyrotoxicosis (~1970) Hypertension Insomnia due to medical condition Nocturnal hypoxemia Obesity (BMI 30-39.9) Obstructive sleep apnea, adult Snoring Type 2 diabetes mellitus without complications Surgical History Amputated toe of right foot H/O partial thyroidectomy History of bowel resection Family History Other Diabetes mellitus Family history of bowel cancer Social History marital status: household members: spouse Smoking Status: Former smoker alcohol intake: current Quality VTE Deep Vein Thrombosis/Pulmonary Embolism Present on Admission: No
--- NOTE | 2020-10-10 20:40 | PC.NURSE ---
Addendum entered by Shelby Brian R.N. 10/10/20 22:19: Vanco trough therapeutic. IV leaks with flush and was discontinued to right ac. New site established right hand and iv vancomycin infusing as ordered. Pt reports one loose stool this evening shift and several on dayshift and pt reports informed Dr. Ac during rounds. This singer songwriter offered pt yogurt, which pt declined. Explained rationale for eating probiotic when on antibiotics. Declines scd to left leg. Original Note: Pt in bed alert, awake, and conversant with staff. Is up ad farhad to bathroom. Admits to baseline neuropathy to feet BL. Denies pain. Gauze and kerlix dressing intact to right foot. Pt is s/p amputation single toe right foot in remote history. Capillary refill to right great toe is < 2 sec. Refuses scd to left leg per dayshift report. ANNMARIE Castillo in to see patient this evening shift.
[2020-10-10] MEDS: SODIUM CHLORIDE 0.9% 250 ML 21 ML IV (22:54)
[2020-10-11] VITALS (7 sets, daily range): BP systolic 150–160; BP diastolic 90–96; PULSE 66–70; RESP 16–18; TEMP 35.9–36.7; O2SAT 96–98
[2020-10-11 01:50] LABS: Vancomycin Peak 19.9 ug/mL (20-40)
[2020-10-11] MEDS: LEVOTHYROXINE 25 MCG TABLET PO (05:59)
[2020-10-11] MEDS: PANTOPRAZOLE DR 20 MG TABLET PO (05:59)
--- NOTE | 2020-10-11 08:11 | PC.NURSE ---
Addendum entered by Donna Velasquez R.N. 10/11/20 13:46: Patient given discharge instructions regarding medication, f/u appointment, wound care referral and s/s of worsening condition. Patient verbalized understanding. IV removed. Patient tolerated. ABX script given to patient. Patient is awaiting ride. Will continue to monitor. Addendum entered by Donna Velasquez R.N. 10/11/20 13:08: Re wrapped R great toe, pharmacy notified patient will be discharged and would like education regarding new PO ABX. Patient eating lunch, denies further needs at this time. Original Note: Patient resting in bed with RLE elevated. Denies pain. Wound on great toe minimally wrapped with wound SPECIAL SERVICE OFFICER for visualization per patient. LLE, non pitting edema, minimal erythema, decreasing from previous nursing assessment. Patient still having loose stools r/t abx. MD aware. Patient voiding. Lungs CTA. Pulses equal. Call light in reach. Patient denies needs at this time.
[2020-10-11] MEDS: INSULIN NPH/REG 70-30 100 UNIT/ML 3ML VIAL 20 UNIT SUBCUT (08:31)
[2020-10-11] MEDS: lisinopriL 20 MG TABLET PO (08:32)
[2020-10-11] MEDS: ATORVASTATIN 20 MG TABLET PO (08:32)
[2020-10-11] MEDS: ENOXAPARIN 40 MG/0.4 ML SYRINGE SUBCUT (08:33)
[2020-10-11] MEDS: SODIUM CHLORIDE 0.9% FLUSH 10 ML IV (08:33)
[2020-10-11] MEDS: VANCOMYCIN 1,250 MG/250 ML PIGGYBACK 250 MG IV (08:33)
--- NOTE | 2020-10-11 09:46 | P.DS_ITS ---
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 Patient states that this began 1 month ago with some mild redness at the base of the nail than approximately 4 days ago on Tuesday noted increased redness with splitting open of the ulceration to the medial side of the right great toe. He was seen by his order processing clerk Dr. Martinez yesterday for his Right great toe chronic wound infection/ulceration and dressing change,. Today he presented with new onset red streaking medial calf mid-shaft, worsening erythema/ inflammation and was sent to the ED by Dr. Martinez. Patient denies fever, body aches, chills, nausea, vomiting, dizziness, weakness, chest pain, or shortness of breath. Patient also denies hemataemesis, hematochezia, or hematuria. Patient has a history hypothyroidism, hyperlipidemia, insulin-dependent type 2 diabetes with polyneuropathy, essential hypertension, history of alcohol abuse, alcohol hepatitis, liver disease, diverticulosis with Ralph's esophagus, EVERT, and obesity. Patient's vitals upon admit were stable BP 119/67 common HR 98, R 18, O2 saturation 96% on room air. It should be noted after reviewing patient's vital signs in the chart in 2019 on last admit systolic blood pressures ran between 135-160 predominantly staying in the 150-160 range. Suggesting that patient's blood pressure today is likely reflecting the development of early sepsis possibly resulting from osteomyelitis. Patient's WBCs were elevated at 16.8 with a left shift neutrophils 12,800, ESR 37, CRP 8.1, lipase and procalcitonin were both unremarkable. HGB 12.5 HCT 37.5, hyponatremia mild at 1:25 a.m., chloride 91, HC03 of 20, and a glucose of 125. Patient's Sofa score: 1 upon admit. Vascular ultrasound leg and foot negative for DVT. Dr. Underwood orthopedic/ taking call for Dr. Martinez (order processing clerk) consulted on the case. Dr. Mcneil recommended patient be admitted for MRI with and without contrast of the right foot, NPO for possible surgical I&D tomorrow. Patient started on vancomycin per pharmacy in ED. Patient admitted for right foot great toe diabetic wound ulceration. Discharge Providers Provider Date of admission: 10/09/20 00:48 Discharge Date: 10/11/20 Primary care physician: Delfino Jones MD Consults: 10/09/20 01:08 Consult to Physical Therapy Evaluate & Treat Comment: right great toe wound-poss osteo Physician Instructions: Evaluate and Treat 10/09/20 02:42 Consult to Respiratory Therapy Evaluate & Treat Comment: Cpap EVERT Physician Instructions: Evaluate and treat Discharge provider: Bill Ariza MD Summary Hospital Course Discharge Diagnosis: 1. Diabetic infected R great toe with leg cellulitis 2. Mild hyponatremia 3. Hypothyroidism 4. Hypertension 5. Hyperlipidemia 6. Insulin dependent diabetes 7. GERD 8. Sleep apnea 9. Obesity, BMI 39 Hospital Course: Mr. Mendez was admitted with a wound on his right great toe. He initially had infection from that wound up his leg. He was started on IV antibiotics and he improved significantly. He still had some erythema primarily to the toe on day of discharge. He had no pain due to neuropathy. He had wound cultures that showed MSSA. He will be discharged on a prolonged course of keflex for the infection for a total course of 10 days. He already has an appointment with podiatry with Dr. Martinez early this week, who can extend antibiotics as cilnically indicated. MRI was negative for osteomyelitis. He declined wound clinic at this time. Exam Vital Signs (past 8 hours): Oxygen Delivery Method Room Air Oxygen Flow Rate 0 Narrative Exam Narrative: GEN: Pleasant gentleman in no acute distress Resp: Lungs clear to auscultation Cardio: Regular rate and rhythm with no murmurs GI: soft nontender nondistended Extrem: right foot, great toe with erythema, the right leg shows decreasing erythema, decreasing edema. There is overall improvement of the cellulitis of the right lower extremity Objective Labs Result Diagrams: 10/10/20 11:05 10/10/20 11:05 [facility] Medical History Acquired hypothyroidism Allergic rhinosinusitis Diverticulosis Excessive daytime sleepiness GERD (gastroesophageal reflux disease) History of alcohol dependence History of alcoholic hepatitis History of thyrotoxicosis (~1970) Hypertension Insomnia due to medical condition Nocturnal hypoxemia Obesity (BMI 30-39.9) Obstructive sleep apnea, adult Snoring Type 2 diabetes mellitus without complications Surgical History Amputated toe of right foot H/O partial thyroidectomy History of bowel resection Family History Other Diabetes mellitus Family history of bowel cancer Social History marital status: household members: spouse Smoking Status: Former smoker alcohol intake: current Discharge Plan Discharge Plan Patient Disposition: Home Health Service Provider Discharge Comment: Mr. Mendez came in with a foot infection (cellulitis). He did not have any evidence that the infection was in the bone. He did not need surgery. He will be sent home with an additional two weeks of antibiotics and he should follow closely with his primary doctor and order processing clerk to make sure he continues to improve. He has an appointment with Dr. Martinez this coming week and should keep it. He should follow up with [facility] as well. He will be sent with home health to help with wound care. Discharge orders & Medications Prescriptions: New cephalexin 500 mg capsule 500 mg PO QID Qty: 56 RF: 0 Continued atorvastatin 20 mg Tablet 20 mg PO DAILY RF: 0 lisinopril 20 mg Tablet 20 mg PO DAILY RF: 0 metformin 500 mg tablet 500 mg PO BID RF: 0 Novolin 70/30 U-100 Insulin 100 unit/mL (70-30) suspension 20 unit SUBCUT BID RF: 0 omeprazole 20 mg tablet,delayed release (DR/EC) 20 mg PO DAILY RF: 0 levothyroxine 25 mcg capsule 25 mcg PO DAILY RF: 0 No Action (DME) Respironics Dreamstation CPAP Qty: 1 RF: 0 Follow up/Referrals: Abbey Martinez DPM [Physician] - (toe infection, MRI negative for osteo, d/c with two weeks oral abx) Isidoro Galvin MD [Physician] - (diabetes, toe infection) Delfino Jones MD [Primary Care Provider] - Diet/Activity/Treatments Diet: Carb-consistent/Diabetic Discharge Data Primary Care Provider: Delfino Jones Quality VTE Deep Vein Thrombosis/Pulmonary Embolism Present on Admission: No MIPS - DC The patient has current or prior documentation of left ventricular ejection fraction (LVEF) less than 40%, or moderate or severely depressed left ventricular systolic function.: No
--- NOTE | 2020-10-11 11:19 | CM.DPC ---
Addendum entered by Merlyn Wall R.N. 10/11/20 15:01: Patient is discharging home today on oral antibiotics. He is having a friend pick him up. Gave patient a copy of his IMM. Original Note: DCP Cont: Discussed patient during team rounds. Culture is still pending, to determine which antibiotics that patient will be discharge on. He is currently on Vancomycin. P: DCP to continue to follow for any needs. Plan is home when stable, but have not yet determined which medication that patient will be discharged on. Merlyn Wall RN/Mail Sorting Supervisor
[2020-10-11] MEDS: INSULIN LISPRO 100 UNIT/ML 3ML VIAL SUBCUT (12:27)
[2020-10-11] MEDS: cephALEXin 250 MG CAPSULE 500 MG PO (13:19)
== END 2020-10-11 14:06 | disposition home health service (06) | DRG 638 ==
LOC: ED 21:53 → AC 10-09 01:44
PROVIDERS: Internal Medicine; Admitting Provider Nurse Practitioner Family; Emergency Provider Emergency Medicine; PCP Internal Medicine; Referring Provider Emergency Medicine; Visit Provider Nurse Practitioner Family
DX: E11.621 Type 2 diabetes mellitus with foot ulcer (principal); L97.516 Non-pressure chronic ulcer of other part of right foot with bone involvement without evidence of necrosis; E87.1 Hypo-osmolality and hyponatremia; L03.031 Cellulitis of right toe; E11.42 Type 2 diabetes mellitus with diabetic polyneuropathy; Z68.39 Body mass index [BMI] 39.0-39.9, adult; I10 Essential (primary) hypertension; E66.9 Obesity, unspecified; E89.0 Postprocedural hypothyroidism; E78.5 Hyperlipidemia, unspecified; K21.9 Gastro-esophageal reflux disease without esophagitis; G47.30 Sleep apnea, unspecified; Z20.822 Contact with and (suspected) exposure to COVID-19; Z79.4 Long term (current) use of insulin; Z89.421 Acquired absence of other right toe(s)
CPT/HCPCS: 36415; 73720; 80048; 80053; 80202; 82962; 83036; 83605; 83690; 83735; 84145; 84443; 85025; 85610; 85651; 86140; 87040; 87070; 87075; 87077; 87147; 87186; 87205; 87635; 93971; 94760; 96365; 96366; 97161; 99284; C9803; C9113; J1650; J1815

== ENCOUNTER → 2020-10-21 14:19 | Outpatient (CLI) | payer OTHER, SELFPAY ==
[2020-10-09 01:44] VITALS: BMI 39.6
== END ==
PROVIDERS: Family Provider Internal Medicine; PCP Internal Medicine; Referring Provider Internal Medicine; Visit Provider Family Medicine
DX: E11.621 Type 2 diabetes mellitus with foot ulcer (principal); L97.512 Non-pressure chronic ulcer of other part of right foot with fat layer exposed; L03.115 Cellulitis of right lower limb; L08.9 Local infection of the skin and subcutaneous tissue, unspecified; E11.40 Type 2 diabetes mellitus with diabetic neuropathy, unspecified; M20.11 Hallux valgus (acquired), right foot; Z87.891 Personal history of nicotine dependence; Z79.4 Long term (current) use of insulin
CPT/HCPCS: 11042; 87070; 87075; 87205; 99204; 99213

== ENCOUNTER → 2020-10-28 11:23 | Outpatient (CLI) | payer OTHER, SELFPAY ==
[2020-10-09 01:44] VITALS: BMI 39.6
== END ==
PROVIDERS: Family Provider Internal Medicine; PCP Internal Medicine; Referring Provider Internal Medicine; Visit Provider Family Medicine
DX: E11.621 Type 2 diabetes mellitus with foot ulcer (principal); L97.515 Non-pressure chronic ulcer of other part of right foot with muscle involvement without evidence of necrosis; R60.0 Localized edema; L53.8 Other specified erythematous conditions; L03.115 Cellulitis of right lower limb; L08.9 Local infection of the skin and subcutaneous tissue, unspecified
CPT/HCPCS: 11042; 87070; 87075; 87077; 87186; 87205; 99213

== ENCOUNTER → 2020-10-28 11:30 | Outpatient (CLI) | payer OTHER, SELFPAY ==
[2020-10-09 01:44] VITALS: BMI 39.6
[2020-10-28 12:14] LABS: Add Manual Diff / Slide Review NO; Basophils Absolute Auto 100 /uL (0-100); Basophils Percent Auto 0.7 % (0-2); Eosinophils Absolute Auto 200 /uL (0-450); Eosinophils Percent Auto 1.8 % (2-4); Hematocrit 39.3 % (41-53); Hemoglobin 12.8 g/dL (13.5-17.5); Lymphocytes Absolute Auto 2500 /uL (1100-4500); Lymphocytes Percent Auto 22.5 % (25-40); Mean Corpuscular HGB Conc 32.5 % (30-36); Mean Corpuscular Hemoglobin 28.3 PG (26-34); Mean Corpuscular Volume 86.8 fL (80-100); Monocytes Absolute Auto 700 /uL (0-900); Monocytes Percent Auto 6.1 % (3-14); Neutrophils Absolute Auto 7700 /uL (1500-7000); Neutrophils Percent Auto 68.9 % (50-75); Platelet Count 312 X10^3/uL (150-400); Red Blood Cell Count 4.53 X10^6/uL (4.5-5.9); Red Cell Distribution Width 14.2 % (11.6-14.8); White Blood Cell Count 11.2 X10^3/uL (4.5-11.0)
[2020-10-28 12:32] LABS: BUN Creatinine Ratio 18.5 (6-22); Blood Urea Nitrogen 17 mg/dL (9-20); C-Reactive Protein Quant 2.1 mg/dL (<1.0); Calcium 9.5 mg/dL (8.4-10.2); Carbon Dioxide 24 mmol/L (22-32); Chloride 97 mmol/L (98-107); Estimated Glomerular Filt Rate > 60.0 mL/min (>60); Glucose 160 mg/dL (80-110); HEMOLYSIS < 15 (0-50); Potassium 4.9 mmol/L (3.4-5.1); Sodium 133 mmol/L (137-145)
[2020-10-28 12:49] LABS: Erythrocyte Sedimentation Rate 38 MM/HR (0-15)
== END ==
PROVIDERS: Family Provider Internal Medicine; PCP Internal Medicine; Referring Provider Family Medicine; Visit Provider Family Medicine
DX: L97.512 Non-pressure chronic ulcer of other part of right foot with fat layer exposed (principal); L08.9 Local infection of the skin and subcutaneous tissue, unspecified; E11.621 Type 2 diabetes mellitus with foot ulcer; L97.515 Non-pressure chronic ulcer of other part of right foot with muscle involvement without evidence of necrosis; R60.0 Localized edema; L53.8 Other specified erythematous conditions; L03.115 Cellulitis of right lower limb
CPT/HCPCS: 11042; 36415; 80048; 85025; 85651; 86140; 87070; 87077; 87186; 87205

== ENCOUNTER → 2020-11-03 10:35 | Outpatient (CLI) | payer OTHER, SELFPAY ==
[2020-10-09 01:44] VITALS: BMI 39.6
== END ==
PROVIDERS: Family Provider Internal Medicine; PCP Internal Medicine; Referring Provider Internal Medicine; Visit Provider Family Medicine
DX: E11.621 Type 2 diabetes mellitus with foot ulcer (principal); L97.512 Non-pressure chronic ulcer of other part of right foot with fat layer exposed; L08.9 Local infection of the skin and subcutaneous tissue, unspecified; L84 Corns and callosities
CPT/HCPCS: 11042; 99213

== ENCOUNTER → 2020-11-07 16:01 | Outpatient (CLI) | payer OTHER, SELFPAY ==
[2020-10-09 01:44] VITALS: BMI 39.6
--- NOTE | 2020-11-07 | DI.MRI.S_ITS ---
PROCEDURE: MR FOOT RT WO/W CON INDICATIONS: Type 2 diabetes mellitus with foot ulcer TECHNIQUE: Noncontrast sagittal T1 spin echo and T2 fast spin echo with fat saturation, long-axis T1 spin echo and T2 fast spin echo with fat saturation; short-axis T1 spin echo, proton density fast spin echo, and T2 fast spin echo with fat saturation through the forefoot. Post-contrast short axis, long axis, and sagittal T1 spin echo with fat saturation through the forefoot. COMPARISON: [facility], CR, XR TOE(S) RIGHT, 10/08/2020, 15:56. [facility], MR, MR FOOT RT WO/W CON, 10/09/2020, 9:54. FINDINGS: Image quality: Excellent. Amputation of the 2nd toe at the level of the MTP joint. There is enhancement and marrow signal change involving the medial 1st metatarsal head with T2 hyperintensity and loss of the normal marrow fat signal intensity on T1 weighted pulse sequences which is suspicious for osteomyelitis. This appears new since 09/20/19. There is also overlying cortical loss. Severe great toe interphalangeal joint degeneration. Diffuse muscle atrophy. Diffuse circumferential subcutaneous edema. There is great toe soft tissue swelling. Medial hallux sesamoids appear grossly normal. Mild 1st-2nd intermetatarsal bursitis. No discrete abscess. IMPRESSION: Interval development of medial 1st metatarsal head marrow signal changes and enhancement since 10/09/20, highly suspicious for osteomyelitis. Dictated by: Marco Macedo M.D. on 11/07/2020 at 17:05 Approved by: Marco Macedo M.D. on 11/07/2020 at 17:10
== END ==
PROVIDERS: Family Provider Internal Medicine; PCP Internal Medicine; Referring Provider Family Medicine; Visit Provider Family Medicine
DX: E11.621 Type 2 diabetes mellitus with foot ulcer (principal); L03.115 Cellulitis of right lower limb; Z89.421 Acquired absence of other right toe(s)
CPT/HCPCS: 73720; A9579

== ENCOUNTER → 2020-11-10 11:25 | Outpatient (CLI) | payer OTHER, SELFPAY ==
[2020-10-09 01:44] VITALS: BMI 39.6
== END ==
PROVIDERS: Family Provider Internal Medicine; PCP Internal Medicine; Referring Provider Internal Medicine; Visit Provider Family Medicine
DX: E11.621 Type 2 diabetes mellitus with foot ulcer (principal); L97.512 Non-pressure chronic ulcer of other part of right foot with fat layer exposed; R60.0 Localized edema; L08.9 Local infection of the skin and subcutaneous tissue, unspecified
CPT/HCPCS: 11042; 99214

== ENCOUNTER → 2020-11-18 12:14 | Outpatient (CLI) | payer OTHER, SELFPAY ==
[2020-10-09 01:44] VITALS: BMI 39.6
== END ==
PROVIDERS: PCP Internal Medicine; Referring Provider Internal Medicine; Visit Provider Family Medicine
DX: E11.621 Type 2 diabetes mellitus with foot ulcer (principal); L97.511 Non-pressure chronic ulcer of other part of right foot limited to breakdown of skin; M86.671 Other chronic osteomyelitis, right ankle and foot; B95.62 Methicillin resistant Staphylococcus aureus infection as the cause of diseases classified elsewhere
CPT/HCPCS: 11042

== ENCOUNTER → 2020-11-26 15:01 | Outpatient (CLI) | payer OTHER, SELFPAY ==
[2020-10-09 01:44] VITALS: BMI 39.6
== END ==
PROVIDERS: PCP Internal Medicine; Referring Provider Internal Medicine; Visit Provider Family Medicine
DX: E11.621 Type 2 diabetes mellitus with foot ulcer (principal); L97.511 Non-pressure chronic ulcer of other part of right foot limited to breakdown of skin; M86.171 Other acute osteomyelitis, right ankle and foot; M20.11 Hallux valgus (acquired), right foot; Z79.2 Long term (current) use of antibiotics; B95.7 Other staphylococcus as the cause of diseases classified elsewhere; L84 Corns and callosities
CPT/HCPCS: 11042

== ENCOUNTER → 2020-12-03 13:51 | Outpatient (CLI) | payer OTHER, SELFPAY ==
[2020-10-09 01:44] VITALS: BMI 39.6
== END ==
PROVIDERS: PCP Internal Medicine; Referring Provider Internal Medicine; Visit Provider Family Medicine
DX: E11.621 Type 2 diabetes mellitus with foot ulcer (principal); L97.511 Non-pressure chronic ulcer of other part of right foot limited to breakdown of skin; L08.9 Local infection of the skin and subcutaneous tissue, unspecified; M86.171 Other acute osteomyelitis, right ankle and foot; M21.6X9 Other acquired deformities of unspecified foot; B95.7 Other staphylococcus as the cause of diseases classified elsewhere
CPT/HCPCS: 97597; 99213

== ENCOUNTER → 2020-12-10 14:22 | Outpatient (CLI) | payer OTHER, SELFPAY ==
[2020-10-09 01:44] VITALS: BMI 39.6
== END ==
PROVIDERS: PCP Internal Medicine; Referring Provider Internal Medicine; Visit Provider Family Medicine
DX: E11.621 Type 2 diabetes mellitus with foot ulcer (principal); L97.511 Non-pressure chronic ulcer of other part of right foot limited to breakdown of skin; M86.171 Other acute osteomyelitis, right ankle and foot; E11.40 Type 2 diabetes mellitus with diabetic neuropathy, unspecified; M20.11 Hallux valgus (acquired), right foot; Z79.2 Long term (current) use of antibiotics
CPT/HCPCS: 11042; 99214

== ENCOUNTER → 2020-12-16 15:11 | Outpatient (CLI) | payer OTHER, SELFPAY ==
[2020-10-09 01:44] VITALS: BMI 39.6
== END ==
PROVIDERS: PCP Internal Medicine; Referring Provider Internal Medicine; Visit Provider Family Medicine
DX: E11.621 Type 2 diabetes mellitus with foot ulcer (principal); L97.511 Non-pressure chronic ulcer of other part of right foot limited to breakdown of skin; M86.171 Other acute osteomyelitis, right ankle and foot; E11.40 Type 2 diabetes mellitus with diabetic neuropathy, unspecified; M20.11 Hallux valgus (acquired), right foot; Z79.2 Long term (current) use of antibiotics
CPT/HCPCS: 11042; 99214

== ENCOUNTER → 2020-12-24 13:03 | Outpatient (CLI) | payer OTHER, SELFPAY ==
[2020-10-09 01:44] VITALS: BMI 39.6
== END ==
PROVIDERS: PCP Internal Medicine; Referring Provider Internal Medicine; Visit Provider Family Medicine
DX: E11.621 Type 2 diabetes mellitus with foot ulcer (principal); L97.511 Non-pressure chronic ulcer of other part of right foot limited to breakdown of skin; M86.171 Other acute osteomyelitis, right ankle and foot; E11.40 Type 2 diabetes mellitus with diabetic neuropathy, unspecified; M20.11 Hallux valgus (acquired), right foot; Z79.2 Long term (current) use of antibiotics; D72.829 Elevated white blood cell count, unspecified; R79.82 Elevated C-reactive protein (CRP)
CPT/HCPCS: 97597; 99214

== ENCOUNTER → 2020-12-31 08:33 | Outpatient (CLI) | payer OTHER, SELFPAY ==
[2020-10-09 01:44] VITALS: BMI 39.6
== END ==
PROVIDERS: PCP Internal Medicine; Referring Provider Internal Medicine; Visit Provider Family Medicine
DX: E11.40 Type 2 diabetes mellitus with diabetic neuropathy, unspecified (principal); M20.11 Hallux valgus (acquired), right foot; R79.82 Elevated C-reactive protein (CRP)
CPT/HCPCS: 99213

== ENCOUNTER → 2021-03-04 14:51 | Outpatient (CLI) | payer OTHER, SELFPAY ==
[2020-10-09 01:44] VITALS: BMI 39.6
== END ==
PROVIDERS: PCP Internal Medicine; Referring Provider Internal Medicine; Visit Provider Family Medicine
DX: E11.621 Type 2 diabetes mellitus with foot ulcer (principal); L97.511 Non-pressure chronic ulcer of other part of right foot limited to breakdown of skin; E11.40 Type 2 diabetes mellitus with diabetic neuropathy, unspecified; B35.1 Tinea unguium; L08.9 Local infection of the skin and subcutaneous tissue, unspecified; M20.41 Other hammer toe(s) (acquired), right foot; Z79.4 Long term (current) use of insulin; Z79.84 Long term (current) use of oral hypoglycemic drugs
CPT/HCPCS: 97597; 99213; 99214

== ENCOUNTER → 2021-03-19 12:02 | Outpatient (CLI) | payer OTHER, SELFPAY ==
[2020-10-09 01:44] VITALS: BMI 39.6
== END ==
PROVIDERS: PCP Internal Medicine; Referring Provider Internal Medicine; Visit Provider Family Medicine
DX: E11.621 Type 2 diabetes mellitus with foot ulcer (principal); L97.512 Non-pressure chronic ulcer of other part of right foot with fat layer exposed; E11.40 Type 2 diabetes mellitus with diabetic neuropathy, unspecified; B35.1 Tinea unguium; L84 Corns and callosities; Z79.4 Long term (current) use of insulin; Z79.84 Long term (current) use of oral hypoglycemic drugs
CPT/HCPCS: 11042

== ENCOUNTER → 2021-04-02 09:08 | Outpatient (CLI) | payer OTHER, SELFPAY ==
[2020-10-09 01:44] VITALS: BMI 39.6
== END ==
PROVIDERS: PCP Internal Medicine; Referring Provider Internal Medicine; Visit Provider Family Medicine
DX: E11.621 Type 2 diabetes mellitus with foot ulcer (principal); L97.511 Non-pressure chronic ulcer of other part of right foot limited to breakdown of skin; L84 Corns and callosities; L60.0 Ingrowing nail; L08.9 Local infection of the skin and subcutaneous tissue, unspecified; E11.40 Type 2 diabetes mellitus with diabetic neuropathy, unspecified; Z89.421 Acquired absence of other right toe(s); Z79.4 Long term (current) use of insulin; Z79.84 Long term (current) use of oral hypoglycemic drugs
CPT/HCPCS: 87070; 87075; 87077; 87147; 87185; 87186; 87205; 99214

== ENCOUNTER → 2021-04-09 09:08 | Outpatient (CLI) | payer OTHER, SELFPAY ==
[2020-10-09 01:44] VITALS: BMI 39.6
== END ==
PROVIDERS: PCP Internal Medicine; Referring Provider Internal Medicine; Visit Provider Family Medicine
DX: E11.621 Type 2 diabetes mellitus with foot ulcer (principal); L97.512 Non-pressure chronic ulcer of other part of right foot with fat layer exposed; E11.40 Type 2 diabetes mellitus with diabetic neuropathy, unspecified; L60.0 Ingrowing nail; L08.9 Local infection of the skin and subcutaneous tissue, unspecified; B95.61 Methicillin susceptible Staphylococcus aureus infection as the cause of diseases classified elsewhere; Z79.4 Long term (current) use of insulin; Z79.84 Long term (current) use of oral hypoglycemic drugs
CPT/HCPCS: 11042; 11765; 99213

== ENCOUNTER → 2021-04-16 08:53 | Outpatient (CLI) | payer OTHER, SELFPAY ==
[2020-10-09 01:44] VITALS: BMI 39.6
== END ==
PROVIDERS: PCP Internal Medicine; Referring Provider Internal Medicine; Visit Provider Family Medicine
DX: E11.621 Type 2 diabetes mellitus with foot ulcer (principal); L97.512 Non-pressure chronic ulcer of other part of right foot with fat layer exposed; E11.40 Type 2 diabetes mellitus with diabetic neuropathy, unspecified; Z89.421 Acquired absence of other right toe(s); Z79.4 Long term (current) use of insulin; Z79.84 Long term (current) use of oral hypoglycemic drugs
CPT/HCPCS: 99212; 99213

== ENCOUNTER → 2021-04-30 09:18 | Outpatient (CLI) | payer OTHER, SELFPAY ==
[2020-10-09 01:44] VITALS: BMI 39.6
== END ==
PROVIDERS: PCP Internal Medicine; Referring Provider Internal Medicine; Visit Provider Family Medicine
DX: Z09 Encounter for follow-up examination after completed treatment for conditions other than malignant neoplasm (principal); E11.40 Type 2 diabetes mellitus with diabetic neuropathy, unspecified; Z89.421 Acquired absence of other right toe(s); Z87.2 Personal history of diseases of the skin and subcutaneous tissue
CPT/HCPCS: 99212

== ENCOUNTER → 2021-09-03 10:15 | Outpatient (CLI) | payer OTHER, SELFPAY ==
[2020-10-09 01:44] VITALS: BMI 39.6
--- NOTE | 2021-09-03 | DI.RAD.S_ITS ---
PROCEDURE: XR TOE RT MIN 2V INDICATIONS: 5th toe ulceration, distal phalanx probed TECHNIQUE: AP view of the foot and 2 views of the right foot 5th digit acquired. COMPARISON: [facility], CR, XR TOE(S) RIGHT, 10/08/2020, 15:56. [facility], CR, TOE MINIMUM 2 VIEWS LEFT, 11/23/2016, 11:10. FINDINGS: Bones: Prior amputation of the 2nd digit at the MTP joint as before. The 1st and 3rd through 5th digits are in flexion at the time of the exam. Degenerative changes present at the 1st MTP joint and multiple IP joints. No acute fracture visualized. On the oblique/lateral projection of the 5th digit, there is a small curvilinear calcific density along the dorsal margin of the distal phalanx. It is unclear if this represents sequela of prior trauma, soft tissue calcification, or periosteal reaction. Soft tissues: Possible soft tissue defect at the 5th digit. IMPRESSION: Tiny focus of calcification adjacent to the 5th digit distal phalanx, nonspecific. This raises the possibility of periosteal reaction which could be seen the setting of osteomyelitis but other causes of calcification such as sequela of prior trauma or joint degeneration are also possible. If further imaging evaluation for osteomyelitis is desired MRI may be helpful. Dictated by: Shalom Barkley M.D. on 09/03/2021 at 13:25 Approved by: Shalom Barkley M.D. on 09/03/2021 at 13:33
== END ==
PROVIDERS: PCP Internal Medicine; Referring Provider Podiatrist; Visit Provider Podiatrist
DX: M86.9 Osteomyelitis, unspecified (principal)
CPT/HCPCS: 73660

== ENCOUNTER → 2021-09-07 14:16 | Outpatient (CLI) | payer OTHER, SELFPAY ==
[2020-10-09 01:44] VITALS: BMI 39.6
[2021-09-07 17:14] LABS: Add Manual Diff / Slide Review NO; Basophils Absolute Auto 100 /uL (0-100); Basophils Percent Auto 0.5 % (0-2); Eosinophils Absolute Auto 800 /uL (0-450); Eosinophils Percent Auto 5.8 % (2-4); Hematocrit 39.7 % (41-53); Hemoglobin 13.2 g/dL (13.5-17.5); Lymphocytes Absolute Auto 3600 /uL (1100-4500); Lymphocytes Percent Auto 24.9 % (25-40); Mean Corpuscular HGB Conc 33.2 % (30-36); Mean Corpuscular Hemoglobin 28.3 PG (26-34); Mean Corpuscular Volume 85.2 fL (80-100); Monocytes Absolute Auto 700 /uL (0-900); Monocytes Percent Auto 5.2 % (3-14); Neutrophils Absolute Auto 9100 /uL (1500-7000); Neutrophils Percent Auto 63.6 % (50-75); Platelet Count 305 X10^3/uL (150-400); Red Blood Cell Count 4.66 X10^6/uL (4.5-5.9); Red Cell Distribution Width 14.5 % (11.6-14.8); White Blood Cell Count 14.3 X10^3/uL (4.5-11.0)
[2021-09-07 17:35] LABS: Erythrocyte Sedimentation Rate 37 MM/HR (0-15)
[2021-09-07 17:38] LABS: Alanine Aminotransferase 15 IU/L (<50); Albumin 4.7 g/dL (3.5-5.0); Albumin Globulin Ratio 1.3 (1.0-2.8); Alkaline Phosphatase 111 U/L (38-126); Aspartate Aminotransferase 25 IU/L (17-59); BUN Creatinine Ratio 15.6 (6-22); Bilirubin Total 0.3 mg/dL (0.2-1.3); Blood Urea Nitrogen 28 mg/dL (9-20); C-Reactive Protein Quant 1.1 mg/dL (<1.0); Calcium 9.6 mg/dL (8.4-10.2); Carbon Dioxide 19 mmol/L (22-32); Chloride 101 mmol/L (98-107); Estimated Glomerular Filt Rate 40 mL/min (>60); Globulin 3.7 g/dL (1.7-4.1); Glucose 83 mg/dL (80-110); HEMOLYSIS < 15 (0-50); Potassium 5.2 mmol/L (3.4-5.1); Sodium 135 mmol/L (137-145); Total Protein 8.4 g/dL (6.3-8.2)
== END ==
PROVIDERS: PCP Internal Medicine; Referring Provider Internal Medicine; Visit Provider Family Medicine
DX: E11.621 Type 2 diabetes mellitus with foot ulcer (principal); L97.514 Non-pressure chronic ulcer of other part of right foot with necrosis of bone; E11.40 Type 2 diabetes mellitus with diabetic neuropathy, unspecified; M20.11 Hallux valgus (acquired), right foot; M20.12 Hallux valgus (acquired), left foot; M20.41 Other hammer toe(s) (acquired), right foot; M20.42 Other hammer toe(s) (acquired), left foot; Z89.421 Acquired absence of other right toe(s); Z87.39 Personal history of other diseases of the musculoskeletal system and connective tissue; Z79.84 Long term (current) use of oral hypoglycemic drugs
CPT/HCPCS: 11042; 11044; 80053; 85025; 85651; 86140; 87070; 87075; 87077; 87147; 87186; 87205; 99213; 99214

== ENCOUNTER → 2021-09-15 08:49 | Outpatient (CLI) | payer OTHER, SELFPAY ==
[2020-10-09 01:44] VITALS: BMI 39.6
== END ==
PROVIDERS: PCP Internal Medicine; Referring Provider Podiatrist; Visit Provider Family Medicine
DX: E11.621 Type 2 diabetes mellitus with foot ulcer (principal); L97.512 Non-pressure chronic ulcer of other part of right foot with fat layer exposed; E11.69 Type 2 diabetes mellitus with other specified complication; M86.171 Other acute osteomyelitis, right ankle and foot; B95.61 Methicillin susceptible Staphylococcus aureus infection as the cause of diseases classified elsewhere; E11.40 Type 2 diabetes mellitus with diabetic neuropathy, unspecified; T37.0X5A Adverse effect of sulfonamides, initial encounter; E87.5 Hyperkalemia; N28.9 Disorder of kidney and ureter, unspecified; D72.829 Elevated white blood cell count, unspecified; Z79.2 Long term (current) use of antibiotics; Z89.421 Acquired absence of other right toe(s); Z79.84 Long term (current) use of oral hypoglycemic drugs
CPT/HCPCS: 11042; 99214

== ENCOUNTER → 2021-09-15 09:55 | Outpatient (CLI) | payer OTHER, SELFPAY ==
[2020-10-09 01:44] VITALS: BMI 39.6
[2021-09-15 10:40] LABS: Add Manual Diff / Slide Review NO; Basophils Absolute Auto 0 /uL (0-100); Basophils Percent Auto 0.4 % (0-2); Eosinophils Absolute Auto 800 /uL (0-450); Hematocrit 42.2 % (41-53); Hemoglobin 13.9 g/dL (13.5-17.5); Lymphocytes Absolute Auto 2600 /uL (1100-4500); Lymphocytes Percent Auto 19.7 % (25-40); Mean Corpuscular HGB Conc 32.9 % (30-36); Mean Corpuscular Hemoglobin 28.3 PG (26-34); Monocytes Absolute Auto 600 /uL (0-900); Monocytes Percent Auto 4.8 % (3-14); Neutrophils Absolute Auto 9100 /uL (1500-7000); Neutrophils Percent Auto 69.1 % (50-75); Platelet Count 312 X10^3/uL (150-400); Red Cell Distribution Width 14.5 % (11.6-14.8); White Blood Cell Count 13.2 X10^3/uL (4.5-11.0)
[2021-09-15 11:03] LABS: Blood Urea Nitrogen 28 mg/dL (9-20); C-Reactive Protein Quant 1.1 mg/dL (<1.0); Calcium 9.6 mg/dL (8.4-10.2); Carbon Dioxide 22 mmol/L (22-32); Chloride 100 mmol/L (98-107); Estimated Glomerular Filt Rate > 60 mL/min (>60); Glucose 100 mg/dL (80-110); HEMOLYSIS < 15 (0-50); Potassium 4.9 mmol/L (3.4-5.1); Sodium 137 mmol/L (137-145)
== END ==
PROVIDERS: PCP Internal Medicine; Referring Provider Family Medicine; Visit Provider Family Medicine
DX: E11.621 Type 2 diabetes mellitus with foot ulcer (principal)
CPT/HCPCS: 36415; 80048; 85025; 86140

== ENCOUNTER → 2021-09-22 08:53 | Outpatient (CLI) | payer OTHER, SELFPAY ==
[2020-10-09 01:44] VITALS: BMI 39.6
== END ==
PROVIDERS: PCP Internal Medicine; Referring Provider Internal Medicine; Visit Provider Family Medicine
DX: E11.621 Type 2 diabetes mellitus with foot ulcer (principal); L97.512 Non-pressure chronic ulcer of other part of right foot with fat layer exposed; E11.69 Type 2 diabetes mellitus with other specified complication; M86.171 Other acute osteomyelitis, right ankle and foot; B95.61 Methicillin susceptible Staphylococcus aureus infection as the cause of diseases classified elsewhere; E11.40 Type 2 diabetes mellitus with diabetic neuropathy, unspecified; Z79.2 Long term (current) use of antibiotics; Z89.421 Acquired absence of other right toe(s); Z79.84 Long term (current) use of oral hypoglycemic drugs; L08.9 Local infection of the skin and subcutaneous tissue, unspecified
CPT/HCPCS: 11042; 36415; 80053; 85025; 86140; 99214

== ENCOUNTER → 2021-09-22 09:48 | Outpatient (CLI) | payer OTHER, SELFPAY ==
[2020-10-09 01:44] VITALS: BMI 39.6
[2021-09-22 10:45] LABS: Add Manual Diff / Slide Review NO; Basophils Absolute Auto 100 /uL (0-100); Basophils Percent Auto 0.6 % (0-2); Eosinophils Absolute Auto 600 /uL (0-450); Eosinophils Percent Auto 5.4 % (2-4); Hematocrit 40.2 % (41-53); Hemoglobin 13.6 g/dL (13.5-17.5); Lymphocytes Absolute Auto 2600 /uL (1100-4500); Lymphocytes Percent Auto 24.9 % (25-40); Mean Corpuscular Hemoglobin 28.7 PG (26-34); Mean Corpuscular Volume 84.6 fL (80-100); Monocytes Absolute Auto 600 /uL (0-900); Neutrophils Absolute Auto 6500 /uL (1500-7000); Neutrophils Percent Auto 63.1 % (50-75); Platelet Count 284 X10^3/uL (150-400); Red Blood Cell Count 4.75 X10^6/uL (4.5-5.9); Red Cell Distribution Width 14.5 % (11.6-14.8); White Blood Cell Count 10.3 X10^3/uL (4.5-11.0)
[2021-09-22 11:08] LABS: Alanine Aminotransferase 13 IU/L (<50); Albumin 4.4 g/dL (3.5-5.0); Albumin Globulin Ratio 1.4 (1.0-2.8); Alkaline Phosphatase 115 U/L (38-126); Aspartate Aminotransferase 21 IU/L (17-59); Bilirubin Total 0.3 mg/dL (0.2-1.3); Blood Urea Nitrogen 26 mg/dL (9-20); C-Reactive Protein Quant 2.4 mg/dL (<1.0); Calcium 9.6 mg/dL (8.4-10.2); Carbon Dioxide 24 mmol/L (22-32); Chloride 100 mmol/L (98-107); Estimated Glomerular Filt Rate 59 mL/min (>60); Globulin 3.1 g/dL (1.7-4.1); Glucose 80 mg/dL (80-110); HEMOLYSIS < 15 (0-50); Potassium 5.1 mmol/L (3.4-5.1); Sodium 139 mmol/L (137-145); Total Protein 7.5 g/dL (6.3-8.2)
== END ==
PROVIDERS: PCP Internal Medicine; Referring Provider Family Medicine; Visit Provider Family Medicine
DX: L08.9 Local infection of the skin and subcutaneous tissue, unspecified (principal)
CPT/HCPCS: 36415; 80053; 85025; 86140

== ENCOUNTER → 2021-09-29 08:43 | Outpatient (CLI) | payer OTHER, SELFPAY ==
[2020-10-09 01:44] VITALS: BMI 39.6
== END ==
PROVIDERS: PCP Internal Medicine; Referring Provider Podiatrist; Visit Provider Family Medicine
DX: E11.621 Type 2 diabetes mellitus with foot ulcer (principal); L97.512 Non-pressure chronic ulcer of other part of right foot with fat layer exposed; L84 Corns and callosities; E11.69 Type 2 diabetes mellitus with other specified complication; M86.171 Other acute osteomyelitis, right ankle and foot; B95.61 Methicillin susceptible Staphylococcus aureus infection as the cause of diseases classified elsewhere; E11.40 Type 2 diabetes mellitus with diabetic neuropathy, unspecified; R79.82 Elevated C-reactive protein (CRP); Z79.2 Long term (current) use of antibiotics; Z89.421 Acquired absence of other right toe(s); Z79.84 Long term (current) use of oral hypoglycemic drugs
CPT/HCPCS: 11042; 36415; 80053; 85025; 86140; 99214

== ENCOUNTER → 2021-09-29 09:11 | Outpatient (CLI) | payer OTHER, SELFPAY ==
[2020-10-09 01:44] VITALS: BMI 39.6
[2021-09-29 10:28] LABS: Add Manual Diff / Slide Review NO; Basophils Absolute Auto 0 /uL (0-100); Basophils Percent Auto 0.3 % (0-2); Eosinophils Absolute Auto 500 /uL (0-450); Eosinophils Percent Auto 3.7 % (2-4); Hematocrit 41.2 % (41-53); Hemoglobin 13.7 g/dL (13.5-17.5); Lymphocytes Absolute Auto 2700 /uL (1100-4500); Lymphocytes Percent Auto 21.9 % (25-40); Mean Corpuscular HGB Conc 33.4 % (30-36); Mean Corpuscular Hemoglobin 28.2 PG (26-34); Mean Corpuscular Volume 84.6 fL (80-100); Monocytes Absolute Auto 700 /uL (0-900); Monocytes Percent Auto 5.6 % (3-14); Neutrophils Absolute Auto 8400 /uL (1500-7000); Neutrophils Percent Auto 68.5 % (50-75); Platelet Count 269 X10^3/uL (150-400); Red Blood Cell Count 4.87 X10^6/uL (4.5-5.9); Red Cell Distribution Width 14.9 % (11.6-14.8); White Blood Cell Count 12.3 X10^3/uL (4.5-11.0)
[2021-09-29 10:54] LABS: Alanine Aminotransferase 14 IU/L (<50); Albumin 4.2 g/dL (3.5-5.0); Albumin Globulin Ratio 1.3 (1.0-2.8); Alkaline Phosphatase 99 U/L (38-126); Aspartate Aminotransferase 20 IU/L (17-59); BUN Creatinine Ratio 26.4 (6-22); Bilirubin Total 0.4 mg/dL (0.2-1.3); Blood Urea Nitrogen 29 mg/dL (9-20); C-Reactive Protein Quant 1.6 mg/dL (<1.0); Calcium 9.5 mg/dL (8.4-10.2); Carbon Dioxide 25 mmol/L (22-32); Chloride 100 mmol/L (98-107); Estimated Glomerular Filt Rate > 60 mL/min (>60); Globulin 3.3 g/dL (1.7-4.1); Glucose 98 mg/dL (80-110); HEMOLYSIS < 15 (0-50); Potassium 5.1 mmol/L (3.4-5.1); Sodium 137 mmol/L (137-145); Total Protein 7.5 g/dL (6.3-8.2)
== END ==
PROVIDERS: PCP Internal Medicine; Referring Provider Family Medicine; Visit Provider Family Medicine
DX: Z79.2 Long term (current) use of antibiotics (principal)
CPT/HCPCS: 36415; 80053; 85025; 86140

== ENCOUNTER → 2021-10-08 08:55 | Outpatient (CLI) | payer OTHER, SELFPAY ==
[2020-10-09 01:44] VITALS: BMI 39.6
== END ==
PROVIDERS: PCP Internal Medicine; Referring Provider Internal Medicine; Visit Provider Family Medicine
DX: E11.621 Type 2 diabetes mellitus with foot ulcer (principal); L97.512 Non-pressure chronic ulcer of other part of right foot with fat layer exposed; L84 Corns and callosities; R60.0 Localized edema
CPT/HCPCS: 99213

== ENCOUNTER → 2021-10-12 11:44 | Outpatient (CLI) | payer OTHER, SELFPAY ==
[2020-10-09 01:44] VITALS: BMI 39.6
== END ==
PROVIDERS: PCP Internal Medicine; Referring Provider Internal Medicine; Visit Provider Family Medicine
DX: E11.621 Type 2 diabetes mellitus with foot ulcer (principal); L97.512 Non-pressure chronic ulcer of other part of right foot with fat layer exposed; M86.171 Other acute osteomyelitis, right ankle and foot; E11.42 Type 2 diabetes mellitus with diabetic polyneuropathy; B95.61 Methicillin susceptible Staphylococcus aureus infection as the cause of diseases classified elsewhere; Z79.2 Long term (current) use of antibiotics; R79.82 Elevated C-reactive protein (CRP); D72.829 Elevated white blood cell count, unspecified; L08.9 Local infection of the skin and subcutaneous tissue, unspecified
CPT/HCPCS: 17250; 36415; 80053; 85025; 86140; 99213; 99214

== ENCOUNTER → 2021-10-12 12:05 | Outpatient (CLI) | payer OTHER, SELFPAY ==
[2020-10-09 01:44] VITALS: BMI 39.6
[2021-10-12 13:02] LABS: Add Manual Diff / Slide Review NO; Basophils Absolute Auto 100 /uL (0-100); Basophils Percent Auto 0.4 % (0-2); Eosinophils Absolute Auto 500 /uL (0-450); Eosinophils Percent Auto 4.1 % (2-4); Hematocrit 40.3 % (41-53); Hemoglobin 13.5 g/dL (13.5-17.5); Lymphocytes Absolute Auto 2800 /uL (1100-4500); Lymphocytes Percent Auto 23.6 % (25-40); Mean Corpuscular HGB Conc 33.4 % (30-36); Mean Corpuscular Hemoglobin 28.1 PG (26-34); Mean Corpuscular Volume 84.1 fL (80-100); Monocytes Absolute Auto 800 /uL (0-900); Monocytes Percent Auto 6.6 % (3-14); Neutrophils Absolute Auto 7700 /uL (1500-7000); Neutrophils Percent Auto 65.3 % (50-75); Platelet Count 252 X10^3/uL (150-400); Red Blood Cell Count 4.79 X10^6/uL (4.5-5.9); Red Cell Distribution Width 15.1 % (11.6-14.8); White Blood Cell Count 11.8 X10^3/uL (4.5-11.0)
[2021-10-12 13:26] LABS: Alanine Aminotransferase 12 IU/L (<50); Albumin 4.1 g/dL (3.5-5.0); Albumin Globulin Ratio 1.3 (1.0-2.8); Alkaline Phosphatase 101 U/L (38-126); Aspartate Aminotransferase 19 IU/L (17-59); BUN Creatinine Ratio 17.6 (6-22); Bilirubin Total 0.4 mg/dL (0.2-1.3); Blood Urea Nitrogen 19 mg/dL (9-20); C-Reactive Protein Quant 2.5 mg/dL (<1.0); Calcium 9.1 mg/dL (8.4-10.2); Carbon Dioxide 27 mmol/L (22-32); Chloride 101 mmol/L (98-107); Estimated Glomerular Filt Rate > 60 mL/min (>60); Globulin 3.1 g/dL (1.7-4.1); Glucose 80 mg/dL (80-110); HEMOLYSIS < 15 (0-50); Sodium 138 mmol/L (137-145); Total Protein 7.2 g/dL (6.3-8.2)
== END ==
PROVIDERS: PCP Internal Medicine; Referring Provider Family Medicine; Visit Provider Family Medicine
DX: L08.9 Local infection of the skin and subcutaneous tissue, unspecified (principal); Z79.2 Long term (current) use of antibiotics
CPT/HCPCS: 36415; 80053; 85025; 86140

== ENCOUNTER → 2021-10-19 09:04 | Outpatient (CLI) | payer OTHER, SELFPAY ==
[2020-10-09 01:44] VITALS: BMI 39.6
== END ==
PROVIDERS: PCP Internal Medicine; Referring Provider Internal Medicine; Visit Provider Family Medicine
DX: E11.621 Type 2 diabetes mellitus with foot ulcer (principal); L97.514 Non-pressure chronic ulcer of other part of right foot with necrosis of bone; M86.171 Other acute osteomyelitis, right ankle and foot; E11.42 Type 2 diabetes mellitus with diabetic polyneuropathy; Z79.2 Long term (current) use of antibiotics; B95.61 Methicillin susceptible Staphylococcus aureus infection as the cause of diseases classified elsewhere
CPT/HCPCS: 11044; 36415; 80053; 85025; 86140; 87070; 87075; 87077; 87147; 87186; 87205; 99214

== ENCOUNTER → 2021-10-19 09:39 | Outpatient (CLI) | payer OTHER, SELFPAY ==
[2020-10-09 01:44] VITALS: BMI 39.6
[2021-10-19 10:05] LABS: Add Manual Diff / Slide Review NO; Basophils Absolute Auto 100 /uL (0-100); Eosinophils Absolute Auto 400 /uL (0-450); Eosinophils Percent Auto 3.5 % (2-4); Hematocrit 41.5 % (41-53); Hemoglobin 13.8 g/dL (13.5-17.5); Lymphocytes Absolute Auto 2800 /uL (1100-4500); Lymphocytes Percent Auto 24.1 % (25-40); Mean Corpuscular HGB Conc 33.2 % (30-36); Mean Corpuscular Hemoglobin 27.9 PG (26-34); Monocytes Absolute Auto 700 /uL (0-900); Monocytes Percent Auto 5.8 % (3-14); Neutrophils Absolute Auto 7500 /uL (1500-7000); Neutrophils Percent Auto 65.6 % (50-75); Platelet Count 256 X10^3/uL (150-400); Red Blood Cell Count 4.94 X10^6/uL (4.5-5.9); Red Cell Distribution Width 15.3 % (11.6-14.8); White Blood Cell Count 11.4 X10^3/uL (4.5-11.0)
[2021-10-19 10:29] LABS: Alanine Aminotransferase 12 IU/L (<50); Albumin 4.3 g/dL (3.5-5.0); Albumin Globulin Ratio 1.2 (1.0-2.8); Alkaline Phosphatase 107 U/L (38-126); Aspartate Aminotransferase 21 IU/L (17-59); BUN Creatinine Ratio 24.2 (6-22); Bilirubin Total 0.5 mg/dL (0.2-1.3); Blood Urea Nitrogen 29 mg/dL (9-20); C-Reactive Protein Quant 1.3 mg/dL (<1.0); Carbon Dioxide 26 mmol/L (22-32); Chloride 102 mmol/L (98-107); Estimated Glomerular Filt Rate > 60 mL/min (>60); Globulin 3.6 g/dL (1.7-4.1); Glucose 97 mg/dL (80-110); HEMOLYSIS 17 (0-50); Potassium 4.7 mmol/L (3.4-5.1); Sodium 136 mmol/L (137-145); Total Protein 7.9 g/dL (6.3-8.2)
== END ==
PROVIDERS: PCP Internal Medicine; Referring Provider Family Medicine; Visit Provider Family Medicine
DX: M86.171 Other acute osteomyelitis, right ankle and foot (principal); Z79.2 Long term (current) use of antibiotics
CPT/HCPCS: 36415; 80053; 85025; 86140

== ENCOUNTER → 2021-10-26 09:50 | Outpatient (CLI) | payer OTHER, SELFPAY ==
[2020-10-09 01:44] VITALS: BMI 39.6
== END ==
PROVIDERS: PCP Internal Medicine; Referring Provider Internal Medicine; Visit Provider Family Medicine
DX: E11.621 Type 2 diabetes mellitus with foot ulcer (principal); L97.512 Non-pressure chronic ulcer of other part of right foot with fat layer exposed; M86.171 Other acute osteomyelitis, right ankle and foot; R60.0 Localized edema; E11.40 Type 2 diabetes mellitus with diabetic neuropathy, unspecified; B95.7 Other staphylococcus as the cause of diseases classified elsewhere; R79.82 Elevated C-reactive protein (CRP); D72.89 Other specified disorders of white blood cells; Z79.2 Long term (current) use of antibiotics
CPT/HCPCS: 11042; 99214

== ENCOUNTER → 2021-11-02 08:43 | Outpatient (CLI) | payer OTHER, SELFPAY ==
[2020-10-09 01:44] VITALS: BMI 39.6
[2021-11-02 10:57] LABS: Add Manual Diff / Slide Review NO; Basophils Absolute Auto 0 /uL (0-100); Basophils Percent Auto 0.4 % (0-2); Eosinophils Absolute Auto 300 /uL (0-450); Eosinophils Percent Auto 2.8 % (2-4); Hematocrit 41.7 % (41-53); Lymphocytes Absolute Auto 2300 /uL (1100-4500); Lymphocytes Percent Auto 21.5 % (25-40); Mean Corpuscular HGB Conc 33.6 % (30-36); Mean Corpuscular Hemoglobin 27.8 PG (26-34); Mean Corpuscular Volume 82.8 fL (80-100); Monocytes Absolute Auto 700 /uL (0-900); Monocytes Percent Auto 6.3 % (3-14); Neutrophils Absolute Auto 7400 /uL (1500-7000); Platelet Count 259 X10^3/uL (150-400); Red Blood Cell Count 5.03 X10^6/uL (4.5-5.9); Red Cell Distribution Width 15.2 % (11.6-14.8); White Blood Cell Count 10.7 X10^3/uL (4.5-11.0)
[2021-11-02 11:25] LABS: Alanine Aminotransferase 14 IU/L (<50); Albumin 4.2 g/dL (3.5-5.0); Albumin Globulin Ratio 1.3 (1.0-2.8); Alkaline Phosphatase 97 U/L (38-126); Aspartate Aminotransferase 19 IU/L (17-59); BUN Creatinine Ratio 19.3 (6-22); Bilirubin Total 0.5 mg/dL (0.2-1.3); Blood Urea Nitrogen 27 mg/dL (9-20); C-Reactive Protein Quant 0.9 mg/dL (<1.0); Calcium 9.8 mg/dL (8.4-10.2); Carbon Dioxide 28 mmol/L (22-32); Chloride 99 mmol/L (98-107); Estimated Glomerular Filt Rate 54 mL/min (>60); Globulin 3.2 g/dL (1.7-4.1); Glucose 85 mg/dL (80-110); HEMOLYSIS < 15 (0-50); Potassium 5.1 mmol/L (3.4-5.1); Sodium 137 mmol/L (137-145); Total Protein 7.4 g/dL (6.3-8.2)
== END ==
PROVIDERS: PCP Internal Medicine; Referring Provider Internal Medicine; Visit Provider Family Medicine
DX: E11.621 Type 2 diabetes mellitus with foot ulcer (principal); L97.512 Non-pressure chronic ulcer of other part of right foot with fat layer exposed; E11.42 Type 2 diabetes mellitus with diabetic polyneuropathy; Z79.2 Long term (current) use of antibiotics; R79.82 Elevated C-reactive protein (CRP); D72.829 Elevated white blood cell count, unspecified; B95.7 Other staphylococcus as the cause of diseases classified elsewhere; Z89.421 Acquired absence of other right toe(s)
CPT/HCPCS: 11042; 36415; 80053; 85025; 86140; 99214

== ENCOUNTER → 2021-11-09 08:39 | Outpatient (CLI) | payer OTHER, SELFPAY ==
[2020-10-09 01:44] VITALS: BMI 39.6
[2021-11-09 11:08] LABS: Add Manual Diff / Slide Review NO; Basophils Absolute Auto 0 /uL (0-100); Basophils Percent Auto 0.3 % (0-2); Eosinophils Absolute Auto 400 /uL (0-450); Eosinophils Percent Auto 3.9 % (2-4); Hematocrit 41.1 % (41-53); Hemoglobin 13.8 g/dL (13.5-17.5); Lymphocytes Absolute Auto 2400 /uL (1100-4500); Lymphocytes Percent Auto 23.7 % (25-40); Mean Corpuscular HGB Conc 33.6 % (30-36); Mean Corpuscular Hemoglobin 27.9 PG (26-34); Monocytes Absolute Auto 600 /uL (0-900); Monocytes Percent Auto 5.9 % (3-14); Neutrophils Absolute Auto 6800 /uL (1500-7000); Neutrophils Percent Auto 66.2 % (50-75); Platelet Count 244 X10^3/uL (150-400); Red Blood Cell Count 4.95 X10^6/uL (4.5-5.9); Red Cell Distribution Width 15.6 % (11.6-14.8); White Blood Cell Count 10.3 X10^3/uL (4.5-11.0)
[2021-11-09 11:18] LABS: Alanine Aminotransferase 13 IU/L (<50); Albumin 4.3 g/dL (3.5-5.0); Albumin Globulin Ratio 1.2 (1.0-2.8); Alkaline Phosphatase 119 U/L (38-126); Aspartate Aminotransferase 25 IU/L (17-59); BUN Creatinine Ratio 21.6 (6-22); Bilirubin Total 0.4 mg/dL (0.2-1.3); Blood Urea Nitrogen 25 mg/dL (9-20); C-Reactive Protein Quant 1.3 mg/dL (<1.0); Calcium 8.8 mg/dL (8.4-10.2); Carbon Dioxide 27 mmol/L (22-32); Chloride 100 mmol/L (98-107); Estimated Glomerular Filt Rate > 60 mL/min (>60); Globulin 3.6 g/dL (1.7-4.1); Glucose 103 mg/dL (80-110); HEMOLYSIS 23 (0-50); Potassium 4.7 mmol/L (3.4-5.1); Sodium 136 mmol/L (137-145); Total Protein 7.9 g/dL (6.3-8.2)
== END ==
PROVIDERS: PCP Internal Medicine; Referring Provider Internal Medicine; Visit Provider Family Medicine
DX: E11.621 Type 2 diabetes mellitus with foot ulcer (principal); L97.512 Non-pressure chronic ulcer of other part of right foot with fat layer exposed
CPT/HCPCS: 36415; 80053; 85025; 86140; 97597

== ENCOUNTER → 2021-11-17 08:52 | Outpatient (CLI) | payer OTHER, SELFPAY ==
[2020-10-09 01:44] VITALS: BMI 39.6
== END ==
PROVIDERS: PCP Internal Medicine; Referring Provider Internal Medicine; Visit Provider Family Medicine
DX: L08.9 Local infection of the skin and subcutaneous tissue, unspecified (principal); T14.8XXA Other injury of unspecified body region, initial encounter; E11.621 Type 2 diabetes mellitus with foot ulcer; L97.512 Non-pressure chronic ulcer of other part of right foot with fat layer exposed; E11.40 Type 2 diabetes mellitus with diabetic neuropathy, unspecified; Z79.2 Long term (current) use of antibiotics; R79.82 Elevated C-reactive protein (CRP); M86.9 Osteomyelitis, unspecified; R60.0 Localized edema; Z89.421 Acquired absence of other right toe(s)
CPT/HCPCS: 11042; 36415; 80053; 85025; 86140; 99214

== ENCOUNTER → 2021-11-17 09:26 | Outpatient (CLI) | payer OTHER, SELFPAY ==
[2020-10-09 01:44] VITALS: BMI 39.6
[2021-11-17 10:08] LABS: Add Manual Diff / Slide Review NO; Basophils Absolute Auto 0 /uL (0-100); Basophils Percent Auto 0.4 % (0-2); Eosinophils Absolute Auto 400 /uL (0-450); Eosinophils Percent Auto 4.6 % (2-4); Hematocrit 42.4 % (41-53); Hemoglobin 13.8 g/dL (13.5-17.5); Lymphocytes Absolute Auto 2100 /uL (1100-4500); Lymphocytes Percent Auto 25.6 % (25-40); Mean Corpuscular HGB Conc 32.5 % (30-36); Mean Corpuscular Hemoglobin 27.1 PG (26-34); Mean Corpuscular Volume 83.3 fL (80-100); Monocytes Absolute Auto 600 /uL (0-900); Monocytes Percent Auto 6.8 % (3-14); Neutrophils Absolute Auto 5100 /uL (1500-7000); Neutrophils Percent Auto 62.6 % (50-75); Platelet Count 240 X10^3/uL (150-400); Red Blood Cell Count 5.09 X10^6/uL (4.5-5.9); White Blood Cell Count 8.1 X10^3/uL (4.5-11.0)
[2021-11-17 11:09] LABS: Alanine Aminotransferase 13 IU/L (<50); Albumin 4.2 g/dL (3.5-5.0); Albumin Globulin Ratio 1.2 (1.0-2.8); Alkaline Phosphatase 90 U/L (38-126); Aspartate Aminotransferase 22 IU/L (17-59); BUN Creatinine Ratio 22.2 (6-22); Bilirubin Total 0.6 mg/dL (0.2-1.3); Blood Urea Nitrogen 28 mg/dL (9-20); C-Reactive Protein Quant 1.5 mg/dL (<1.0); Calcium 9.3 mg/dL (8.4-10.2); Carbon Dioxide 28 mmol/L (22-32); Chloride 101 mmol/L (98-107); Estimated Glomerular Filt Rate > 60 mL/min (>60); Globulin 3.6 g/dL (1.7-4.1); Glucose 90 mg/dL (80-110); HEMOLYSIS < 15 (0-50); Potassium 4.6 mmol/L (3.4-5.1); Sodium 138 mmol/L (137-145); Total Protein 7.8 g/dL (6.3-8.2)
== END ==
PROVIDERS: PCP Internal Medicine; Referring Provider Family Medicine; Visit Provider Family Medicine
DX: L08.9 Local infection of the skin and subcutaneous tissue, unspecified (principal); T14.8XXA Other injury of unspecified body region, initial encounter
CPT/HCPCS: 36415; 80053; 85025; 86140

== ENCOUNTER → 2021-11-23 09:08 | Outpatient (CLI) | payer OTHER, SELFPAY ==
[2020-10-09 01:44] VITALS: BMI 39.6
== END ==
PROVIDERS: PCP Internal Medicine; Referring Provider Internal Medicine; Visit Provider Family Medicine
DX: L08.9 Local infection of the skin and subcutaneous tissue, unspecified (principal); E11.621 Type 2 diabetes mellitus with foot ulcer; L97.512 Non-pressure chronic ulcer of other part of right foot with fat layer exposed; E11.40 Type 2 diabetes mellitus with diabetic neuropathy, unspecified; Z79.2 Long term (current) use of antibiotics; M86.9 Osteomyelitis, unspecified; R60.0 Localized edema
CPT/HCPCS: 11042; 36415; 80053; 85025; 85651; 86140; 99213; 99214

== ENCOUNTER → 2021-11-23 09:29 | Outpatient (CLI) | payer OTHER, SELFPAY ==
[2020-10-09 01:44] VITALS: BMI 39.6
[2021-11-23 10:56] LABS: Add Manual Diff / Slide Review NO; Basophils Absolute Auto 0 /uL (0-100); Basophils Percent Auto 0.5 % (0-2); Eosinophils Absolute Auto 400 /uL (0-450); Eosinophils Percent Auto 5.3 % (2-4); Hematocrit 40.5 % (41-53); Hemoglobin 13.4 g/dL (13.5-17.5); Lymphocytes Absolute Auto 1900 /uL (1100-4500); Lymphocytes Percent Auto 24.2 % (25-40); Mean Corpuscular HGB Conc 33.2 % (30-36); Mean Corpuscular Hemoglobin 27.6 PG (26-34); Mean Corpuscular Volume 83.1 fL (80-100); Monocytes Absolute Auto 600 /uL (0-900); Neutrophils Absolute Auto 5100 /uL (1500-7000); Platelet Count 229 X10^3/uL (150-400); Red Blood Cell Count 4.87 X10^6/uL (4.5-5.9); Red Cell Distribution Width 16.2 % (11.6-14.8)
[2021-11-23 11:42] LABS: Erythrocyte Sedimentation Rate 14 MM/HR (0-15)
[2021-11-23 12:04] LABS: Alanine Aminotransferase 11 IU/L (<50); Albumin Globulin Ratio 1.3 (1.0-2.8); Alkaline Phosphatase 92 U/L (38-126); Aspartate Aminotransferase 19 IU/L (17-59); Bilirubin Total 0.5 mg/dL (0.2-1.3); Blood Urea Nitrogen 24 mg/dL (9-20); C-Reactive Protein Quant 1.3 mg/dL (<1.0); Calcium 9.2 mg/dL (8.4-10.2); Carbon Dioxide 25 mmol/L (22-32); Chloride 101 mmol/L (98-107); Estimated Glomerular Filt Rate > 60 mL/min (>60); Glucose 97 mg/dL (80-110); HEMOLYSIS < 15 (0-50); Potassium 4.8 mmol/L (3.4-5.1); Sodium 138 mmol/L (137-145)
== END ==
PROVIDERS: PCP Internal Medicine; Referring Provider Family Medicine; Visit Provider Family Medicine
DX: L08.9 Local infection of the skin and subcutaneous tissue, unspecified (principal)
CPT/HCPCS: 36415; 80053; 85025; 85651; 86140

== ENCOUNTER → 2021-11-30 09:03 | Outpatient (CLI) | payer OTHER, SELFPAY ==
[2020-10-09 01:44] VITALS: BMI 39.6
== END ==
PROVIDERS: PCP Internal Medicine; Referring Provider Internal Medicine; Visit Provider Family Medicine
DX: L08.9 Local infection of the skin and subcutaneous tissue, unspecified (principal); E11.621 Type 2 diabetes mellitus with foot ulcer; L97.512 Non-pressure chronic ulcer of other part of right foot with fat layer exposed; E11.42 Type 2 diabetes mellitus with diabetic polyneuropathy; Z79.2 Long term (current) use of antibiotics; L08.89 Other specified local infections of the skin and subcutaneous tissue
CPT/HCPCS: 11042; 36415; 80053; 85025; 86140; 87070; 87075; 87077; 87186; 87205; 99214

== ENCOUNTER → 2021-11-30 09:31 | Outpatient (CLI) | payer OTHER, SELFPAY ==
[2020-10-09 01:44] VITALS: BMI 39.6
[2021-11-30 11:50] LABS: Add Manual Diff / Slide Review NO; Basophils Absolute Auto 0 /uL (0-100); Basophils Percent Auto 0.3 % (0-2); Eosinophils Absolute Auto 400 /uL (0-450); Eosinophils Percent Auto 3.7 % (2-4); Hematocrit 43.3 % (41-53); Hemoglobin 14.2 g/dL (13.5-17.5); Lymphocytes Absolute Auto 2500 /uL (1100-4500); Lymphocytes Percent Auto 25.9 % (25-40); Mean Corpuscular HGB Conc 32.7 % (30-36); Mean Corpuscular Hemoglobin 27.4 PG (26-34); Mean Corpuscular Volume 83.9 fL (80-100); Monocytes Absolute Auto 600 /uL (0-900); Monocytes Percent Auto 5.8 % (3-14); Neutrophils Absolute Auto 6200 /uL (1500-7000); Neutrophils Percent Auto 64.3 % (50-75); Platelet Count 219 X10^3/uL (150-400); Red Blood Cell Count 5.16 X10^6/uL (4.5-5.9); White Blood Cell Count 9.7 X10^3/uL (4.5-11.0)
[2021-11-30 12:07] LABS: Alanine Aminotransferase 10 IU/L (<50); Albumin 4.2 g/dL (3.5-5.0); Albumin Globulin Ratio 1.2 (1.0-2.8); Alkaline Phosphatase 82 U/L (38-126); Aspartate Aminotransferase 19 IU/L (17-59); Bilirubin Total 0.6 mg/dL (0.2-1.3); Blood Urea Nitrogen 22 mg/dL (9-20); C-Reactive Protein Quant 1.1 mg/dL (<1.0); Carbon Dioxide 26 mmol/L (22-32); Chloride 100 mmol/L (98-107); Estimated Glomerular Filt Rate > 60 mL/min (>60); Globulin 3.6 g/dL (1.7-4.1); Glucose 87 mg/dL (80-110); HEMOLYSIS < 15 (0-50); Potassium 4.2 mmol/L (3.4-5.1); Sodium 140 mmol/L (137-145); Total Protein 7.8 g/dL (6.3-8.2)
== END ==
PROVIDERS: PCP Internal Medicine; Referring Provider Family Medicine; Visit Provider Family Medicine
DX: L08.9 Local infection of the skin and subcutaneous tissue, unspecified (principal)
CPT/HCPCS: 36415; 80053; 85025; 86140

== ENCOUNTER → 2021-12-07 09:01 | Outpatient (CLI) | payer OTHER, SELFPAY ==
[2020-10-09 01:44] VITALS: BMI 39.6
== END ==
PROVIDERS: PCP Internal Medicine; Referring Provider Internal Medicine; Visit Provider Family Medicine
DX: E11.621 Type 2 diabetes mellitus with foot ulcer (principal); L97.514 Non-pressure chronic ulcer of other part of right foot with necrosis of bone; R60.0 Localized edema; L53.9 Erythematous condition, unspecified; E11.42 Type 2 diabetes mellitus with diabetic polyneuropathy; Z79.2 Long term (current) use of antibiotics; L08.89 Other specified local infections of the skin and subcutaneous tissue
CPT/HCPCS: 11044; 87070; 87075; 87077; 87186; 87205; 99214

== ENCOUNTER → 2021-12-10 16:00 | Outpatient (CLI) | payer OTHER, SELFPAY ==
[2020-10-09 01:44] VITALS: BMI 39.6
== END ==
PROVIDERS: PCP Internal Medicine; Referring Provider Internal Medicine; Visit Provider Family Medicine
DX: E11.621 Type 2 diabetes mellitus with foot ulcer (principal); L97.514 Non-pressure chronic ulcer of other part of right foot with necrosis of bone; R60.0 Localized edema; L53.9 Erythematous condition, unspecified
CPT/HCPCS: 99213

== ENCOUNTER → 2021-12-14 08:31 | Outpatient (CLI) | payer OTHER, SELFPAY ==
[2020-10-09 01:44] VITALS: BMI 39.6
== END ==
PROVIDERS: PCP Internal Medicine; Referring Provider Internal Medicine; Visit Provider Family Medicine
DX: E11.621 Type 2 diabetes mellitus with foot ulcer (principal); L97.516 Non-pressure chronic ulcer of other part of right foot with bone involvement without evidence of necrosis; E11.40 Type 2 diabetes mellitus with diabetic neuropathy, unspecified; L08.89 Other specified local infections of the skin and subcutaneous tissue; R60.0 Localized edema; L53.9 Erythematous condition, unspecified; R79.82 Elevated C-reactive protein (CRP); Z79.2 Long term (current) use of antibiotics
CPT/HCPCS: 11042; 36415; 80053; 85025; 85651; 86140; 99213; 99214

== ENCOUNTER → 2021-12-14 09:19 | Outpatient (CLI) | payer OTHER, SELFPAY ==
[2020-10-09 01:44] VITALS: BMI 39.6
[2021-12-14 09:38] LABS: Add Manual Diff / Slide Review NO; Basophils Absolute Auto 100 /uL (0-100); Basophils Percent Auto 1.1 % (0-2); Eosinophils Absolute Auto 300 /uL (0-450); Eosinophils Percent Auto 3.4 % (2-4); Hematocrit 43.5 % (41-53); Lymphocytes Absolute Auto 2400 /uL (1100-4500); Mean Corpuscular HGB Conc 32.3 % (30-36); Mean Corpuscular Hemoglobin 27.2 PG (26-34); Mean Corpuscular Volume 84.3 fL (80-100); Monocytes Absolute Auto 400 /uL (0-900); Monocytes Percent Auto 4.5 % (3-14); Neutrophils Absolute Auto 6200 /uL (1500-7000); Platelet Count 223 X10^3/uL (150-400); Red Blood Cell Count 5.16 X10^6/uL (4.5-5.9); Red Cell Distribution Width 15.4 % (11.6-14.8); White Blood Cell Count 9.4 X10^3/uL (4.5-11.0)
[2021-12-14 09:57] LABS: Erythrocyte Sedimentation Rate 12 MM/HR (0-15)
[2021-12-14 10:08] LABS: Alanine Aminotransferase 12 IU/L (<50); Albumin 4.1 g/dL (3.5-5.0); Albumin Globulin Ratio 1.2 (1.0-2.8); Alkaline Phosphatase 91 U/L (38-126); Aspartate Aminotransferase 21 IU/L (17-59); Bilirubin Total 0.5 mg/dL (0.2-1.3); Blood Urea Nitrogen 21 mg/dL (9-20); C-Reactive Protein Quant 1.1 mg/dL (<1.0); Calcium 9.7 mg/dL (8.4-10.2); Carbon Dioxide 27 mmol/L (22-32); Chloride 101 mmol/L (98-107); Estimated Glomerular Filt Rate > 60 mL/min (>60); Globulin 3.3 g/dL (1.7-4.1); Glucose 82 mg/dL (80-110); HEMOLYSIS < 15 (0-50); Potassium 4.5 mmol/L (3.4-5.1); Sodium 139 mmol/L (137-145); Total Protein 7.4 g/dL (6.3-8.2)
== END ==
PROVIDERS: PCP Internal Medicine; Referring Provider Family Medicine; Visit Provider Family Medicine
DX: L08.9 Local infection of the skin and subcutaneous tissue, unspecified (principal); Z79.2 Long term (current) use of antibiotics
CPT/HCPCS: 36415; 80053; 85025; 85651; 86140

== ENCOUNTER → 2021-12-21 08:42 | Outpatient (CLI) | payer OTHER, SELFPAY ==
[2020-10-09 01:44] VITALS: BMI 39.6
== END ==
PROVIDERS: PCP Internal Medicine; Referring Provider Podiatrist; Visit Provider Family Medicine
DX: Z79.2 Long term (current) use of antibiotics (principal); E11.621 Type 2 diabetes mellitus with foot ulcer; L97.516 Non-pressure chronic ulcer of other part of right foot with bone involvement without evidence of necrosis; L08.89 Other specified local infections of the skin and subcutaneous tissue; R60.0 Localized edema; E11.42 Type 2 diabetes mellitus with diabetic polyneuropathy; L53.9 Erythematous condition, unspecified; R79.82 Elevated C-reactive protein (CRP)
CPT/HCPCS: 11042; 36415; 80053; 85025; 86140; 99214

== ENCOUNTER → 2021-12-21 09:12 | Outpatient (CLI) | payer OTHER, SELFPAY ==
[2020-10-09 01:44] VITALS: BMI 39.6
[2021-12-21 10:31] LABS: Add Manual Diff / Slide Review NO; Basophils Absolute Auto 0 /uL (0-100); Basophils Percent Auto 0.3 % (0-2); Eosinophils Absolute Auto 300 /uL (0-450); Eosinophils Percent Auto 3.8 % (2-4); Hematocrit 42.8 % (41-53); Lymphocytes Absolute Auto 2000 /uL (1100-4500); Lymphocytes Percent Auto 22.4 % (25-40); Mean Corpuscular HGB Conc 32.6 % (30-36); Mean Corpuscular Hemoglobin 27.1 PG (26-34); Mean Corpuscular Volume 83.2 fL (80-100); Monocytes Absolute Auto 600 /uL (0-900); Monocytes Percent Auto 7.1 % (3-14); Neutrophils Absolute Auto 5800 /uL (1500-7000); Neutrophils Percent Auto 66.4 % (50-75); Platelet Count 237 X10^3/uL (150-400); Red Blood Cell Count 5.15 X10^6/uL (4.5-5.9); Red Cell Distribution Width 15.7 % (11.6-14.8); White Blood Cell Count 8.7 X10^3/uL (4.5-11.0)
[2021-12-21 10:50] LABS: Alanine Aminotransferase 12 IU/L (<50); Albumin Globulin Ratio 1.2 (1.0-2.8); Alkaline Phosphatase 99 U/L (38-126); Aspartate Aminotransferase 21 IU/L (17-59); BUN Creatinine Ratio 19.6 (6-22); Bilirubin Total 0.4 mg/dL (0.2-1.3); Blood Urea Nitrogen 22 mg/dL (9-20); C-Reactive Protein Quant 1.7 mg/dL (<1.0); Calcium 9.4 mg/dL (8.4-10.2); Carbon Dioxide 26 mmol/L (22-32); Chloride 99 mmol/L (98-107); Estimated Glomerular Filt Rate > 60 mL/min (>60); Globulin 3.3 g/dL (1.7-4.1); Glucose 89 mg/dL (80-110); HEMOLYSIS < 15 (0-50); Potassium 4.4 mmol/L (3.4-5.1); Sodium 137 mmol/L (137-145); Total Protein 7.3 g/dL (6.3-8.2)
== END ==
PROVIDERS: PCP Internal Medicine; Referring Provider Family Medicine; Visit Provider Family Medicine
DX: Z79.2 Long term (current) use of antibiotics (principal)
CPT/HCPCS: 36415; 80053; 85025; 86140

== ENCOUNTER → 2021-12-28 08:53 | Outpatient (CLI) | payer OTHER, SELFPAY ==
[2020-10-09 01:44] VITALS: BMI 39.6
== END ==
PROVIDERS: PCP Internal Medicine; Referring Provider Internal Medicine; Visit Provider Family Medicine
DX: E11.621 Type 2 diabetes mellitus with foot ulcer (principal); L08.9 Local infection of the skin and subcutaneous tissue, unspecified; L97.514 Non-pressure chronic ulcer of other part of right foot with necrosis of bone; E11.42 Type 2 diabetes mellitus with diabetic polyneuropathy; L08.89 Other specified local infections of the skin and subcutaneous tissue; R60.0 Localized edema; L53.9 Erythematous condition, unspecified; Z79.2 Long term (current) use of antibiotics; R79.82 Elevated C-reactive protein (CRP)
CPT/HCPCS: 11042; 36415; 80053; 85025; 85651; 86140; 87070; 87075; 87205; 99214

== ENCOUNTER → 2021-12-28 10:37 | Outpatient (CLI) | payer OTHER, SELFPAY ==
[2020-10-09 01:44] VITALS: BMI 39.6
[2021-12-28 12:06] LABS: Add Manual Diff / Slide Review NO; Basophils Absolute Auto 0 /uL (0-100); Basophils Percent Auto 0.3 % (0-2); Eosinophils Absolute Auto 400 /uL (0-450); Eosinophils Percent Auto 3.2 % (2-4); Hemoglobin 14.1 g/dL (13.5-17.5); Lymphocytes Absolute Auto 2600 /uL (1100-4500); Lymphocytes Percent Auto 20.5 % (25-40); Mean Corpuscular HGB Conc 32.8 % (30-36); Mean Corpuscular Hemoglobin 27.1 PG (26-34); Mean Corpuscular Volume 82.6 fL (80-100); Monocytes Absolute Auto 800 /uL (0-900); Neutrophils Absolute Auto 8900 /uL (1500-7000); Platelet Count 256 X10^3/uL (150-400); Red Blood Cell Count 5.21 X10^6/uL (4.5-5.9); Red Cell Distribution Width 15.2 % (11.6-14.8); White Blood Cell Count 12.7 X10^3/uL (4.5-11.0)
[2021-12-28 12:44] LABS: Alanine Aminotransferase 11 IU/L (<50); Albumin 4.2 g/dL (3.5-5.0); Albumin Globulin Ratio 1.1 (1.0-2.8); Alkaline Phosphatase 107 U/L (38-126); Aspartate Aminotransferase 21 IU/L (17-59); BUN Creatinine Ratio 15.8 (6-22); Bilirubin Total 0.4 mg/dL (0.2-1.3); Blood Urea Nitrogen 18 mg/dL (9-20); C-Reactive Protein Quant 1.4 mg/dL (<1.0); Calcium 9.1 mg/dL (8.4-10.2); Carbon Dioxide 23 mmol/L (22-32); Chloride 99 mmol/L (98-107); Estimated Glomerular Filt Rate > 60 mL/min (>60); Globulin 3.7 g/dL (1.7-4.1); Glucose 80 mg/dL (80-110); HEMOLYSIS < 15 (0-50); Potassium 4.1 mmol/L (3.4-5.1); Sodium 138 mmol/L (137-145); Total Protein 7.9 g/dL (6.3-8.2)
[2021-12-28 13:00] LABS: Erythrocyte Sedimentation Rate 11 MM/HR (0-15)
== END ==
PROVIDERS: PCP Internal Medicine; Referring Provider Family Medicine; Visit Provider Family Medicine
DX: L08.9 Local infection of the skin and subcutaneous tissue, unspecified (principal)
CPT/HCPCS: 36415; 80053; 85025; 85651; 86140; 87070; 87075; 87077; 87147; 87186; 87205

== ENCOUNTER → 2021-12-31 18:53 | Outpatient (CLI) | payer OTHER, SELFPAY ==
[2020-10-09 01:44] VITALS: BMI 39.6
--- NOTE | 2021-12-31 18:54 | DI.MRI.S_ITS ---
PROCEDURE: MR FOOT RT WO/W CON INDICATIONS: Wound to Right third toe TECHNIQUE: Noncontrast sagittal T1 spin echo and T2 fast spin echo with fat saturation, long-axis T1 spin echo and T2 fast spin echo with fat saturation; short-axis T1 spin echo, proton density fast spin echo, and T2 fast spin echo with fat saturation through the forefoot. Post-contrast short axis, long axis, and sagittal T1 spin echo with fat saturation through the forefoot. COMPARISON: [facility], MR, MR FOOT RT WO/W CON, 11/07/2020, 16:14. FINDINGS: Image quality: Excellent. Bones and joints: Postsurgical changes are seen from amputation of the 2nd ray at the level of the metatarsophalangeal joint. There is increased lateral subluxation of the 1st metatarsophalangeal joint and increased hallux valgus when compared to the MRI from 11/08/2019. Prominent rotation of the great toe is seen with lateral angulation of the 1st interphalangeal joint. There is lateral subluxation of the hallux sesamoids. Osseous edema is seen within the 3rd middle phalangeal head adjacent to a skin ulcer, highly suspicious for osteomyelitis. There is flexion of the 3rd proximal interphalangeal joint. Mild edema is seen within the 3rd proximal phalangeal head without significantly decreased T1-weighted signal, most likely reactive. There is flexion deformities and mild internal rotation of the 4th and 5th toes. Soft tissues: Skin ulceration is seen at the distal aspect of the 3rd toe with surrounding soft tissue edema but no significant fluid collection or abscess. Diffusely increased T2-weighted signal and fatty infiltration of the intrinsic foot musculature is consistent with chronic denervation changes. The visualized flexor and extensor tendons are grossly intact. The principal Lisfranc ligament appears intact. IMPRESSION: 1. Skin ulceration at the distal 3rd toe with adjacent signal abnormality in the 3rd middle phalanx is suspicious for osteomyelitis. The 3rd distal phalanx is not well visualized and may be chronically eroded. 2. Postsurgical changes from amputation of the 2nd ray at the 1st metatarsophalangeal joint. 3. Chronic deformities of the 1st, 4th, and 5th toes. There is increased hallux valgus and lateral subluxation of the 1st metatarsophalangeal joint as well as new lateral subluxation of the hallux sesamoids. 4. Chronic denervation changes involving the intrinsic foot musculature. Approved by: Shalom Parry M.D. on 01/01/2022 at 11:42
== END ==
PROVIDERS: PCP Internal Medicine; Referring Provider Family Medicine; Visit Provider Family Medicine
DX: E11.621 Type 2 diabetes mellitus with foot ulcer (principal); M20.11 Hallux valgus (acquired), right foot; M20.61 Acquired deformities of toe(s), unspecified, right foot; Z89.421 Acquired absence of other right toe(s)
CPT/HCPCS: 73720; A9579

== ENCOUNTER → 2022-01-04 09:03 | Outpatient (CLI) | payer OTHER, SELFPAY ==
[2020-10-09 01:44] VITALS: BMI 39.6
== END ==
PROVIDERS: PCP Internal Medicine; Referring Provider Internal Medicine; Visit Provider Family Medicine
DX: E11.621 Type 2 diabetes mellitus with foot ulcer (principal); L97.514 Non-pressure chronic ulcer of other part of right foot with necrosis of bone; E11.42 Type 2 diabetes mellitus with diabetic polyneuropathy; M86.271 Subacute osteomyelitis, right ankle and foot; R60.0 Localized edema; L53.9 Erythematous condition, unspecified; Z79.2 Long term (current) use of antibiotics; L08.9 Local infection of the skin and subcutaneous tissue, unspecified
CPT/HCPCS: 36415; 80053; 85025; 85651; 86140; 99213; 99214

== ENCOUNTER → 2022-01-04 12:42 | Outpatient (CLI) | payer OTHER, SELFPAY ==
[2020-10-09 01:44] VITALS: BMI 39.6
[2022-01-04 13:39] LABS: Add Manual Diff / Slide Review NO; Basophils Absolute Auto 0 /uL (0-100); Basophils Percent Auto 0.3 % (0-2); Eosinophils Absolute Auto 300 /uL (0-450); Hematocrit 43.1 % (41-53); Hemoglobin 13.9 g/dL (13.5-17.5); Lymphocytes Absolute Auto 2600 /uL (1100-4500); Lymphocytes Percent Auto 23.5 % (25-40); Mean Corpuscular HGB Conc 32.3 % (30-36); Mean Corpuscular Hemoglobin 26.9 PG (26-34); Mean Corpuscular Volume 83.1 fL (80-100); Monocytes Absolute Auto 800 /uL (0-900); Neutrophils Absolute Auto 7400 /uL (1500-7000); Neutrophils Percent Auto 66.2 % (50-75); Platelet Count 236 X10^3/uL (150-400); Red Blood Cell Count 5.19 X10^6/uL (4.5-5.9); Red Cell Distribution Width 15.2 % (11.6-14.8); White Blood Cell Count 11.2 X10^3/uL (4.5-11.0)
[2022-01-04 14:06] LABS: Erythrocyte Sedimentation Rate 8 MM/HR (0-15)
[2022-01-04 14:14] LABS: Alanine Aminotransferase 16 IU/L (<50); Albumin 4.1 g/dL (3.5-5.0); Albumin Globulin Ratio 1.2 (1.0-2.8); Alkaline Phosphatase 114 U/L (38-126); Aspartate Aminotransferase 21 IU/L (17-59); Bilirubin Total 0.3 mg/dL (0.2-1.3); Blood Urea Nitrogen 23 mg/dL (9-20); Carbon Dioxide 25 mmol/L (22-32); Chloride 99 mmol/L (98-107); Estimated Glomerular Filt Rate > 60 mL/min (>60); Globulin 3.5 g/dL (1.7-4.1); Glucose 84 mg/dL (80-110); HEMOLYSIS 15 (0-50); Potassium 4.6 mmol/L (3.4-5.1); Sodium 136 mmol/L (137-145); Total Protein 7.6 g/dL (6.3-8.2)
== END ==
PROVIDERS: PCP Internal Medicine; Referring Provider Family Medicine; Visit Provider Family Medicine
DX: L08.9 Local infection of the skin and subcutaneous tissue, unspecified (principal); Z79.2 Long term (current) use of antibiotics
CPT/HCPCS: 36415; 80053; 85025; 85651; 86140

== ENCOUNTER → 2022-01-11 08:43 | Outpatient (CLI) | payer OTHER, SELFPAY ==
[2020-10-09 01:44] VITALS: BMI 39.6
== END ==
PROVIDERS: PCP Internal Medicine; Referring Provider Podiatrist; Visit Provider Family Medicine
DX: E11.621 Type 2 diabetes mellitus with foot ulcer (principal); L08.9 Local infection of the skin and subcutaneous tissue, unspecified; L97.514 Non-pressure chronic ulcer of other part of right foot with necrosis of bone; E11.42 Type 2 diabetes mellitus with diabetic polyneuropathy; Z79.2 Long term (current) use of antibiotics; M86.271 Subacute osteomyelitis, right ankle and foot; D72.829 Elevated white blood cell count, unspecified
CPT/HCPCS: 36415; 80053; 85025; 85651; 86140; 99213; 99214

== ENCOUNTER → 2022-01-11 12:45 | Outpatient (CLI) | payer OTHER, SELFPAY ==
[2020-10-09 01:44] VITALS: BMI 39.6
[2022-01-11 13:51] LABS: Add Manual Diff / Slide Review NO; Basophils Absolute Auto 0 /uL (0-100); Basophils Percent Auto 0.4 % (0-2); Eosinophils Absolute Auto 300 /uL (0-450); Eosinophils Percent Auto 2.8 % (2-4); Hemoglobin 13.8 g/dL (13.5-17.5); Lymphocytes Absolute Auto 2900 /uL (1100-4500); Mean Corpuscular HGB Conc 32.9 % (30-36); Mean Corpuscular Hemoglobin 27.1 PG (26-34); Mean Corpuscular Volume 82.2 fL (80-100); Monocytes Absolute Auto 700 /uL (0-900); Monocytes Percent Auto 6.3 % (3-14); Neutrophils Absolute Auto 7500 /uL (1500-7000); Neutrophils Percent Auto 65.5 % (50-75); Platelet Count 233 X10^3/uL (150-400); Red Blood Cell Count 5.11 X10^6/uL (4.5-5.9); Red Cell Distribution Width 15.3 % (11.6-14.8); White Blood Cell Count 11.4 X10^3/uL (4.5-11.0)
[2022-01-11 14:15] LABS: Erythrocyte Sedimentation Rate 5 MM/HR (0-15)
[2022-01-11 14:26] LABS: Alanine Aminotransferase 16 IU/L (<50); Albumin 4.3 g/dL (3.5-5.0); Albumin Globulin Ratio 1.3 (1.0-2.8); Alkaline Phosphatase 109 U/L (38-126); Aspartate Aminotransferase 23 IU/L (17-59); BUN Creatinine Ratio 20.1 (6-22); Bilirubin Total 0.3 mg/dL (0.2-1.3); Blood Urea Nitrogen 27 mg/dL (9-20); C-Reactive Protein Quant 1.1 mg/dL (<1.0); Calcium 8.9 mg/dL (8.4-10.2); Carbon Dioxide 25 mmol/L (22-32); Chloride 98 mmol/L (98-107); Estimated Glomerular Filt Rate 57 mL/min (>60); Globulin 3.4 g/dL (1.7-4.1); Glucose 85 mg/dL (80-110); HEMOLYSIS < 15 (0-50); Potassium 4.7 mmol/L (3.4-5.1); Sodium 136 mmol/L (137-145); Total Protein 7.7 g/dL (6.3-8.2)
== END ==
PROVIDERS: PCP Internal Medicine; Referring Provider Family Medicine; Visit Provider Family Medicine
DX: E11.621 Type 2 diabetes mellitus with foot ulcer (principal); L08.9 Local infection of the skin and subcutaneous tissue, unspecified
CPT/HCPCS: 36415; 80053; 85025; 85651; 86140

== ENCOUNTER → 2022-01-18 08:44 | Outpatient (CLI) | payer OTHER, SELFPAY ==
[2020-10-09 01:44] VITALS: BMI 39.6
== END ==
PROVIDERS: PCP Internal Medicine; Referring Provider Internal Medicine; Visit Provider Family Medicine
DX: E11.621 Type 2 diabetes mellitus with foot ulcer (principal); Z79.2 Long term (current) use of antibiotics; L97.516 Non-pressure chronic ulcer of other part of right foot with bone involvement without evidence of necrosis; E11.42 Type 2 diabetes mellitus with diabetic polyneuropathy; R60.0 Localized edema; L08.9 Local infection of the skin and subcutaneous tissue, unspecified; M86.271 Subacute osteomyelitis, right ankle and foot; D72.829 Elevated white blood cell count, unspecified; R79.82 Elevated C-reactive protein (CRP)
CPT/HCPCS: 36415; 80053; 85025; 85651; 86140; 99213; 99214

== ENCOUNTER → 2022-01-18 09:28 | Outpatient (CLI) | payer OTHER, SELFPAY ==
[2020-10-09 01:44] VITALS: BMI 39.6
[2022-01-18 10:09] LABS: Add Manual Diff / Slide Review NO; Basophils Absolute Auto 0 /uL (0-100); Basophils Percent Auto 0.5 % (0-2); Eosinophils Absolute Auto 400 /uL (0-450); Hematocrit 45.6 % (41-53); Hemoglobin 15.3 g/dL (13.5-17.5); Lymphocytes Absolute Auto 2700 /uL (1100-4500); Mean Corpuscular HGB Conc 33.6 % (30-36); Mean Corpuscular Hemoglobin 27.4 PG (26-34); Mean Corpuscular Volume 81.7 fL (80-100); Monocytes Absolute Auto 600 /uL (0-900); Neutrophils Absolute Auto 6200 /uL (1500-7000); Neutrophils Percent Auto 62.5 % (50-75); Platelet Count 225 X10^3/uL (150-400); Red Blood Cell Count 5.58 X10^6/uL (4.5-5.9); Red Cell Distribution Width 15.5 % (11.6-14.8); White Blood Cell Count 9.9 X10^3/uL (4.5-11.0)
[2022-01-18 10:21] LABS: Alanine Aminotransferase 15 IU/L (<50); Albumin 4.4 g/dL (3.5-5.0); Albumin Globulin Ratio 1.1 (1.0-2.8); Alkaline Phosphatase 86 U/L (38-126); Aspartate Aminotransferase 21 IU/L (17-59); Bilirubin Total 0.5 mg/dL (0.2-1.3); Blood Urea Nitrogen 22 mg/dL (9-20); C-Reactive Protein Quant 0.9 mg/dL (<1.0); Calcium 9.4 mg/dL (8.4-10.2); Carbon Dioxide 28 mmol/L (22-32); Chloride 97 mmol/L (98-107); Estimated Glomerular Filt Rate > 60 mL/min (>60); Glucose 87 mg/dL (80-110); HEMOLYSIS < 15 (0-50); Potassium 4.1 mmol/L (3.4-5.1); Sodium 139 mmol/L (137-145); Total Protein 8.4 g/dL (6.3-8.2)
[2022-01-18 10:28] LABS: Erythrocyte Sedimentation Rate 6 MM/HR (0-15)
== END ==
PROVIDERS: PCP Internal Medicine; Referring Provider Family Medicine; Visit Provider Family Medicine
DX: Z79.2 Long term (current) use of antibiotics (principal); E11.621 Type 2 diabetes mellitus with foot ulcer
CPT/HCPCS: 36415; 80053; 85025; 85651; 86140

== ENCOUNTER → 2022-01-25 08:57 | Outpatient (CLI) | payer OTHER, SELFPAY ==
[2020-10-09 01:44] VITALS: BMI 39.6
== END ==
PROVIDERS: PCP Internal Medicine; Referring Provider Podiatrist; Visit Provider Family Medicine
DX: E11.621 Type 2 diabetes mellitus with foot ulcer (principal); Z79.2 Long term (current) use of antibiotics; L97.516 Non-pressure chronic ulcer of other part of right foot with bone involvement without evidence of necrosis; E11.42 Type 2 diabetes mellitus with diabetic polyneuropathy; M86.271 Subacute osteomyelitis, right ankle and foot; Z89.421 Acquired absence of other right toe(s); R60.0 Localized edema; L53.9 Erythematous condition, unspecified
CPT/HCPCS: 11042; 36415; 80053; 83036; 85025; 85651; 86140; 99214

== ENCOUNTER → 2022-01-25 12:32 | Outpatient (CLI) | payer OTHER, SELFPAY ==
[2020-10-09 01:44] VITALS: BMI 39.6
[2022-01-25 14:04] LABS: Add Manual Diff / Slide Review NO; Basophils Absolute Auto 0 /uL (0-100); Basophils Percent Auto 0.3 % (0-2); Eosinophils Absolute Auto 400 /uL (0-450); Eosinophils Percent Auto 3.8 % (2-4); Hematocrit 42.8 % (41-53); Lymphocytes Absolute Auto 2300 /uL (1100-4500); Mean Corpuscular HGB Conc 32.7 % (30-36); Mean Corpuscular Hemoglobin 26.9 PG (26-34); Mean Corpuscular Volume 82.4 fL (80-100); Monocytes Absolute Auto 600 /uL (0-900); Monocytes Percent Auto 5.3 % (3-14); Neutrophils Absolute Auto 7200 /uL (1500-7000); Neutrophils Percent Auto 68.6 % (50-75); Platelet Count 223 X10^3/uL (150-400); Red Blood Cell Count 5.19 X10^6/uL (4.5-5.9); Red Cell Distribution Width 15.5 % (11.6-14.8); White Blood Cell Count 10.5 X10^3/uL (4.5-11.0)
[2022-01-25 14:10] LABS: Hemoglobin A1C% w Est Avg Glu 5.8 % (4.0-6.0)
[2022-01-25 14:21] LABS: Erythrocyte Sedimentation Rate 11 MM/HR (0-15)
[2022-01-25 14:23] LABS: Alanine Aminotransferase 13 IU/L (<50); Albumin 4.2 g/dL (3.5-5.0); Albumin Globulin Ratio 1.3 (1.0-2.8); Alkaline Phosphatase 88 U/L (38-126); Aspartate Aminotransferase 20 IU/L (17-59); BUN Creatinine Ratio 22.4 (6-22); Bilirubin Total 0.4 mg/dL (0.2-1.3); Blood Urea Nitrogen 28 mg/dL (9-20); C-Reactive Protein Quant 0.7 mg/dL (<1.0); Calcium 8.9 mg/dL (8.4-10.2); Carbon Dioxide 24 mmol/L (22-32); Chloride 101 mmol/L (98-107); Estimated Glomerular Filt Rate > 60 mL/min (>60); Globulin 3.3 g/dL (1.7-4.1); Glucose 75 mg/dL (80-110); HEMOLYSIS < 15 (0-50); Sodium 138 mmol/L (137-145); Total Protein 7.5 g/dL (6.3-8.2)
== END ==
PROVIDERS: PCP Internal Medicine; Referring Provider Family Medicine; Visit Provider Family Medicine
DX: Z79.2 Long term (current) use of antibiotics (principal)
CPT/HCPCS: 36415; 80053; 83036; 85025; 85651; 86140

== ENCOUNTER → 2022-02-01 08:39 | Outpatient (CLI) | payer OTHER, SELFPAY ==
[2020-10-09 01:44] VITALS: BMI 39.6
== END ==
PROVIDERS: PCP Internal Medicine; Referring Provider Internal Medicine; Visit Provider Family Medicine
DX: E11.621 Type 2 diabetes mellitus with foot ulcer (principal); L97.516 Non-pressure chronic ulcer of other part of right foot with bone involvement without evidence of necrosis; E11.42 Type 2 diabetes mellitus with diabetic polyneuropathy; Z79.2 Long term (current) use of antibiotics; M86.271 Subacute osteomyelitis, right ankle and foot
CPT/HCPCS: 11042; 36415; 80053; 85025; 85651; 86140; 99213; 99214

== ENCOUNTER → 2022-02-01 09:47 | Outpatient (CLI) | payer OTHER, SELFPAY ==
[2020-10-09 01:44] VITALS: BMI 39.6
[2022-02-01 10:19] LABS: Add Manual Diff / Slide Review NO; Basophils Absolute Auto 100 /uL (0-100); Basophils Percent Auto 0.7 % (0-2); Eosinophils Absolute Auto 300 /uL (0-450); Eosinophils Percent Auto 3.3 % (2-4); Hematocrit 43.4 % (41-53); Hemoglobin 14.4 g/dL (13.5-17.5); Lymphocytes Absolute Auto 2100 /uL (1100-4500); Lymphocytes Percent Auto 23.8 % (25-40); Mean Corpuscular HGB Conc 33.1 % (30-36); Mean Corpuscular Hemoglobin 26.9 PG (26-34); Mean Corpuscular Volume 81.3 fL (80-100); Monocytes Absolute Auto 600 /uL (0-900); Monocytes Percent Auto 6.1 % (3-14); Neutrophils Absolute Auto 5900 /uL (1500-7000); Neutrophils Percent Auto 66.1 % (50-75); Platelet Count 212 X10^3/uL (150-400); Red Blood Cell Count 5.34 X10^6/uL (4.5-5.9); Red Cell Distribution Width 15.6 % (11.6-14.8)
[2022-02-01 10:39] LABS: Erythrocyte Sedimentation Rate 10 MM/HR (0-15)
[2022-02-01 10:48] LABS: Alanine Aminotransferase 14 IU/L (<50); Albumin 4.1 g/dL (3.5-5.0); Albumin Globulin Ratio 1.1 (1.0-2.8); Alkaline Phosphatase 85 U/L (38-126); Aspartate Aminotransferase 20 IU/L (17-59); BUN Creatinine Ratio 19.4 (6-22); Bilirubin Total 0.5 mg/dL (0.2-1.3); Blood Urea Nitrogen 20 mg/dL (9-20); C-Reactive Protein Quant 1.2 mg/dL (<1.0); Calcium 9.2 mg/dL (8.4-10.2); Carbon Dioxide 28 mmol/L (22-32); Chloride 101 mmol/L (98-107); Estimated Glomerular Filt Rate > 60 mL/min (>60); Globulin 3.6 g/dL (1.7-4.1); Glucose 124 mg/dL (80-110); HEMOLYSIS < 15 (0-50); Potassium 4.7 mmol/L (3.4-5.1); Sodium 140 mmol/L (137-145); Total Protein 7.7 g/dL (6.3-8.2)
== END ==
PROVIDERS: PCP Internal Medicine; Referring Provider Family Medicine; Visit Provider Family Medicine
DX: Z79.2 Long term (current) use of antibiotics (principal)
CPT/HCPCS: 36415; 80053; 85025; 85651; 86140

== ENCOUNTER → 2022-02-08 08:41 | Outpatient (CLI) | payer OTHER, SELFPAY ==
[2020-10-09 01:44] VITALS: BMI 39.6
== END ==
PROVIDERS: PCP Internal Medicine; Referring Provider Podiatrist; Visit Provider Family Medicine
DX: E11.621 Type 2 diabetes mellitus with foot ulcer (principal); Z79.2 Long term (current) use of antibiotics; L97.516 Non-pressure chronic ulcer of other part of right foot with bone involvement without evidence of necrosis; L08.9 Local infection of the skin and subcutaneous tissue, unspecified; E11.40 Type 2 diabetes mellitus with diabetic neuropathy, unspecified; R60.0 Localized edema
CPT/HCPCS: 11042; 36415; 80053; 85025; 85651; 86140; 99214

== ENCOUNTER → 2022-02-08 09:29 | Outpatient (CLI) | payer OTHER, SELFPAY ==
[2020-10-09 01:44] VITALS: BMI 39.6
[2022-02-08 10:36] LABS: Add Manual Diff / Slide Review NO; Basophils Absolute Auto 0 /uL (0-100); Basophils Percent Auto 0.4 % (0-2); Eosinophils Absolute Auto 300 /uL (0-450); Eosinophils Percent Auto 3.4 % (2-4); Hematocrit 43.7 % (41-53); Hemoglobin 14.3 g/dL (13.5-17.5); Lymphocytes Absolute Auto 2300 /uL (1100-4500); Lymphocytes Percent Auto 23.3 % (25-40); Mean Corpuscular HGB Conc 32.7 % (30-36); Mean Corpuscular Hemoglobin 26.7 PG (26-34); Mean Corpuscular Volume 81.7 fL (80-100); Monocytes Absolute Auto 600 /uL (0-900); Monocytes Percent Auto 5.8 % (3-14); Neutrophils Absolute Auto 6600 /uL (1500-7000); Neutrophils Percent Auto 67.1 % (50-75); Platelet Count 217 X10^3/uL (150-400); Red Blood Cell Count 5.35 X10^6/uL (4.5-5.9); Red Cell Distribution Width 15.4 % (11.6-14.8); White Blood Cell Count 9.8 X10^3/uL (4.5-11.0)
[2022-02-08 11:16] LABS: HEMOLYSIS < 15 (0-50); Potassium 4.4 mmol/L (3.4-5.1)
[2022-02-08 11:18] LABS: Alanine Aminotransferase 12 IU/L (<50); Albumin 4.2 g/dL (3.5-5.0); Albumin Globulin Ratio 1.2 (1.0-2.8); Alkaline Phosphatase 90 U/L (38-126); Aspartate Aminotransferase 19 IU/L (17-59); BUN Creatinine Ratio 16.5 (6-22); Bilirubin Total 0.4 mg/dL (0.2-1.3); Blood Urea Nitrogen 20 mg/dL (9-20); Calcium 9.6 mg/dL (8.4-10.2); Carbon Dioxide 26 mmol/L (22-32); Chloride 102 mmol/L (98-107); Estimated Glomerular Filt Rate > 60 mL/min (>60); Globulin 3.5 g/dL (1.7-4.1); Glucose 93 mg/dL (80-110); Sodium 137 mmol/L (137-145); Total Protein 7.7 g/dL (6.3-8.2)
[2022-02-08 11:42] LABS: Erythrocyte Sedimentation Rate 12 MM/HR (0-15)
== END ==
PROVIDERS: PCP Internal Medicine; Referring Provider Family Medicine; Visit Provider Family Medicine
DX: Z79.2 Long term (current) use of antibiotics (principal)
CPT/HCPCS: 36415; 80053; 85025; 85651; 86140

== ENCOUNTER → 2022-02-15 08:41 | Outpatient (CLI) | payer OTHER, SELFPAY ==
[2020-10-09 01:44] VITALS: BMI 39.6
== END ==
PROVIDERS: PCP Internal Medicine; Referring Provider Podiatrist; Visit Provider Surgery
DX: E11.621 Type 2 diabetes mellitus with foot ulcer (principal); L97.516 Non-pressure chronic ulcer of other part of right foot with bone involvement without evidence of necrosis; E11.42 Type 2 diabetes mellitus with diabetic polyneuropathy; Z79.2 Long term (current) use of antibiotics; R60.0 Localized edema; M86.271 Subacute osteomyelitis, right ankle and foot; E11.51 Type 2 diabetes mellitus with diabetic peripheral angiopathy without gangrene
CPT/HCPCS: 11042; 36415; 80053; 85025; 85651; 86140; 99212

== ENCOUNTER → 2022-02-15 09:14 | Outpatient (CLI) | payer OTHER, SELFPAY ==
[2020-10-09 01:44] VITALS: BMI 39.6
[2022-02-15 09:45] LABS: Add Manual Diff / Slide Review NO; Basophils Absolute Auto 0 /uL (0-100); Basophils Percent Auto 0.3 % (0-2); Eosinophils Absolute Auto 400 /uL (0-450); Eosinophils Percent Auto 4.2 % (2-4); Hematocrit 42.1 % (41-53); Hemoglobin 13.9 g/dL (13.5-17.5); Lymphocytes Absolute Auto 2500 /uL (1100-4500); Lymphocytes Percent Auto 27.8 % (25-40); Mean Corpuscular HGB Conc 32.9 % (30-36); Mean Corpuscular Hemoglobin 26.9 PG (26-34); Mean Corpuscular Volume 81.6 fL (80-100); Monocytes Absolute Auto 600 /uL (0-900); Monocytes Percent Auto 7.1 % (3-14); Neutrophils Absolute Auto 5400 /uL (1500-7000); Neutrophils Percent Auto 60.6 % (50-75); Platelet Count 218 X10^3/uL (150-400); Red Blood Cell Count 5.16 X10^6/uL (4.5-5.9); Red Cell Distribution Width 15.4 % (11.6-14.8); White Blood Cell Count 8.8 X10^3/uL (4.5-11.0)
[2022-02-15 10:19] LABS: Erythrocyte Sedimentation Rate 11 MM/HR (0-15)
[2022-02-16 15:21] LABS: Alanine Aminotransferase 12 IU/L (<50); Albumin 3.9 g/dL (3.5-5.0); Albumin Globulin Ratio 1.3 (1.0-2.8); Alkaline Phosphatase 98 U/L (38-126); Aspartate Aminotransferase 17 IU/L (17-59); BUN Creatinine Ratio 17.7 (6-22); Bilirubin Total 0.4 mg/dL (0.2-1.3); Blood Urea Nitrogen 23 mg/dL (9-20); Calcium 8.9 mg/dL (8.4-10.2); Carbon Dioxide 26 mmol/L (22-32); Chloride 98 mmol/L (98-107); Estimated Glomerular Filt Rate 59 mL/min (>60); Glucose 92 mg/dL (80-110); HEMOLYSIS < 15 (0-50); Potassium 4.3 mmol/L (3.4-5.1); Sodium 137 mmol/L (137-145); Total Protein 6.9 g/dL (6.3-8.2)
== END ==
PROVIDERS: PCP Internal Medicine; Referring Provider Surgery; Visit Provider Surgery
DX: E11.621 Type 2 diabetes mellitus with foot ulcer (principal)
CPT/HCPCS: 36415; 80053; 85025; 85651; 86140

== ENCOUNTER → 2022-02-22 08:46 | Outpatient (CLI) | payer OTHER, SELFPAY ==
[2020-10-09 01:44] VITALS: BMI 39.6
== END ==
PROVIDERS: PCP Internal Medicine; Referring Provider Podiatrist; Visit Provider Surgery
DX: E11.621 Type 2 diabetes mellitus with foot ulcer (principal); L97.516 Non-pressure chronic ulcer of other part of right foot with bone involvement without evidence of necrosis; M86.271 Subacute osteomyelitis, right ankle and foot; E11.40 Type 2 diabetes mellitus with diabetic neuropathy, unspecified; Z79.2 Long term (current) use of antibiotics
CPT/HCPCS: 36415; 80053; 85025; 85651; 86140; 97597; 99212

== ENCOUNTER → 2022-02-22 09:18 | Outpatient (CLI) | payer OTHER, SELFPAY ==
[2020-10-09 01:44] VITALS: BMI 39.6
[2022-02-22 09:50] LABS: Add Manual Diff / Slide Review NO; Basophils Absolute Auto 0 /uL (0-100); Basophils Percent Auto 0.4 % (0-2); Eosinophils Absolute Auto 400 /uL (0-450); Eosinophils Percent Auto 3.5 % (2-4); Hematocrit 44.3 % (41-53); Lymphocytes Absolute Auto 2800 /uL (1100-4500); Lymphocytes Percent Auto 27.8 % (25-40); Mean Corpuscular HGB Conc 33.8 % (30-36); Mean Corpuscular Hemoglobin 27.2 PG (26-34); Mean Corpuscular Volume 80.6 fL (80-100); Monocytes Absolute Auto 600 /uL (0-900); Monocytes Percent Auto 5.8 % (3-14); Neutrophils Absolute Auto 6300 /uL (1500-7000); Neutrophils Percent Auto 62.5 % (50-75); Platelet Count 241 X10^3/uL (150-400); Red Blood Cell Count 5.49 X10^6/uL (4.5-5.9); Red Cell Distribution Width 15.3 % (11.6-14.8); White Blood Cell Count 10.1 X10^3/uL (4.5-11.0)
[2022-02-22 09:58] LABS: Erythrocyte Sedimentation Rate 6 MM/HR (0-15)
[2022-02-22 10:02] LABS: Alanine Aminotransferase 13 IU/L (<50); Albumin 4.3 g/dL (3.5-5.0); Albumin Globulin Ratio 1.4 (1.0-2.8); Alkaline Phosphatase 99 U/L (38-126); Aspartate Aminotransferase 18 IU/L (17-59); BUN Creatinine Ratio 19.3 (6-22); Bilirubin Total 0.5 mg/dL (0.2-1.3); Blood Urea Nitrogen 27 mg/dL (9-20); C-Reactive Protein Quant 0.8 mg/dL (<1.0); Calcium 9.3 mg/dL (8.4-10.2); Carbon Dioxide 24 mmol/L (22-32); Chloride 100 mmol/L (98-107); Estimated Glomerular Filt Rate 54 mL/min (>60); Globulin 3.1 g/dL (1.7-4.1); Glucose 90 mg/dL (80-110); HEMOLYSIS < 15 (0-50); Potassium 4.5 mmol/L (3.4-5.1); Sodium 138 mmol/L (137-145); Total Protein 7.4 g/dL (6.3-8.2)
== END ==
PROVIDERS: PCP Internal Medicine; Referring Provider Surgery; Visit Provider Surgery
DX: Z79.2 Long term (current) use of antibiotics (principal)
CPT/HCPCS: 36415; 80053; 85025; 85651; 86140

== ENCOUNTER → 2022-02-25 09:20 | Outpatient (CLI) | payer OTHER, SELFPAY ==
[2020-10-09 01:44] VITALS: BMI 39.6
== END ==
PROVIDERS: PCP Internal Medicine; Referring Provider Internal Medicine; Visit Provider Surgery
DX: E11.621 Type 2 diabetes mellitus with foot ulcer (principal); L97.516 Non-pressure chronic ulcer of other part of right foot with bone involvement without evidence of necrosis; R60.0 Localized edema
CPT/HCPCS: 99212

== ENCOUNTER → 2022-03-01 08:31 | Outpatient (CLI) | payer OTHER, SELFPAY ==
[2020-10-09 01:44] VITALS: BMI 39.6
== END ==
PROVIDERS: PCP Internal Medicine; Referring Provider Podiatrist; Visit Provider Surgery
DX: E11.621 Type 2 diabetes mellitus with foot ulcer (principal); L97.514 Non-pressure chronic ulcer of other part of right foot with necrosis of bone; R60.0 Localized edema; L53.9 Erythematous condition, unspecified; E11.51 Type 2 diabetes mellitus with diabetic peripheral angiopathy without gangrene; E11.40 Type 2 diabetes mellitus with diabetic neuropathy, unspecified; M79.671 Pain in right foot; L97.516 Non-pressure chronic ulcer of other part of right foot with bone involvement without evidence of necrosis; E11.42 Type 2 diabetes mellitus with diabetic polyneuropathy; Z79.2 Long term (current) use of antibiotics; M86.271 Subacute osteomyelitis, right ankle and foot; Z89.421 Acquired absence of other right toe(s)
CPT/HCPCS: 97597; 99213

== ENCOUNTER → 2022-03-04 08:53 | Outpatient (CLI) | payer OTHER, SELFPAY ==
[2020-10-09 01:44] VITALS: BMI 39.6
== END ==
PROVIDERS: PCP Internal Medicine; Referring Provider Internal Medicine; Visit Provider Surgery
DX: E11.621 Type 2 diabetes mellitus with foot ulcer (principal); L97.516 Non-pressure chronic ulcer of other part of right foot with bone involvement without evidence of necrosis; R60.0 Localized edema
CPT/HCPCS: 99213

== ENCOUNTER → 2022-03-09 08:47 | Outpatient (CLI) | payer OTHER, SELFPAY ==
[2020-10-09 01:44] VITALS: BMI 39.6
== END ==
PROVIDERS: PCP Internal Medicine; Referring Provider Podiatrist; Visit Provider Surgery
DX: E11.621 Type 2 diabetes mellitus with foot ulcer (principal); L97.512 Non-pressure chronic ulcer of other part of right foot with fat layer exposed; R60.0 Localized edema; L84 Corns and callosities
CPT/HCPCS: 99213

== ENCOUNTER → 2022-03-16 08:41 | Outpatient (CLI) | payer OTHER, SELFPAY ==
[2020-10-09 01:44] VITALS: BMI 39.6
--- NOTE | 2022-03-16 | OV.WND_ITS ---
Progress Note Details Patient Name: Hunter Mendez Patient Number: [id number] Patient Date of : 1950 Patient Subjective Date: 03/16/2022 Clinician: Kymberly Martinez Physician / Basket Mender:Julien Joyner Chief Complaint This information was obtained from the patient, chart Wound to right foot Allergies No Known Drug Allergies HPI This information was obtained from the patient The following HPI elements were documented for the patient's wound: Location: R 3rd toe Duration: 09/02 Context: diabetic ulcer with osteo The patient is a 71-year-old male with type 2 diabetes, neuropathy, and acquired foot deformity who returns today for followup of Tavares 3 diabetic ulcer right 3rd toe with osteomyelitis. Patient has been receiving dressing changes with Hydrofera blue twice a week and received 9 weeks of clindamycin and Levaquin. He has been approved for receiving hyperbaric oxygen therapy however he is still awaiting word regarding financial assistance for his copayments and should receive word in the near future. The patient had previously been seen by podiatry who had offered proceeding with TMA however patient prefers to continue efforts for salvaging the right 3rd toe. On today's visit patient is without complaints. He reports no significant drainage nor has he noted any redness, swelling, or fever. He has had good control of blood sugars and reports no significant changes in overall health since previous visit. The patient is taking probiotics and denies having any diarrhea. Past history is remarkable for previous right 2nd toe amputation as well as multiple previous diabetic foot ulcers. Patient has not yet been seen by nephrology. Patient has been off antibiotics for the past 2 weeks. Previous workup: 02/22/22: WBC 10.1, hemoglobin 15.0, ESR 6, BUN 27, creatinine 1.40, CRP 0.8 02/15/22: WBC 8.8, hemoglobin 13.9, ESR 11, BUN 23, creatinine 1.3, GFR 59 02/02/22: DOMINICK on left 0.78, right 1.09 01/25/21: A1c 5.8. WBC 10.5. ESR 11. CRP 0.7. GFR > 60. CMP and CBC otherwise without significant abnormality. 01/18/22: WBC 9.9, ESR 6, CRP 0.9, GFR > 60 01/11/22: WBC 11.4. ESR 5. CRP 1.1. GFR 57. CMP and CBC otherwise without significant abnormality. 01/04/22: WBC 11.2. ESR 8. CRP 1.0. CMP and CBC otherwise without significant abnormality. 12/31/21: MR FOOT RT WO/W CON 1. Skin ulceration at the distal 3rd toe with adjacent signal abnormality in the 3rd middle phalanx is suspicious for osteomyelitis. The 3rd distal phalanx is not well visualized and may be chronically eroded. 12/28/21: WBC 12.7. ESR 11. CRP 1.4. CMP and CBC otherwise without significant abnormality. 12/28/21: R 3rd toe: GS neg. Cx grew light growth of mixed skin rebel and MSSA (R-clindamycin). Anaerobic cx NG. 12/14/21: WBC still normal but CRP up to 1.7. GFR > 60. CMP otherwise without significant abnormality. 12/14/21: WBC 9.4, CRP 1.1. GFR > 60. CMP otherwise without significant abnormality. 12/07/21: R 3rd toe, bone tissue. Findings are not entirely specific; however, they appear reactive/degenerative in nature. Diagnostic features of osteomyelitis were not identified in sections examined. 11/30/21: WBC 9.7, CRP 1.1. GFR > 60. CMP otherwise without significant abnormality. 11/30/21: R toe. GS neg. Cx grew MRSE (R-FQ's, TMP/SMX; S-clinda, doxy, linezolid). 11/23/21: WBC 8.0, CRP 1.3. ESR 14. GFR > 60. CMP otherwise without significant abnormality. 11/17/21: WBC 8.1, CRP 1.5. GFR > 60. CMP otherwise without significant abnormality. 11/09/21: WBC 10.3, CRP 1.3. GFR > 60. CMP otherwise without significant abnormality. 11/02/21: WBC 10.7, CRP 0.9. GFR 54. CMP otherwise without significant abnormality. 10/19/21: R 3rd toe, bone. Findings show interspersed marrow fibrosis, e/o remodeling, and mild chronic inflammation. These changes appear to be reactive/degenerative in nature. Diagnostic features of osteomyelitis are not identified. 10/19/21: WBC 11.4, CRP 1.3. GFR > 60. CMP otherwise without significant abnormality. 10/19/21: R 3rd toe, bone. GS neg. Cx grew MRSE (R-TMP/SMX, S-doxycycline). 10/12/21: WBC 11.8, CRP 2.5. GFR > 60. CMP otherwise without significant abnormality. 09/29/21: WBC 12.3. Otherwise, unremarkable. GFR > 60. CRP 1.6 09/22/21: WBC 10.3. GFR 59. CRP 2.4. 09/15/21: WBC 13.2. Otherwise, unremarkable. Potassium down to 4.9. Creatinine down to 1.12. GFR to > 60. CRP stable at 1.1 09/07/21: R 5th distal phalanx (bone) c/w acute osteomyelitis. 09/07/21: Noted for WBC 14.3, ESR 37, CRP 1.1, K+ 5.2, GFR 40. 09/07/21: R 5th distal phalanx (bone) grew dias-sensitive MSSA. Medical History This information was obtained from the patient Patient has a medical history of: Thyrotoxicosis Ralph's esophagus Diabetes, type 2 (01/02/21 A1C: 6.4%) Diabetic ulcer (left 3rd toe) Chronic osteomyelitis (left 3rd toe) Hypothyroidism allergic rhinosinusitis Diverticulitis excessive daytime sleepiness Gastro Esoph. Reflux Disease (GERD) history of alcohol dependence history of alcohol hepitis history of thyrotoxicosis 1971 Hypertension insomnia due to medical condition nocturnal hypoxemia obesity obstructive sleep apnea ,adult snoring type 2 diabetes mellitus without complications Surgical History This information was obtained from the patient Patient has a surgical history of: Bowel resection Thyroidectomy amputated 2nd toe RLE Melanoma removal (right ear with skin graft from cheek) Additional Information Does patient have a history of Cancer? Yes? Complete all questions.: No OBJECTIVE Wound Assessment(s) Wound #7 Right Toe - Third is a chronic Tavares Grade 3 Diabetic Ulcer and has received a status of Not Healed. Initial wound encounter measurements are 0.2cm length x 0.2cm width x 0.2cm depth, with an area of 0.04 sq cm and a volume of 0.008 cubic cm. Adipose is exposed. No tunneling has been noted. No sinus tract has been noted. No undermining has been noted. There is a scant amount of serosanguineous drainage noted which has no odor. The patient reports a wound pain of level 0/10. The wound margin is unattached. Wound bed has Yes epithelialization, No eschar, Yes slough, Yes bright red, firm granulation. The periwound skin exhibited: Edema, Callus, Dry/Scaly. The periwound skin did not exhibit: Erythema. The temperature of the periwound skin is Warm. Periwound skin does not exhibit signs or symptoms of infection. Local Pulse is Palpable. Vitals Height/Length: 72 in (182.88 cm), Weight: 248 lbs (112.73 kgs), BMI: 33.6, Temperature: 97.5 F (36.39 C), Pulse: 66 bpm, Respiratory Rate: 16 breaths/min, Blood Pressure: 133/79 mmHg, Pulse Oximetry: 99 %. Vital Signs Notes: CBG per pt 113 Physical Exam Constitutional Vital signs reviewed and noted. Well developed, well nourished, and in no acute distress. Alert and oriented x3. Respiratory: Even respirations without use of accessory muscles. No intercoastal retractions noted. Even and non labored respiration. Integumentary (Hair, Skin) See wound assessment. Neurological: decreased lower extremity sensation. Psychiatric: Orientation to time, place and person: Normal affect with normal thought pattern. Additional Information The patient's potential to heal is: fair. Limited to breakdown of skin: No ASSESSMENT Active Problems ICD-10 (Encounter Diagnosis) E11.621 - Type 2 diabetes mellitus with foot ulcer (Encounter Diagnosis) L97.516 - Non-pressure chronic ulcer of other part of right foot with bone involvement without evidence of necrosis (Encounter Diagnosis) E11.42 - Type 2 diabetes mellitus with diabetic polyneuropathy (Encounter Diagnosis) Z79.2 - long-term (current) use of antibiotics (Encounter Diagnosis) M86.271 - Subacute osteomyelitis, right ankle and foot (Encounter Diagnosis) I73.9 - Peripheral vascular disease, unspecified General Notes: Tavares grade 3 DFUs of the R 3rd toe. MRI consistent with osteomyelitis. Bone tissue has grown MRSE, ulcer appears improved today. Patient completed 9 weeks of clindamycin and Levaquin. CRP, WBC, and ESR are normal. Cr up slightly to 1.4. Patient afebrile and not toxic. The following factors have been identified that may impair wound healing: Devitalized tissue. Infection/Osteomyelitis Pressure Diabetes (under excellent control) Foot deformities Neuropathy Advanced age Goals: Remove devitalized tissue. Treat infection/osteomyelitis. Redistribute pressure. Manage comorbidities. Repair/Regenerate tissue. Wound closure. Plan: Selective debridement, continue dressing changes with Hydrofera blue, await word regarding financial assistance before starting HBO therapy, continue antibiotics, await nephrology consult regarding elevated BUN and creatinine. Repeat labs today. PROCEDURES Wound #7 Wound #7 (Diabetic Ulcer) is located on the right toe - third. A selective debridement with a total area debrided of 0.2 sq cm was performed by Julien Joyner MD. to remove devitalized tissue: biofilm, callus, exudate, and slough. The following instrument(s) were used: curette. No anesthetic was required due to loss of sensation. A time out was conducted prior to the start of the procedure. A minimal amount of bleeding was controlled with pressure. The procedure was tolerated well with a pain level of 0 throughout and a pain level of 0 following the procedure. Post Debridement Measurements: 0.4cm length x 0.5cm width x 0.4cm depth; with an area of 0.2 sq cm and a volume of 0.08 cubic cm; PLAN Wound Orders: Wound #7 Right Toe - Third Hygiene May shower with wound protected, using a cast protector or plastic bag and tape Cleanser Cleanse Wound with normal saline Topical Treatments Other order - hydrogel to base Dressings Pack wound - Hydrofera Blue Cover and secure with - Foam and tape Change Dressing - Next visit Additional Orders: Off-Loading Keep weight off - Right foot Use/Wear when walking - Forefoot offloading shoe Dietary Increased protein Follow-Up Appointments Return Appointment - One week Return for Nurse visit - Tuesday Other information: If you develop fever, chills, increased pain, drainage, redness or swelling please call our office. If after hours, respond to the ER. Should you experience any significant changes in your wound(s) or have any questions regarding your home care instructions please contact the wound center @ [phone]. If after hours, contact your primary care physician or go to the hospital emergency room. Physician Review: Reviewed and evaluated labs. Discussed the Plan of Care @ bedside with - patient Reviewed hospital records. I, as the physician, have reviewed the orders scribed by the center RN's and agree. Scribing Attestation I attest, as the nurse, that I scribed these orders for the physician. Laboratory: Other Labs - CBC, CMP, CRP, ESR Plan of Care: 01. ENSURE/ESTABLISH OPTIMAL BLOOD FLOW : - Complete lower extremity assessment - Perform non-invasive vascular testing (i.e. DOMINICK) and document findings. Consider repeating when wound healing <40% after 30 days of wound care. 02. ASSESS FOR/TREAT INFECTION : - Evaluate for signs and symptoms of infection and document findings. 03. DEBRIDE WEEKLY OR MORE OFTEN PRN : - Evaluate patient in center weekly to assess wound bed and margins for need for debridement. - Debridement by any method to remove devitalized/necrotic tissue to promote healing and prevent further complications. Goal is to stimulate and/or maintain acute phase of wound healing by reducing bacterial burden and devitalized/non-viable tissue. 04. OPTIMIZE GLUCOSE CONTROL and NUTRITION : - Order/review pertinent labs to evaluate renal function, glucose control, and nutritional status. - Complete a nutrition risk assessment. 05. OFFLOADING PLAN : - Advise patient to offload the foot ulcer. (i.e. half shoe, surgical shoe, insert, custom shoe, felt and foam, cam walker, multipodus splint, total contact cast, bi-valve cast, posterior splint). - offloading shoe - Assess tolerance and compliance of offloading. 06. OPTIMIZE HOST FACTORS: - Assess and review patient history for wound etiology, co-morbid conditions, medication regime, and smoking history. - Assess lifestyle factors such as smoking, alcohol/drug abuse, eating habits/malnutrition and activity level. 07. DRESSING SELECTION : - Evaluate for dressing-related factors, such as availability, wear time, adaptability and use to better optimize wound healing and patient compliance. - Educate the patient/family/caregiver to monitor dressing daily. Change dressing only as needed but never less frequently than weekly so that wound bed can be reassessed. 08. ADVANCED MODALITIES : - Evaluate for appropriateness of Hyperbaric Oxygen Therapy. 09. FALL PREVENTION : - Inform patient and family of risk of falling and discuss prevention strategies. 10. PAIN MANAGEMENT : - Complete pain assessment - Prepare patient to set reasonable expectations prior to procedure. - Distract the patient with music or conversation during procedure. - Instruct the patient to call ???time-out??? if pain is too intense during procedure. 11. MEASURABLE GOALS for Wound Healing and/or Hyperbaric Oxygen Therapy : - Less Drainage - Decrease Wound Dimensions - Wound Closure - Reduce/Removal of Necrotic/Devitalized Tissue - debridements in clinic as necessary, deemed by Dr. - Promote angiogenesis - consideration/evaluation for HBO - Improve oxygenation - consideration/evaluation for HBO - To improve potential to heal - consideration/evaluation for HBO 12. DURATION/FREQUENCY of Wound Care Visits : - 2x weekly for 30 days 13. OSTOMY : - Reviewed, not applicable Electronic Signature(s) Signed By: Date: Julien Joyner MD 03/16/2022 09:31:53 (PT) Entered By: Julien Joyner MD on 03/16/2022 09:31:09 (PT)
== END ==
PROVIDERS: PCP Internal Medicine; Referring Provider Podiatrist; Visit Provider Surgery
DX: E11.621 Type 2 diabetes mellitus with foot ulcer (principal); L97.512 Non-pressure chronic ulcer of other part of right foot with fat layer exposed; M86.271 Subacute osteomyelitis, right ankle and foot; R60.0 Localized edema; E11.40 Type 2 diabetes mellitus with diabetic neuropathy, unspecified; L84 Corns and callosities; Z79.2 Long term (current) use of antibiotics
CPT/HCPCS: 36415; 80053; 85025; 85651; 86140; 97597; 99213

== ENCOUNTER → 2022-03-16 09:25 | Outpatient (CLI) | payer OTHER, SELFPAY ==
[2020-10-09 01:44] VITALS: BMI 39.6
[2022-03-16 10:12] LABS: Add Manual Diff / Slide Review NO; Basophils Absolute Auto 0 /uL (0-100); Basophils Percent Auto 0.4 % (0-2); Eosinophils Absolute Auto 300 /uL (0-450); Eosinophils Percent Auto 3.3 % (2-4); Hemoglobin 13.4 g/dL (13.5-17.5); Lymphocytes Absolute Auto 2100 /uL (1100-4500); Lymphocytes Percent Auto 25.3 % (25-40); Mean Corpuscular Hemoglobin 26.7 PG (26-34); Mean Corpuscular Volume 83.6 fL (80-100); Monocytes Absolute Auto 600 /uL (0-900); Monocytes Percent Auto 7.6 % (3-14); Neutrophils Absolute Auto 5400 /uL (1500-7000); Neutrophils Percent Auto 63.4 % (50-75); Platelet Count 227 X10^3/uL (150-400); Red Blood Cell Count 5.02 X10^6/uL (4.5-5.9); Red Cell Distribution Width 15.8 % (11.6-14.8); White Blood Cell Count 8.5 X10^3/uL (4.5-11.0)
[2022-03-16 10:25] LABS: Erythrocyte Sedimentation Rate 15 MM/HR (0-15)
[2022-03-16 10:49] LABS: Alanine Aminotransferase 13 IU/L (<50); Albumin Globulin Ratio 1.1 (1.0-2.8); Alkaline Phosphatase 118 U/L (38-126); Aspartate Aminotransferase 18 IU/L (17-59); BUN Creatinine Ratio 21.3 (6-22); Bilirubin Total 0.6 mg/dL (0.2-1.3); Blood Urea Nitrogen 20 mg/dL (9-20); C-Reactive Protein Quant 1.2 mg/dL (<1.0); Calcium 8.6 mg/dL (8.4-10.2); Carbon Dioxide 26 mmol/L (22-32); Chloride 101 mmol/L (98-107); Estimated Glomerular Filt Rate > 60 mL/min (>60); Globulin 3.6 g/dL (1.7-4.1); Glucose 98 mg/dL (80-110); HEMOLYSIS < 15 (0-50); Sodium 136 mmol/L (137-145); Total Protein 7.6 g/dL (6.3-8.2)
== END ==
PROVIDERS: PCP Internal Medicine; Referring Provider Surgery; Visit Provider Surgery
DX: Z79.2 Long term (current) use of antibiotics (principal)
CPT/HCPCS: 36415; 80053; 85025; 85651; 86140

== ENCOUNTER → 2022-03-19 09:44 | Outpatient (CLI) | payer OTHER, SELFPAY ==
[2020-10-09 01:44] VITALS: BMI 39.6
== END ==
PROVIDERS: PCP Internal Medicine; Referring Provider Internal Medicine; Visit Provider Nurse Practitioner Family
DX: E11.621 Type 2 diabetes mellitus with foot ulcer (principal); L97.512 Non-pressure chronic ulcer of other part of right foot with fat layer exposed; R60.0 Localized edema; L84 Corns and callosities
CPT/HCPCS: 99213

== ENCOUNTER → 2022-03-22 08:41 | Outpatient (CLI) | payer OTHER, SELFPAY ==
[2020-10-09 01:44] VITALS: BMI 39.6
== END ==
PROVIDERS: PCP Internal Medicine; Referring Provider Podiatrist; Visit Provider Surgery
DX: E11.621 Type 2 diabetes mellitus with foot ulcer (principal); L97.516 Non-pressure chronic ulcer of other part of right foot with bone involvement without evidence of necrosis; Z79.2 Long term (current) use of antibiotics; M86.271 Subacute osteomyelitis, right ankle and foot; E11.40 Type 2 diabetes mellitus with diabetic neuropathy, unspecified; E11.51 Type 2 diabetes mellitus with diabetic peripheral angiopathy without gangrene; L84 Corns and callosities
CPT/HCPCS: 99213

== ENCOUNTER → 2022-03-24 09:47 | Outpatient (CLI) | payer OTHER, SELFPAY ==
[2020-10-09 01:44] VITALS: BMI 39.6
== END ==
PROVIDERS: PCP Internal Medicine; Referring Provider Internal Medicine; Visit Provider Surgery
DX: E11.621 Type 2 diabetes mellitus with foot ulcer (principal); L97.512 Non-pressure chronic ulcer of other part of right foot with fat layer exposed; R60.0 Localized edema; L84 Corns and callosities
CPT/HCPCS: 99212

== ENCOUNTER → 2022-03-29 08:45 | Outpatient (CLI) | payer OTHER, SELFPAY ==
[2020-10-09 01:44] VITALS: BMI 39.6
== END ==
PROVIDERS: PCP Internal Medicine; Referring Provider Internal Medicine; Visit Provider Surgery
DX: E11.621 Type 2 diabetes mellitus with foot ulcer (principal); L97.512 Non-pressure chronic ulcer of other part of right foot with fat layer exposed; M86.271 Subacute osteomyelitis, right ankle and foot; R60.0 Localized edema; M20.61 Acquired deformities of toe(s), unspecified, right foot
CPT/HCPCS: 99212; 99213

== ENCOUNTER → 2022-04-12 08:41 | Outpatient (CLI) | payer OTHER, SELFPAY ==
[2020-10-09 01:44] VITALS: BMI 39.6
== END ==
PROVIDERS: PCP Internal Medicine; Referring Provider Internal Medicine; Visit Provider Surgery
DX: E11.621 Type 2 diabetes mellitus with foot ulcer (principal); L97.529 Non-pressure chronic ulcer of other part of left foot with unspecified severity; M19.072 Primary osteoarthritis, left ankle and foot; L97.522 Non-pressure chronic ulcer of other part of left foot with fat layer exposed; E11.40 Type 2 diabetes mellitus with diabetic neuropathy, unspecified; M86.271 Subacute osteomyelitis, right ankle and foot
CPT/HCPCS: 11042; 73630; 99213

== ENCOUNTER → 2022-04-12 10:15 | Outpatient (CLI) | payer OTHER, SELFPAY ==
[2020-10-09 01:44] VITALS: BMI 39.6
--- NOTE | 2022-04-12 10:19 | DI.RAD.S_ITS ---
PROCEDURE: XR FOOT LT MIN 3V INDICATIONS: ulcer on left 2nd toe TECHNIQUE: 3 views of the foot were acquired. COMPARISON: [facility], , FOOT 3V LEFT, 08/27/2015, 17:31. FINDINGS: Bones: No fractures or dislocations. No suspicious bony lesions. Metatarsus primus varus. Moderate joint space narrowing and periarticular osteophyte formation at the 1st metatarsophalangeal joint. Periarticular osteophyte formation at the interphalangeal joints of the digits. Calcaneal spurring is present. Soft tissues: No tibiotalar joint effusion. Achilles tendon appears normal. IMPRESSION: Multifocal osteoarthritis. No acute fracture. No osseous lesion. If symptoms and/or clinical suspicion for pathology persist, further assessment with repeat, or advanced imaging (e.g., CT, MRI, or bone scan) may be helpful for further assessment. Dictated by: Marianne Moreno M.D. on 04/12/2022 at 11:18 Transcribed by: MARLY on 04/12/2022 at 11:19 Approved by: Marianne Moreno M.D. on 04/12/2022 at 16:28
== END ==
PROVIDERS: PCP Internal Medicine; Referring Provider Surgery; Visit Provider Surgery
DX: E11.621 Type 2 diabetes mellitus with foot ulcer (principal); L97.529 Non-pressure chronic ulcer of other part of left foot with unspecified severity; M19.072 Primary osteoarthritis, left ankle and foot
CPT/HCPCS: 73630

== ENCOUNTER → 2022-04-15 08:42 | Outpatient (CLI) | payer OTHER, SELFPAY ==
[2020-10-09 01:44] VITALS: BMI 39.6
== END ==
PROVIDERS: PCP Internal Medicine; Referring Provider Internal Medicine; Visit Provider Surgery
DX: E11.621 Type 2 diabetes mellitus with foot ulcer (principal); L97.519 Non-pressure chronic ulcer of other part of right foot with unspecified severity; L97.522 Non-pressure chronic ulcer of other part of left foot with fat layer exposed; L97.512 Non-pressure chronic ulcer of other part of right foot with fat layer exposed; R60.0 Localized edema; L53.9 Erythematous condition, unspecified
CPT/HCPCS: 11042; 73630; 87070; 87075; 87205; 99213

== ENCOUNTER → 2022-04-15 13:38 | Outpatient (CLI) | payer OTHER, SELFPAY ==
[2020-10-09 01:44] VITALS: BMI 39.6
--- NOTE | 2022-04-15 13:40 | DI.RAD.S_ITS ---
PROCEDURE: XR FOOT RT MIN 3V INDICATIONS: diabetic foot ulcer, evaluate for osteomyelitis TECHNIQUE: 3 views of the foot were acquired. COMPARISON: [facility], CR, XR FOOT LT MIN 3V, 04/12/2022, 10:23. FINDINGS: Bones: No fractures or dislocations. Osteoarthritic changes are noted throughout right foot. No gross bony erosive changes are seen. No suspicious bony lesions. Soft tissues: Ulceration over dorsal aspect of distal 3rd toe is seen. Surrounding soft tissue swelling is noted. No tibiotalar joint effusion. Achilles tendon appears normal. IMPRESSION: Ulceration involving soft tissue over dorsal aspect of 3rd toe with surrounding soft tissue swelling. No radiographic evidence of osteomyelitis in right foot. No fracture or dislocation. Dictated by: Shailesh Lyon M.D. on 04/15/2022 at 15:07 Approved by: Shailesh Lyon M.D. on 04/15/2022 at 15:14
== END ==
PROVIDERS: PCP Internal Medicine; Referring Provider Surgery; Visit Provider Surgery
DX: E11.621 Type 2 diabetes mellitus with foot ulcer (principal); L97.519 Non-pressure chronic ulcer of other part of right foot with unspecified severity
CPT/HCPCS: 73630

== ENCOUNTER → 2022-04-19 08:32 | Outpatient (CLI) | payer OTHER, SELFPAY ==
[2020-10-09 01:44] VITALS: BMI 39.6
== END ==
PROVIDERS: PCP Internal Medicine; Referring Provider Internal Medicine; Visit Provider Surgery
DX: E11.621 Type 2 diabetes mellitus with foot ulcer (principal); L97.522 Non-pressure chronic ulcer of other part of left foot with fat layer exposed; L97.512 Non-pressure chronic ulcer of other part of right foot with fat layer exposed; L08.9 Local infection of the skin and subcutaneous tissue, unspecified; M86.271 Subacute osteomyelitis, right ankle and foot; R60.0 Localized edema; E11.40 Type 2 diabetes mellitus with diabetic neuropathy, unspecified; Z79.2 Long term (current) use of antibiotics
CPT/HCPCS: 11042

== ENCOUNTER → 2022-04-22 08:39 | Outpatient (CLI) | payer OTHER, SELFPAY ==
[2020-10-09 01:44] VITALS: BMI 39.6
== END ==
PROVIDERS: PCP Internal Medicine; Referring Provider Internal Medicine; Visit Provider Surgery
DX: E11.621 Type 2 diabetes mellitus with foot ulcer (principal); L97.522 Non-pressure chronic ulcer of other part of left foot with fat layer exposed; L97.512 Non-pressure chronic ulcer of other part of right foot with fat layer exposed; R60.0 Localized edema
CPT/HCPCS: 99214

== ENCOUNTER → 2022-04-26 08:37 | Outpatient (CLI) | payer OTHER, SELFPAY ==
[2020-10-09 01:44] VITALS: BMI 39.6
== END ==
PROVIDERS: PCP Internal Medicine; Referring Provider Internal Medicine; Visit Provider Surgery
DX: E11.621 Type 2 diabetes mellitus with foot ulcer (principal); M86.271 Subacute osteomyelitis, right ankle and foot; L97.522 Non-pressure chronic ulcer of other part of left foot with fat layer exposed; L97.512 Non-pressure chronic ulcer of other part of right foot with fat layer exposed; E11.51 Type 2 diabetes mellitus with diabetic peripheral angiopathy without gangrene; Z79.2 Long term (current) use of antibiotics; E11.40 Type 2 diabetes mellitus with diabetic neuropathy, unspecified
CPT/HCPCS: 11042; 99213

== ENCOUNTER → 2022-04-29 09:52 | Outpatient (CLI) | payer OTHER, SELFPAY ==
[2020-10-09 01:44] VITALS: BMI 39.6
== END ==
PROVIDERS: PCP Internal Medicine; Referring Provider Internal Medicine; Visit Provider Surgery
DX: E11.621 Type 2 diabetes mellitus with foot ulcer (principal); L97.522 Non-pressure chronic ulcer of other part of left foot with fat layer exposed
CPT/HCPCS: 99213

== ENCOUNTER → 2022-05-03 08:44 | Outpatient (CLI) | payer OTHER, SELFPAY ==
[2020-10-09 01:44] VITALS: BMI 39.6
== END ==
PROVIDERS: PCP Internal Medicine; Referring Provider Internal Medicine; Visit Provider Surgery
DX: E11.621 Type 2 diabetes mellitus with foot ulcer (principal); L97.512 Non-pressure chronic ulcer of other part of right foot with fat layer exposed; L97.522 Non-pressure chronic ulcer of other part of left foot with fat layer exposed; M86.271 Subacute osteomyelitis, right ankle and foot; I73.9 Peripheral vascular disease, unspecified; R60.0 Localized edema; E11.40 Type 2 diabetes mellitus with diabetic neuropathy, unspecified; Z79.2 Long term (current) use of antibiotics
CPT/HCPCS: 11042

== ENCOUNTER → 2022-05-06 14:37 | Outpatient (CLI) | payer OTHER, SELFPAY ==
[2020-10-09 01:44] VITALS: BMI 39.6
== END ==
PROVIDERS: PCP Internal Medicine; Referring Provider Internal Medicine; Visit Provider Surgery
DX: E11.621 Type 2 diabetes mellitus with foot ulcer (principal); L97.512 Non-pressure chronic ulcer of other part of right foot with fat layer exposed; L97.522 Non-pressure chronic ulcer of other part of left foot with fat layer exposed; R60.0 Localized edema
CPT/HCPCS: 99212

== ENCOUNTER → 2022-05-10 06:48 | Outpatient (CLI) | payer OTHER, SELFPAY ==
[2020-10-09 01:44] VITALS: BMI 39.6
--- NOTE | 2022-05-10 06:49 | DI.US.S_ITS ---
PROCEDURE: US ABD AORTA ANEURYSM SCREEN INDICATIONS: SCREENING - FORMER SMOKER TECHNIQUE: Real time scanning was performed of the aorta and iliac arteries, with image documentation. COMPARISON: None. FINDINGS: Aorta: Proximal aortic diameter measures 2.4 cm. Mid-aorta measures 2.1 cm. Distal aortic diameter is 2.0 cm. Iliac arteries: Bilateral common iliac arteries are not well seen due to overlying bowel gas. IMPRESSION: No evidence of abdominal aortic aneurysm. Dictated by: Shailesh Lyon M.D. on 05/10/2022 at 8:44 Approved by: Shailesh Lyon M.D. on 05/10/2022 at 8:45
== END ==
PROVIDERS: Referring Provider Physician Assistant; Visit Provider Physician Assistant
DX: Z13.6 Encounter for screening for cardiovascular disorders (principal); Z87.891 Personal history of nicotine dependence
CPT/HCPCS: 76706

== ENCOUNTER → 2022-05-10 08:37 | Outpatient (CLI) | payer OTHER, SELFPAY ==
[2020-10-09 01:44] VITALS: BMI 39.6
== END ==
PROVIDERS: Visit Provider Surgery
DX: Z13.6 Encounter for screening for cardiovascular disorders (principal); Z87.891 Personal history of nicotine dependence; E11.621 Type 2 diabetes mellitus with foot ulcer; M86.271 Subacute osteomyelitis, right ankle and foot; L97.512 Non-pressure chronic ulcer of other part of right foot with fat layer exposed; L97.522 Non-pressure chronic ulcer of other part of left foot with fat layer exposed; R60.0 Localized edema; E11.40 Type 2 diabetes mellitus with diabetic neuropathy, unspecified; E11.51 Type 2 diabetes mellitus with diabetic peripheral angiopathy without gangrene
CPT/HCPCS: 11042; 76706

== ENCOUNTER → 2022-05-14 08:40 | Outpatient (CLI) | payer OTHER, SELFPAY ==
[2020-10-09 01:44] VITALS: BMI 39.6
== END ==
PROVIDERS: Referring Provider Podiatrist; Visit Provider Surgery
DX: E11.621 Type 2 diabetes mellitus with foot ulcer (principal); L97.522 Non-pressure chronic ulcer of other part of left foot with fat layer exposed; R60.0 Localized edema; L53.9 Erythematous condition, unspecified
CPT/HCPCS: 99213

== ENCOUNTER → 2022-05-17 08:49 | Outpatient (CLI) | payer OTHER, SELFPAY ==
[2020-10-09 01:44] VITALS: BMI 39.6
== END ==
PROVIDERS: Referring Provider Podiatrist; Visit Provider Surgery
DX: E11.621 Type 2 diabetes mellitus with foot ulcer (principal); L97.522 Non-pressure chronic ulcer of other part of left foot with fat layer exposed; L97.512 Non-pressure chronic ulcer of other part of right foot with fat layer exposed; M20.62 Acquired deformities of toe(s), unspecified, left foot; E11.40 Type 2 diabetes mellitus with diabetic neuropathy, unspecified
CPT/HCPCS: 97597

== ENCOUNTER → 2022-05-20 09:49 | Outpatient (CLI) | payer OTHER, SELFPAY ==
[2020-10-09 01:44] VITALS: BMI 39.6
== END ==
PROVIDERS: Referring Provider Podiatrist; Visit Provider Surgery
DX: E11.621 Type 2 diabetes mellitus with foot ulcer (principal); L97.522 Non-pressure chronic ulcer of other part of left foot with fat layer exposed; L97.511 Non-pressure chronic ulcer of other part of right foot limited to breakdown of skin
CPT/HCPCS: 99213

== ENCOUNTER → 2022-05-24 08:43 | Outpatient (CLI) | payer OTHER, SELFPAY ==
[2020-10-09 01:44] VITALS: BMI 39.6
== END ==
PROVIDERS: Referring Provider Internal Medicine; Visit Provider Surgery
DX: E11.621 Type 2 diabetes mellitus with foot ulcer (principal); L97.522 Non-pressure chronic ulcer of other part of left foot with fat layer exposed; E11.40 Type 2 diabetes mellitus with diabetic neuropathy, unspecified; Z89.421 Acquired absence of other right toe(s)
CPT/HCPCS: 99213

== ENCOUNTER → 2022-05-27 08:49 | Outpatient (CLI) | payer OTHER, SELFPAY ==
[2020-10-09 01:44] VITALS: BMI 39.6
== END ==
PROVIDERS: Referring Provider Podiatrist; Visit Provider Surgery
DX: E11.621 Type 2 diabetes mellitus with foot ulcer (principal); L97.522 Non-pressure chronic ulcer of other part of left foot with fat layer exposed
CPT/HCPCS: 99212

== ENCOUNTER → 2022-05-31 09:03 | Outpatient (CLI) | payer OTHER, SELFPAY ==
[2020-10-09 01:44] VITALS: BMI 39.6
== END ==
PROVIDERS: Referring Provider Internal Medicine; Visit Provider Surgery
DX: E11.621 Type 2 diabetes mellitus with foot ulcer (principal); L97.522 Non-pressure chronic ulcer of other part of left foot with fat layer exposed; E11.40 Type 2 diabetes mellitus with diabetic neuropathy, unspecified; E11.51 Type 2 diabetes mellitus with diabetic peripheral angiopathy without gangrene; R60.0 Localized edema
CPT/HCPCS: 97597

== ENCOUNTER → 2022-06-03 08:34 | Outpatient (CLI) | payer OTHER, SELFPAY ==
[2020-10-09 01:44] VITALS: BMI 39.6
== END ==
PROVIDERS: PCP Internal Medicine; Referring Provider Podiatrist; Visit Provider Surgery
DX: E11.621 Type 2 diabetes mellitus with foot ulcer (principal); L97.322 Non-pressure chronic ulcer of left ankle with fat layer exposed
CPT/HCPCS: 99213

== ENCOUNTER → 2022-06-07 08:33 | Outpatient (CLI) | payer OTHER, SELFPAY ==
[2020-10-09 01:44] VITALS: BMI 39.6
== END ==
PROVIDERS: PCP Internal Medicine; Referring Provider Podiatrist; Visit Provider Surgery
DX: E11.42 Type 2 diabetes mellitus with diabetic polyneuropathy (principal); Z86.31 Personal history of diabetic foot ulcer
CPT/HCPCS: 99212; 99213

== ENCOUNTER → 2022-06-21 08:44 | Outpatient (CLI) | payer OTHER, SELFPAY ==
[2020-10-09 01:44] VITALS: BMI 39.6
== END ==
PROVIDERS: PCP Internal Medicine; Referring Provider Internal Medicine; Visit Provider Surgery
DX: Z86.31 Personal history of diabetic foot ulcer (principal); E11.40 Type 2 diabetes mellitus with diabetic neuropathy, unspecified
CPT/HCPCS: 99211; 99212

== ENCOUNTER → 2022-12-15 14:04 | Outpatient (CLI) | payer OTHER, SELFPAY ==
[2020-10-09 01:44] VITALS: BMI 39.6
== END ==
PROVIDERS: PCP Internal Medicine; Referring Provider Podiatrist; Visit Provider Surgery
DX: E11.621 Type 2 diabetes mellitus with foot ulcer (principal); L97.526 Non-pressure chronic ulcer of other part of left foot with bone involvement without evidence of necrosis; L53.9 Erythematous condition, unspecified; L97.521 Non-pressure chronic ulcer of other part of left foot limited to breakdown of skin; L97.511 Non-pressure chronic ulcer of other part of right foot limited to breakdown of skin; E11.40 Type 2 diabetes mellitus with diabetic neuropathy, unspecified; R60.0 Localized edema
CPT/HCPCS: 11042; 87070; 87075; 87077; 87147; 87186; 87205; 99213; 99214

== ENCOUNTER → 2022-12-16 11:10 | Outpatient (CLI) | payer OTHER, SELFPAY ==
[2020-10-09 01:44] VITALS: BMI 39.6
--- NOTE | 2022-12-16 11:11 | DI.RAD.S_ITS ---
PROCEDURE: XR FOOT LT MIN 3V INDICATIONS: Wounds to left 3rd toe TECHNIQUE: Three views of the foot were acquired. COMPARISON: [facility], CR, XR FOOT LT MIN 3V, 04/12/2022, 10:23. [facility], CR, FOOT 3V LEFT, 08/27/2015, 17:31. FINDINGS: Bones: No acute fractures or dislocations. Osseous destruction is seen at the tuft of the 3rd distal phalanx, which appears similar in extent when compared to radiographs from 04/12/2022. Toes are suboptimally evaluated due to overlapping osseous structures on all views. Moderate hallux valgus and metatarsus primus varus again seen. Degenerative changes are seen throughout the interphalangeal joints of the toes as well as the 1st metatarsophalangeal joint. Plantar calcaneal enthesophyte. Soft tissues: Nonspecific soft tissue edema in the 3rd toe. No suspicious soft tissue calcification. IMPRESSION: 1. Cortical irregularity at the tuft of the 3rd distal phalanx appears similar in extent when compared to the radiographs from 04/12/2022. No definite acute osseous destruction identified to suggest active osteomyelitis radiographically. 2. Hallux valgus and multifocal osteoarthrosis do not appear significantly changed. Approved by: Shalom Parry M.D. on 12/16/2022 at 14:49
--- NOTE | 2022-12-16 11:11 | DI.RAD.S_ITS ---
PROCEDURE: XR FOOT RT MIN 3V INDICATIONS: Wound to right 3rd toe TECHNIQUE: 3 views of the foot were acquired. COMPARISON: [facility], , XR FOOT RT MIN 3V, 04/15/2022, 14:11. FINDINGS: Bones: Postsurgical changes from amputation of the 2nd ray at the metatarsophalangeal joint. Multiple hammertoe deformities. Toes are suboptimally evaluated due to overlapping osseous structures on all views. Posterior and plantar calcaneal enthesophytes. Degenerative changes are seen at the 1st metatarsophalangeal joint and the interphalangeal joints of the toes. Soft tissues: Mild soft tissue edema in the 3rd toe. No suspicious soft tissue calcifications. IMPRESSION: 1. Soft tissue edema in the 3rd toe. No definite radiographic signs of osteomyelitis although the toes are not well evaluated due to overlapping osseous structures. MRI could be performed for further evaluation if there is continued clinical concern. 2. Postsurgical changes from amputation at the 2nd metatarsophalangeal joint. 3. Multifocal osteoarthrosis does not appear significantly changed. Approved by: Shalom Parry M.D. on 12/16/2022 at 14:52
== END ==
PROVIDERS: PCP Physician Assistant; Referring Provider Surgery; Visit Provider Surgery
DX: L08.9 Local infection of the skin and subcutaneous tissue, unspecified (principal); R60.0 Localized edema; Z89.421 Acquired absence of other right toe(s); M19.071 Primary osteoarthritis, right ankle and foot; M20.12 Hallux valgus (acquired), left foot; M19.072 Primary osteoarthritis, left ankle and foot
CPT/HCPCS: 73630

== ENCOUNTER → 2022-12-23 09:51 | Outpatient (CLI) | payer OTHER, SELFPAY ==
[2020-10-09 01:44] VITALS: BMI 39.6
--- NOTE | 2022-12-23 | OV.WND_ITS ---
Progress Note Details Patient Name: Hunter Mendez Patient Number: [id number] Clinician: Dolores Mccormick RN Patient Date of : 1950 Physician / Biomed Tech: Julein Joyner Patient SUBJECTIVE Chief Complaint This information was obtained from the Patient. Diabetic ulcers to bilateral feet. Allergies No Known Drug Allergies HPI This information was obtained from the Patient. The following HPI elements were documented for the patient's wound: Location: R 3rd toe, L 3rd toe, Bilat great toes Duration: 12/01/22 Context: DFU Associated Signs and Symptoms: none The patient is a 72 year old male with type 2 diabetes, neuropathy, and acquired foot deformity who returns today for follow up of multiple diabetic ulcers of both feet. The patient was seen for the 1st time last week and started on dressing changes with Hydrofera blue and postop surgical shoes for pressure offloading. The patient denies having any unusual pain or discomfort however he continues to have some slight redness and swelling of the left 3rd toe. Patient has had some bloody drainage but he has not had any fever or chills. The patient was started on doxycycline last week but has only taking 1 pill a day. He reports a good appetite and good control of his blood sugars. There have been no significant changes in his overall health since his last visit. Past history is remarkable for having multiple previous diabetic foot ulcers involving the right 2nd toe and right 3rd toe with osteomyelitis. The patient has not had a recent hemoglobin A1c. ABIs show flow adequate for healing. LABS: 12/16/22: X-rays of both feet were negative for osteomyelitis 12/15/22: Cultures grew Staphylococcus lugdunensis Medical History This information was obtained from the Patient. Patient has a medical history of: Thyrotoxicosis Ralph's esophagus Diabetes, type 2 (01/02/21 A1C: 6.4%) Diabetic ulcer (left 3rd toe) Chronic osteomyelitis (left 3rd toe) Hypothyroidism allergic rhinosinusitis Hunter Mendez [id number] 1950 Diverticulitis excessive daytime sleepiness Gastro Esoph. Reflux Disease (GERD) history of alcohol dependence history of alcohol hepitis history of thyrotoxicosis 1971 Hypertension insomnia due to medical condition nocturnal hypoxemia obesity obstructive sleep apnea ,adult snoring type 2 diabetes mellitus without complications Additional Information Does patient have a history of Cancer? Yes? Complete all questions.: No Surgical History This information was obtained from the Patient. 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 General Notes CBG per patient 95. Physical Exam Constitutional: Vital signs reviewed and noted. Well developed, well nourished, and in no acute distress. Alert and oriented x3. Respiratory: Even respirations without use of accessory muscles. No intercoastal retractions noted. Even and non labored respiration. Integumentary (Hair, Skin): See wound assessment. Neurological: decreased lower extremity sensation. Psychiatric: Orientation to time, place and person: Normal affect with normal thought pattern. Additional Information The patient's potential to heal is: fair. Hunter Mendez [id number] 1950 Wound Assessment(s) Wound #10 Left Toe - Third is an acute [place]res Grade 3 Diabetic Ulcer and has received a status of Not Healed. Initial wound encounter measurements are 0.2cm length x 0.2cm width x 0.4 cm depth, with an area of 0.04 sq cm and a volume of 0.016 cubic cm. Bone and adipose are exposed. No tunneling has been noted. No sinus tract has been noted. Undermining has been noted at 12:00 and ends at 12:00 with a maximum distance of 0.2cm. There is a Moderate amount of serosanguineous drainage noted which has a Mild odor. The patient reports a wound pain of level 0/10. The wound margin is unattached Wound bed has Yes, pink, spongy, granulation, Yes slough, No eschar, No epithelialization. The periwound skin exhibited edema and erythema. The temperature of the periwound skin is Warm. Local Pulse is Palpable. Additional Information Limited to breakdown of skin: No Wound #11 Left Hallux is an acute [place] Grade 1 Diabetic Ulcer and has received a status of Not Healed. Initial wound encounter measurements are 1cm length x 0.4cm width x 0.1 cm depth, with an area of 0.4 sq cm and a volume of 0.04 cubic cm. No tunneling has been noted. No sinus tract has been noted. No undermining has been noted. There is a Moderate amount of serous drainage noted which has no odor. The patient reports a wound pain of level 0/10. The wound margin is attached Wound bed has No, granulation, No slough, No eschar, No epithelialization. The periwound skin was moist. The temperature of the periwound skin is WNL. Local Pulse is Palpable. Additional Information Limited to breakdown of skin: Yes Wound #12 Right, Medial Toe - Third is an acute [place] Grade 1 Diabetic Ulcer and has received an outcome of Healed - no new wound(s). Initial wound encounter measurements are 0cm length x 0cm width with no measurable depth, with an area of 0 sq cm. No tunneling has been noted. No sinus tract has been noted. No undermining has been noted. There is a Scant amount of serous drainage noted which has no odor. The patient reports a wound pain of level 0/10. The wound margin is attached Wound bed has No, granulation, No slough, No eschar, No epithelialization. The periwound skin was moist. The temperature of the periwound skin is WNL. Local Pulse is Palpable. Additional Information Limited to breakdown of skin: Yes Wound #13 Right Hallux is an acute [place] Grade 1 Diabetic Ulcer and has received an outcome of Healed - no new wound(s). Initial wound encounter measurements are 0cm length x 0cm width with no measurable depth, with an area of 0 sq cm. No tunneling has been noted. No sinus tract has been noted. No undermining has been noted. There is a Scant amount of serous drainage noted which has no odor. The patient reports a wound pain of level 0/10. The wound margin is attached Wound bed has No, granulation, No slough, No eschar, No epithelialization. The periwound skin was moist. The temperature of the periwound skin is WNL. Local Pulse is Palpable. Additional Information Limited to breakdown of skin: Yes ASSESSMENT Active Problems ICD-10 (Encounter Diagnosis) E11.621 - Type 2 diabetes mellitus with foot ulcer (Encounter Diagnosis) L97.512 - Non-pressure chronic ulcer of other part of right foot with fat layer Hunter Mendez [id number] 1950 exposed (Encounter Diagnosis) L97.511 - Non-pressure chronic ulcer of other part of right foot limited to breakdown of skin (Encounter Diagnosis) L97.522 - Non-pressure chronic ulcer of other part of left foot with fat layer exposed (Encounter Diagnosis) L97.521 - Non-pressure chronic ulcer of other part of left foot limited to breakdown of skin General Notes ulcer left 3rd toe that extends to distal phalanx, slight erythema and swelling, unchanged ulcer right 3rd toe healed ulcer right hallux healed ulcer left hallux stable The following factors have been identified that may affect wound healing: Devitalized tissue Biofilm Diabetes Neuropathy Acquired foot deformity Infection Goals: removed devitalized tissue Remove and prevent biofilm Pressure offloading Treat infection Wound closure Prevent recurrence Plan: debridement, continue dressing changes with Hydrofera blue, continue doxycycline 100 mg p.o. b.i.d., continue using postop surgical shoes for pressure offloading. MRI left foot ordered. Follow up in 1 week for a recheck. Need to check hemoglobin A1c. PROCEDURES Wound #10 Wound #10 (Diabetic Ulcer) is located on the left toe - third. A skin/subcutaneous tissue level surgical debridement with a total area debrided of 0.18 sq cm. was performed by Julien Joyner MD. Subcutaneous was removed along with devitalized tissue: biofilm, exudate and slough. The following instrument(s) were used: curette. Pain control was achieved using EMLA lidocaine/prilocaine 2.5%/2.5%. A time out was conducted prior to the start of the procedure. A moderate amount of bleeding was controlled with silver nitrate. The procedure was tolerated well with a pain level of 0 throughout and a pain level of 0 following the procedure. Post Debridement Measurements: 0.3cm length x 0.6cm width x 0.3cm depth; with an area of 0.18 sq cm and a volume of 0.054 cubic cm. Additional Information Muscle fascia or bone removed and sent to pathology?: No PLAN Wound Orders: Wound #10 Left Toe - Third AndreaHunter guillen [id number] 1950 Hygiene May shower with wound protected, using a cast protector or plastic bag and tape Cleanser Cleanse Wound with normal saline Dressings Primary dressing - Hydrofera blue ready Cover and secure with - Optifoam and tape Change Dressing - Twice at home this week Physician Review: Reviewed and evaluated labs. Discussed the Plan of Care @ bedside with - the patient I, as the physician, have reviewed the orders scribed by the center RN's and agree. Wound #11 Left Hallux Hygiene May shower with wound protected, using a cast protector or plastic bag and tape Cleanser Cleanse Wound with normal saline Dressings Primary dressing - Hydrofera blue ready Cover and secure with - Optifoam and tape Change Dressing - Twice at home this week Physician Review: Reviewed and evaluated labs. Discussed the Plan of Care @ bedside with - the patient I, as the physician, have reviewed the orders scribed by the center RN's and agree. Additional Orders: Off-Loading Keep weight off - Feet Use/Wear when walking - Post op shoes Dietary Increased protein Follow-Up Appointments Return Appointment - One week Other information: If you develop fever, chills, increased pain, drainage, redness or swelling please call our office. If after hours, respond to the ER. Should you experience any significant changes in your wound(s) or have any questions regarding your home care instructions please contact the wound center @ [phone]. If after hours, contact your primary care physician or go to the hospital emergency room. Scribing Attestation I attest, as the nurse, that I scribed these orders for the physician. Ancillary Services: Radiology: MRI - Left foot. Please call: [phone] to schedule. Plan of Care: 01. ENSURE/ESTABLISH OPTIMAL BLOOD FLOW : - Complete lower extremity assessment - Perform non-invasive vascular testing (i.e. DOMINICK) and document findings. Consider repeating when wound healing <40% after 30 days of wound care. 02. ASSESS FOR/TREAT INFECTION : - Evaluate for signs and symptoms of infection and document findings. - Obtain culture and sensitivity (CandS) or tissue culture when infection is suspected. (NOTE:) Consider repeating when wound healing <40% after 30 days of wound care. - Order appropriate antibiotics based on patient presentation and culture and sensitivity results. Instruct patient on the importance of taking medication as prescribed. 03. DEBRIDE WEEKLY OR MORE OFTEN PRN : Hunter Mendez [id number] 1950 - Evaluate patient in center weekly to assess wound bed and margins for need for debridement. - Mechanical debridement: Stimulate and/or maintain acute phase of wound healing by reducing bacterial burden and devitalized/non-viable tissue. - Debridement by any method to remove devitalized/necrotic tissue to promote healing and prevent further complications. Goal is to stimulate and/or maintain acute phase of wound healing by reducing bacterial burden and devitalized/non-viable tissue. 04. OPTIMIZE GLUCOSE CONTROL and NUTRITION : - Order/review pertinent labs to evaluate renal function, glucose control, and nutritional status. - Complete a nutrition risk assessment. - Order PCP or Endocrine Consult when A1C is >7.0 for follow up and stabilization of glucose. 05. OFFLOADING PLAN : - Evaluate plan for offloading - Advise patient to offload the foot ulcer. (i.e. half shoe, surgical shoe, insert, custom shoe, felt and foam, cam walker, multipodus splint, total contact cast, bi-valve cast, posterior splint). - Provide education materials/discuss offloading strategies as appropriate. 06. OPTIMIZE HOST FACTORS: - Assess and review patient history for wound etiology, co-morbid conditions, medication regime, and smoking history. - Assess lifestyle factors such as smoking, alcohol/drug abuse, eating habits/malnutrition and activity level. 07. DRESSING SELECTION : - Evaluate for dressing-related factors, such as availability, wear time, adaptability and use to better optimize wound healing and patient compliance. - Choose topical treatments and/or dressing based on wound type and appearance, periwound skin condition, wound size and depth, anatomic location, volume of exudate, edema in the lower extremities, and risk or presence of infection. - Educate the patient/family/caregiver to monitor dressing daily. Change dressing only as needed but never less frequently than weekly so that wound bed can be reassessed. 08. ADVANCED MODALITIES : - Evaluate for appropriateness of Cellular Tissue Product therapy. 09. FALL PREVENTION : - Complete fall assessment. 10. PAIN MANAGEMENT : - Complete pain assessment 11. MEASURABLE GOALS for Wound Healing and/or Hyperbaric Oxygen Therapy : - Decrease Inflammation - Decrease pain - Decrease Wound Dimensions - Wound Closure - Improve quality of life - Reduce risk for infection 12. DURATION/FREQUENCY of Wound Care Visits : - 1x weekly for 30 days Electronic Signature(s) Signed By: Date: Julien Joyner MD 12/23/2022 10:38:04 (PT) Entered By: Julien Joyner MD on 12/23/2022 10:37:02 (PT) Hunter Mendez [id number] 1950
== END ==
PROVIDERS: PCP Physician Assistant; Referring Provider Podiatrist; Visit Provider Surgery
DX: E11.621 Type 2 diabetes mellitus with foot ulcer (principal); L97.526 Non-pressure chronic ulcer of other part of left foot with bone involvement without evidence of necrosis; L97.521 Non-pressure chronic ulcer of other part of left foot limited to breakdown of skin; E11.40 Type 2 diabetes mellitus with diabetic neuropathy, unspecified
CPT/HCPCS: 11042; 99213

== ENCOUNTER → 2022-12-29 09:19 | Outpatient (CLI) | payer OTHER, SELFPAY ==
[2020-10-09 01:44] VITALS: BMI 39.6
== END ==
PROVIDERS: PCP Physician Assistant; Referring Provider Podiatrist; Visit Provider Surgery
DX: E11.621 Type 2 diabetes mellitus with foot ulcer (principal); L97.522 Non-pressure chronic ulcer of other part of left foot with fat layer exposed; E11.40 Type 2 diabetes mellitus with diabetic neuropathy, unspecified; Z89.421 Acquired absence of other right toe(s); R60.0 Localized edema; L53.9 Erythematous condition, unspecified
CPT/HCPCS: 11042

== ENCOUNTER → 2023-01-05 08:44 | Outpatient (CLI) | payer OTHER, SELFPAY ==
[2020-10-09 01:44] VITALS: BMI 39.6
== END ==
PROVIDERS: PCP Physician Assistant; Referring Provider Podiatrist; Visit Provider Surgery
DX: E11.621 Type 2 diabetes mellitus with foot ulcer (principal); L97.522 Non-pressure chronic ulcer of other part of left foot with fat layer exposed; E11.40 Type 2 diabetes mellitus with diabetic neuropathy, unspecified; M86.9 Osteomyelitis, unspecified; L53.9 Erythematous condition, unspecified
CPT/HCPCS: 11042

== ENCOUNTER → 2023-01-12 07:13 | Outpatient (CLI) | payer OTHER, SELFPAY ==
[2020-10-09 01:44] VITALS: BMI 39.6
--- NOTE | 2023-01-12 07:14 | DI.MRI.S_ITS ---
PROCEDURE: MR FOOT LT WO/W CON INDICATIONS: Non-healing DFU on left third toe TECHNIQUE: Noncontrast coronal T1 spin echo and STIR, sagittal T1 spin echo with fat saturation and STIR, axial T1 spin echo and T2 fast spin echo with fat saturation. After the administration of contrast, axial/sagittal/coronal T1 spin echo with fat saturation through the left foot. COMPARISON: [facility], CR, XR FOOT LT MIN 3V, 12/16/2022, 11:13. [facility], MR, MR FOOT RT WO/W CON, 12/31/2021, 19:56. FINDINGS: Image quality: Excellent. Bones: Moderate hallux valgus and lateral deviation at 2nd and 3rd MTP joints are seen. Osteoarthritic changes are noted throughout midfoot and forefoot joints more notably involving 4th and 5th TMT joints, 1st MTP joint and 1st interphalangeal joint with significant joint space narrowing, subchondral sclerosis and marginal osteophyte formation. There is marrow edema involving 3rd distal phalanx and show contrast enhancement. No definite bony erosion is seen. No other area of abnormal marrow signal No metatarsal stress fractures no area of abnormal periosteal reaction. No other area of abnormal intraosseous enhancement is seen. Soft tissues: Ulceration involving tip of 3rd toe is seen with adjacent soft tissue swelling and edema and show mild contrast enhancement. No discrete drainable peripherally enhancing abscess collection is noted. No soft tissue masses are visualized. Mild atrophy of visualized plantar foot muscles are seen. No intramuscular mass or abnormal enhancement. The extensor and flexor tendons are intact. IMPRESSION: 1. Finding is suggestive of ulceration involving tip of 3rd toe with adjacent cellulitis. No drainable abscess collection. 2. Diffuse marrow edema throughout 3rd distal phalanx concerning for osteomyelitis. 3. Moderate hallux valgus and lateral deviation at 2nd and 3rd MTP joint. Moderate midfoot and forefoot joint osteoarthritis as above. No acute fracture or dislocation. No metatarsal stress fractures. 4. No enhancing soft tissue mass. Mild atrophy of visualized plantar foot muscles. Flexor and extensor tendons are intact. Dictated by: Shailesh Lyon M.D. on 01/12/2023 at 12:39 Approved by: Shailesh Lyon M.D. on 01/12/2023 at 12:52
== END ==
PROVIDERS: PCP Physician Assistant; Referring Provider Surgery; Visit Provider Surgery
DX: E11.621 Type 2 diabetes mellitus with foot ulcer (principal); L97.529 Non-pressure chronic ulcer of other part of left foot with unspecified severity; M20.12 Hallux valgus (acquired), left foot; M19.072 Primary osteoarthritis, left ankle and foot
CPT/HCPCS: 73720

== ENCOUNTER → 2023-01-12 08:48 | Outpatient (CLI) | payer OTHER, SELFPAY ==
[2020-10-09 01:44] VITALS: BMI 39.6
== END ==
PROVIDERS: PCP Physician Assistant; Referring Provider Podiatrist; Visit Provider Surgery
DX: E11.621 Type 2 diabetes mellitus with foot ulcer (principal); L97.512 Non-pressure chronic ulcer of other part of right foot with fat layer exposed; L97.511 Non-pressure chronic ulcer of other part of right foot limited to breakdown of skin; L97.522 Non-pressure chronic ulcer of other part of left foot with fat layer exposed; L97.521 Non-pressure chronic ulcer of other part of left foot limited to breakdown of skin; M20.12 Hallux valgus (acquired), left foot; M19.072 Primary osteoarthritis, left ankle and foot; M19.012 Primary osteoarthritis, left shoulder; M21.6X2 Other acquired deformities of left foot; L84 Corns and callosities
CPT/HCPCS: 73720; 99213

== ENCOUNTER → 2023-01-19 09:14 | Outpatient (CLI) | payer OTHER, SELFPAY ==
[2020-10-09 01:44] VITALS: BMI 39.6
== END ==
PROVIDERS: PCP Physician Assistant; Referring Provider Podiatrist; Visit Provider Surgery
DX: E11.628 Type 2 diabetes mellitus with other skin complications (principal); Z86.31 Personal history of diabetic foot ulcer; L84 Corns and callosities
CPT/HCPCS: 99212; 99213

== ENCOUNTER → 2023-02-08 08:41 | Outpatient (CLI) | payer OTHER, SELFPAY ==
[2020-10-09 01:44] VITALS: BMI 39.6
== END ==
PROVIDERS: PCP Physician Assistant; Referring Provider Podiatrist; Visit Provider Surgery
DX: E11.40 Type 2 diabetes mellitus with diabetic neuropathy, unspecified (principal); Z86.31 Personal history of diabetic foot ulcer
CPT/HCPCS: 99212; 99213

== ENCOUNTER → 2023-10-12 08:31 | Outpatient (CLI) | payer MEDICARE, SELFPAY ==
[2020-10-09 01:44] VITALS: BMI 39.6
== END ==
PROVIDERS: PCP Physician Assistant; Referring Provider Podiatrist; Visit Provider Nurse Practitioner Family
DX: E11.621 Type 2 diabetes mellitus with foot ulcer (principal); L97.522 Non-pressure chronic ulcer of other part of left foot with fat layer exposed; R60.0 Localized edema; L53.9 Erythematous condition, unspecified; M21.6X9 Other acquired deformities of unspecified foot
CPT/HCPCS: 11042; 99214

== ENCOUNTER → 2023-10-13 12:28 | Outpatient (CLI) | payer MEDICARE, SELFPAY ==
[2020-10-09 01:44] VITALS: BMI 39.6
--- NOTE | 2023-10-13 12:29 | DI.RAD.S_ITS ---
PROCEDURE: XR FOOT RT MIN 3V INDICATIONS: Non-healing wound of right foot TECHNIQUE: 3 views of the foot were acquired. COMPARISON: [facility], CR, XR FOOT LT MIN 3V, 10/13/2023, 11:44. [facility], CR, XR FOOT RT MIN 3V, 12/16/2022, 11:13. FINDINGS: Diffuse osseous demineralization. 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 Severe hallux valgus with lateralization of the hallux sesamoids and clawtoe deformities of the digits. No clear osseous erosions or radiographic evidence of subcutaneous emphysema. IMPRESSION: No radiographic evidence of osteomyelitis. Consider MRI with and without contrast if there is persistent concern for osteomyelitis. Dictated by: Carlos Ashley M.D. on 10/13/2023 at 13:32 Approved by: Carlos Ashley M.D. on 10/13/2023 at 13:36
--- NOTE | 2023-10-13 12:29 | DI.RAD.S_ITS ---
PROCEDURE: XR FOOT LT MIN 3V INDICATIONS: Non-healing wound of left foot TECHNIQUE: 3 views of the foot were acquired. COMPARISON: [facility], CR, XR FOOT LT MIN 3V, 12/16/2022, 11:13. [facility], CR, XR FOOT RT MIN 3V, 12/16/2022, 11:13. [facility], CR, XR FOOT RT MIN 3V, 04/15/2022, 14:11. FINDINGS: Diffuse osseous demineralization. Severe hallux valgus with moderate 1st MTP and hallux inter sesamoid osteoarthritis. Clawtoe deformities of the 2nd - 5th digits. 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 No fracture or dislocation. IMPRESSION: Possible osteomyelitis of the 3rd digit distal phalangeal tuft. MRI of the forefoot with and without contrast would be recommended for further evaluation. Dictated by: Carlos Ashley M.D. on 10/13/2023 at 13:26 Approved by: Carlos Ashley M.D. on 10/13/2023 at 13:32
== END ==
PROVIDERS: PCP Internal Medicine; Referring Provider Nurse Practitioner Family; Visit Provider Nurse Practitioner Family
DX: L97.529 Non-pressure chronic ulcer of other part of left foot with unspecified severity (principal); L97.519 Non-pressure chronic ulcer of other part of right foot with unspecified severity; E08.621 Diabetes mellitus due to underlying condition with foot ulcer; M20.5X2 Other deformities of toe(s) (acquired), left foot; M20.5X1 Other deformities of toe(s) (acquired), right foot; M20.12 Hallux valgus (acquired), left foot; M20.11 Hallux valgus (acquired), right foot; Z89.421 Acquired absence of other right toe(s)
CPT/HCPCS: 73630

== ENCOUNTER → 2023-10-19 08:30 | Outpatient (CLI) | payer MEDICARE, SELFPAY ==
[2020-10-09 01:44] VITALS: BMI 39.6
== END ==
LOC: WC 08:31
PROVIDERS: PCP Internal Medicine; Referring Provider Podiatrist; Visit Provider Surgery
DX: E11.621 Type 2 diabetes mellitus with foot ulcer (principal); L97.522 Non-pressure chronic ulcer of other part of left foot with fat layer exposed; L97.512 Non-pressure chronic ulcer of other part of right foot with fat layer exposed; L53.9 Erythematous condition, unspecified; L84 Corns and callosities; M21.6X9 Other acquired deformities of unspecified foot
CPT/HCPCS: 11042

== ENCOUNTER → 2023-10-26 08:33 | Outpatient (CLI) | payer MEDICARE, SELFPAY ==
[2020-10-09 01:44] VITALS: BMI 39.6
== END ==
PROVIDERS: PCP Internal Medicine; Referring Provider Podiatrist; Visit Provider Surgery
DX: E11.621 Type 2 diabetes mellitus with foot ulcer (principal); L97.522 Non-pressure chronic ulcer of other part of left foot with fat layer exposed; L97.512 Non-pressure chronic ulcer of other part of right foot with fat layer exposed; L84 Corns and callosities; L53.8 Other specified erythematous conditions; E11.40 Type 2 diabetes mellitus with diabetic neuropathy, unspecified
CPT/HCPCS: 11042

== ENCOUNTER → 2023-11-02 08:31 | Outpatient (CLI) | payer MEDICARE, SELFPAY ==
[2020-10-09 01:44] VITALS: BMI 39.6
== END ==
PROVIDERS: PCP Internal Medicine; Referring Provider Podiatrist; Visit Provider Surgery
DX: E11.621 Type 2 diabetes mellitus with foot ulcer (principal); E11.42 Type 2 diabetes mellitus with diabetic polyneuropathy; L97.522 Non-pressure chronic ulcer of other part of left foot with fat layer exposed; L84 Corns and callosities; M21.6X2 Other acquired deformities of left foot
CPT/HCPCS: 11042

== ENCOUNTER → 2023-11-09 08:30 | Outpatient (CLI) | payer MEDICARE, SELFPAY ==
[2020-10-09 01:44] VITALS: BMI 39.6
== END ==
PROVIDERS: PCP Internal Medicine; Referring Provider Internal Medicine; Visit Provider Surgery
DX: E11.621 Type 2 diabetes mellitus with foot ulcer (principal); L97.522 Non-pressure chronic ulcer of other part of left foot with fat layer exposed; L84 Corns and callosities; M21.6X2 Other acquired deformities of left foot; F17.290 Nicotine dependence, other tobacco product, uncomplicated; R20.8 Other disturbances of skin sensation
CPT/HCPCS: 11042; 99213

== ENCOUNTER → 2023-11-16 08:05 | Outpatient (CLI) | payer MEDICARE, SELFPAY ==
[2020-10-09 01:44] VITALS: BMI 39.6
== END ==
LOC: WC 08:05
PROVIDERS: PCP Internal Medicine; Referring Provider Podiatrist; Visit Provider Surgery
DX: E11.42 Type 2 diabetes mellitus with diabetic polyneuropathy (principal); E11.621 Type 2 diabetes mellitus with foot ulcer; L97.522 Non-pressure chronic ulcer of other part of left foot with fat layer exposed; L84 Corns and callosities; M21.6X2 Other acquired deformities of left foot
CPT/HCPCS: 11042

== ENCOUNTER → 2023-11-23 09:24 | Outpatient (CLI) | payer MEDICARE, SELFPAY ==
[2020-10-09 01:44] VITALS: BMI 39.6
== END ==
PROVIDERS: PCP Internal Medicine; Referring Provider Podiatrist; Visit Provider Surgery
DX: E11.621 Type 2 diabetes mellitus with foot ulcer (principal); E11.42 Type 2 diabetes mellitus with diabetic polyneuropathy; L97.522 Non-pressure chronic ulcer of other part of left foot with fat layer exposed; L84 Corns and callosities; M21.6X2 Other acquired deformities of left foot
CPT/HCPCS: 11042

== ENCOUNTER → 2023-11-30 08:11 | Outpatient (CLI) | payer MEDICARE, SELFPAY ==
[2020-10-09 01:44] VITALS: BMI 39.6
== END ==
PROVIDERS: PCP Internal Medicine; Referring Provider Podiatrist; Visit Provider Surgery
DX: Z09 Encounter for follow-up examination after completed treatment for conditions other than malignant neoplasm (principal); Z86.31 Personal history of diabetic foot ulcer; M21.6X2 Other acquired deformities of left foot; L84 Corns and callosities
CPT/HCPCS: 99213

== ENCOUNTER → 2023-12-06 08:32 | Outpatient (CLI) | payer MEDICARE, SELFPAY ==
[2020-10-09 01:44] VITALS: BMI 39.6
== END ==
PROVIDERS: PCP Internal Medicine; Referring Provider Podiatrist; Visit Provider Surgery
DX: Z09 Encounter for follow-up examination after completed treatment for conditions other than malignant neoplasm (principal); Z86.31 Personal history of diabetic foot ulcer
CPT/HCPCS: 99212; 99213